=== PATIENT | female | born 1935 | race African-American/Black ===

== ENCOUNTER → 2016-04-08 | Outpatient (CLI) | payer MEDICARE, OTHER ==
[2016-04-08 12:24] LABS: ABSOLUTE EOSINOPHILS # (AUTO) 0.1 10^3/uL (0.0-0.6); ABSOLUTE LYMPHOCYTES (AUTO) 2.1 10^3/uL (0.5-4.7); ABSOLUTE MONOCYTES (AUTO) 0.5 10^3/uL (0.1-1.4); ABSOLUTE NEUT (AUTO) 2.7 10^3/uL (1.7-8.2); BASOPHILS % (AUTO) 0.8 % (0-2); EOSINOPHILS % (AUTO) 1.5 % (0-6); HEMATOCRIT 37.7 % (36.0-47.0); HEMOGLOBIN 11.7 g/dL (12.0-15.5); HGB HCT DIFFERENCE -2.6; LYMPHOCYTES % (AUTO) 38.9 % (13-45); MEAN CORPUSCULAR HEMOGLOBIN 27.4 pg (27.0-33.4); MEAN CORPUSCULAR VOLUME 88 fl (80-97); MONOCYTES % (AUTO) 8.6 % (3-13); RED BLOOD COUNT 4.26 10^6/uL (3.72-5.28); RED CELL DISTRIBUTION WIDTH 17.3 % (11.5-14.0); SEGMENTED NEUTROPHILS % (AUTO) 50.2 % (42-78); WHITE BLOOD COUNT 5.4 10^3/uL (4.0-10.5)
[2016-04-08 12:47] LABS: ALANINE AMINOTRANSFERASE 29 U/L (9-52); ALBUMIN 4.3 g/dL (3.5-5.0); ALKALINE PHOSPHATASE 79 U/L (38-126); ANION GAP 8 (5-19); ASPARTATE AMINO TRANSFERASE 21 U/L (14-36); BILIRUBIN,TOTAL 0.8 mg/dL (0.2-1.3); BLOOD UREA NITROGEN 24 mg/dL (7-20); CALCIUM 9.6 mg/dL (8.4-10.2); CARBON DIOXIDE 29 mmol/L (22-30); CHLORIDE 105 mmol/L (98-107); CREATINE KINASE 72 U/L (30-135); CREATININE RESULT 0.68 mg/dL (0.52-1.25); GLUCOSE 95 mg/dL (75-110); POTASSIUM 4.7 mmol/L (3.6-5.0); SODIUM 142.1 mmol/L (137-145); TOTAL PROTEIN 7.2 g/dL (6.3-8.2); URIC ACID 5.9 mg/dL (2.5-7.5)
[2016-04-08 12:51] LABS: C-REACTIVE PROTEIN < 5.0 mg/L (<10.0)
[2016-04-08 13:03] LABS: ERYTHROCYTE SEDIMENTATION RATE 14 mm/hr (0-30)
== END ==
LOC: OD 11:01
PROVIDERS: ATTEND Internal Medicine Rheumatology
DX: M79.1 Myalgia (principal); Z79.899 Other long term (current) drug therapy; M25.50 Pain in unspecified joint; M79.609 Pain in unspecified limb; M15.0 Primary generalized (osteo)arthritis; M54.5 Low back pain; M05.79 Rheumatoid arthritis with rheumatoid factor of multiple sites without organ or systems involvement; G89.4 Chronic pain syndrome; M10.9 Gout, unspecified
CPT/HCPCS: 36415; 80053; 82550; 84550; 85025; 85652; 86140

== ENCOUNTER → 2016-05-22 | Outpatient (CLI) | payer MEDICARE, OTHER ==
[2016-05-22 15:13] LABS: ALANINE AMINOTRANSFERASE 30 U/L (9-52); ALBUMIN 3.6 g/dL (3.5-5.0); ALKALINE PHOSPHATASE 70 U/L (38-126); ANION GAP 8 (5-19); ASPARTATE AMINO TRANSFERASE 23 U/L (14-36); BILIRUBIN,TOTAL 0.8 mg/dL (0.2-1.3); BLOOD UREA NITROGEN 15 mg/dL (7-20); CALCIUM 9.4 mg/dL (8.4-10.2); CARBON DIOXIDE 30 mmol/L (22-30); CHLORIDE 103 mmol/L (98-107); CHOLESTEROL 134.05 mg/dL (0-200); CREATININE RESULT 0.72 mg/dL (0.52-1.25); Direct HDL 59 mg/dL (>40); GLUCOSE 91 mg/dL (75-110); SODIUM 140.9 mmol/L (137-145); TOTAL PROTEIN 6.4 g/dL (6.3-8.2); TRIGLYCERIDES 48 mg/dL (<150)
[2016-05-22 15:14] LABS: POTASSIUM 4.7 mmol/L (3.6-5.0)
[2016-05-22 15:29] LABS: DIRECT LDL 58 mg/dL (<100)
== END ==
LOC: OD 13:30
PROVIDERS: ATTEND Internal Medicine
DX: Z79.899 Other long term (current) drug therapy (principal)
CPT/HCPCS: 36415; 80053; 80061

== ENCOUNTER 2016-06-06 16:46 | Emergency (ER) | payer MEDICARE, OTHER ==
--- NOTE | 2016-06-06 19:24 | ER Document Report ---
ED General - General Chief Complaint: Near Syncope Stated Complaint: WEAKNESS Notes: Patient is a 80-year-old woman with a history of recurrent syncope who presents after an episode of near-syncope today. States that she was at home with her at home physical therapy assist when she had one of these episodes. That healthcare worker wanted her to be evaluated. At time of my assessment patient denies any complaints. She is immediate asking when she can go home. Denies any chest pain, shortness of breath, headache, neck pain nausea or vomiting. She has not seen her primary care doctor regarding today's episode. Nothing has been noticed to trigger these episodes and they do resolve spontaneously. States this is identical to her prior episodes. TRAVEL OUTSIDE OF THE [place] IN LAST 30 DAYS: No - Related Data Allergies/Adverse Reactions: Penicillins Allergy (Verified 04/17/15 21:11) Past Medical History - General Information source: Patient - Social History Smoking Status: Never Smoker Frequency of alcohol use: None Drug Abuse: None Lives with: Alone Family History: Reviewed & Not Pertinent - Past Medical History Cardiac Medical History: Reports: Hx Atrial Fibrillation - intermittent, Hx Congestive Heart Failure, Hx Hypercholesterolemia, Hx Hypertension Pulmonary Medical History: Reports: Hx Asthma, Hx COPD Denies: Hx Tuberculosis Endocrine Medical History: Reports: Hx Diabetes Mellitus Type 2 GI Medical History: Reports: Hx Gastroesophageal Reflux Disease Musculoskeltal Medical History: Reports Hx Arthritis Past Surgical History: Reports: Hx Cardiac Surgery - implanted recorder, Hx Cholecystectomy, Hx Hysterectomy - Immunizations Hx Diphtheria, Pertussis, Tetanus Vaccination: Yes Hx Pneumococcal Vaccination: 03/17/12 Review of Systems - Review of Systems Notes: Constitutional: Negative for fever. HENT: Negative for sore throat. Eyes: Negative for visual changes. Cardiovascular: Negative for chest pain. Respiratory: Negative for shortness of breath. Gastrointestinal: Negative for abdominal pain, vomiting or diarrhea. Genitourinary: Negative for dysuria. Musculoskeletal: Negative for back pain. Skin: Negative for rash. Neurological: Negative for headaches, weakness or numbness. 10 point ROS negative except as marked above and in HPI. Physical Exam - Vital signs Vitals: Temp Pulse Resp BP Pulse Ox 98.1 F 72 16 125/66 95 06/06/16 17:00 06/06/16 17:00 06/06/16 17:00 06/06/16 17:00 06/06/16 17:00 Interpretation: Normal Notes: PHYSICAL EXAMINATION: GENERAL: Well-appearing, well-nourished and in no acute distress. HEAD: Atraumatic, normocephalic. EYES: Pupils equal round and reactive to light, extraocular movements intact, sclera anicteric, conjunctiva are normal. ENT: nares patent, oropharynx clear without exudates. Moist mucous membranes. NECK: Normal range of motion, supple without lymphadenopathy LUNGS: Breath sounds clear to auscultation bilaterally and equal. No wheezes rales or rhonchi. HEART: Regular rate and rhythm without murmurs ABDOMEN: Soft, nontender, normoactive bowel sounds. No guarding, no rebound. No masses appreciated. EXTREMITIES: Normal range of motion, no pitting or edema. No cyanosis. NEUROLOGICAL: No focal neurological deficits. Moves all extremities spontaneously and on command. PSYCH: Normal mood, normal affect. SKIN: Warm, Dry, normal turgor, no rashes or lesions noted. Course - Re-evaluation Re-evalutation: 06/06/16 19:23 Presentation of near syncope of unclear etiology although patient regularly has these events. Patient states that her home his therapist was concerned about how she appeared during this episode and wanted her evaluated. Patient normotensive, alert, without focal neurologic deficits at time of arrival. Denies syncope was during exertion. No preceding symptoms of palpitations, chest pain, or shortness of breath. Patient asymptomatic at time of arrival. EKG is without evidence of HCOM, right heart strain, ST changes to suggest ischemia, prolong QTc, delta wave, epsilon wave, or Brugada syndrome. Patient denies any family history of sudden cardiac , personal history of of structural heart disease. Patient denies any symptoms to suggest an acute PE, PR , TAD, SAH, seizure, or acute GI bleed as the etiology of their syncope today. On exam, no murmurs to suggest critical aortic stenosis as possible etiology. Based on overall clinical history, exam findings, vitals, and patients appearance, I feel it is safe for patient to be discharged home at this time with close outpatient follow-up and strict return precautions. Patient is in agreement with this plan, has verbalized indications for return to ED, and questions have been answered. - Vital Signs Vital signs: Temp Pulse Resp BP Pulse Ox 98.2 F 79 16 148/56 H 94 06/06/16 21:43 06/06/16 21:43 06/06/16 21:43 06/06/16 21:43 06/06/16 21:43 - Laboratory Result Diagrams: 06/06/16 17:50 06/06/16 17:50 Laboratory results interpreted by me: 06/06/16 06/06/16 17:50 17:50 Hgb 11.5 L MCHC 31.5 L RDW 15.8 H Carbon Dioxide 31 H BUN 21 H - EKG Interpretation by Me Additional EKG results interpreted by me: 06/06/16 20:51 Normal sinus rhythm. Rate 79. No ST elevations or depressions. QTC is 459. Discharge - Discharge Clinical Impression: Near syncope Condition: Good Disposition: HOME, SELF-CARE Additional Instructions: You were seen today after an episode of passing out. Your EKG here is normal. At this time, we do not feel that your episode of passing out was from any life- threatening cause. Please drink plenty of fluids over the next several days. Return to emergency department if you have any further episodes of syncope, headache, weakness, numbness, chest pain, or shortness of breath. Please follow up closely with your primary care physician. Referrals: ONUR CAMPO MD [Primary Care Provider] - Follow up as needed
[2016-06-06 20:09] LABS: HEMATOCRIT 36.6 % (36.0-47.0); HEMOGLOBIN 11.5 g/dL (12.0-15.5); HGB HCT DIFFERENCE -2.1; MEAN CORPUSCULAR HEMOGLOBIN 27.6 pg (27.0-33.4); MEAN CORPUSCULAR HGB CONC 31.5 g/dL (32.0-36.0); MEAN CORPUSCULAR VOLUME 88 fl (80-97); RED BLOOD COUNT 4.17 10^6/uL (3.72-5.28); RED CELL DISTRIBUTION WIDTH 15.8 % (11.5-14.0); WHITE BLOOD COUNT 7.2 10^3/uL (4.0-10.5)
[2016-06-06 20:26] LABS: ANION GAP 9 (5-19); BLOOD UREA NITROGEN 21 mg/dL (7-20); CARBON DIOXIDE 31 mmol/L (22-30); CHLORIDE 101 mmol/L (98-107); CREATININE RESULT 0.88 mg/dL (0.52-1.25); GLUCOSE 104 mg/dL (75-110); POTASSIUM 4.2 mmol/L (3.6-5.0); SODIUM 140.9 mmol/L (137-145)
--- NOTE | 2016-06-06 20:52 | EKG REPORT ---
SEVERITY:- NORMAL ECG - SINUS RHYTHM : Confirmed by: Chin Rivers 06-Jun-2016 20:51:49
[2016-06-06 22:00] VITALS: BP 148/56
== END 2016-06-06 21:58 | disposition home or self-care (01) ==
LOC: ER 16:46
DX: R55 Syncope and collapse (principal); R53.1 Weakness
CPT/HCPCS: 36415; 80048; 85027; 93005; 93010; 99284

== ENCOUNTER 2016-06-10 15:20 | Emergency (ER) | payer MEDICARE, OTHER ==
[2016-06-10 17:21] LABS: ABSOLUTE EOSINOPHILS # (AUTO) 0.1 10^3/uL (0.0-0.6); ABSOLUTE LYMPHOCYTES (AUTO) 1.8 10^3/uL (0.5-4.7); ABSOLUTE MONOCYTES (AUTO) 0.5 10^3/uL (0.1-1.4); ABSOLUTE NEUT (AUTO) 2.9 10^3/uL (1.7-8.2); BASOPHILS % (AUTO) 0.5 % (0-2); HEMATOCRIT 38.2 % (36.0-47.0); HEMOGLOBIN 12.3 g/dL (12.0-15.5); HGB HCT DIFFERENCE -1.3; LYMPHOCYTES % (AUTO) 33.2 % (13-45); MEAN CORPUSCULAR HEMOGLOBIN 27.8 pg (27.0-33.4); MEAN CORPUSCULAR HGB CONC 32.1 g/dL (32.0-36.0); MEAN CORPUSCULAR VOLUME 87 fl (80-97); MONOCYTES % (AUTO) 10.2 % (3-13); RED BLOOD COUNT 4.41 10^6/uL (3.72-5.28); RED CELL DISTRIBUTION WIDTH 15.8 % (11.5-14.0); SEGMENTED NEUTROPHILS % (AUTO) 55.1 % (42-78); WHITE BLOOD COUNT 5.3 10^3/uL (4.0-10.5)
[2016-06-10 17:35] LABS: ALANINE AMINOTRANSFERASE 31 U/L (9-52); ALBUMIN 3.9 g/dL (3.5-5.0); ALKALINE PHOSPHATASE 86 U/L (38-126); ANION GAP 9 (5-19); ASPARTATE AMINO TRANSFERASE 27 U/L (14-36); BILIRUBIN,DIRECT 0.1 mg/dL (0.0-0.4); BILIRUBIN,TOTAL 0.9 mg/dL (0.2-1.3); BLOOD UREA NITROGEN 11 mg/dL (7-20); CALCIUM 9.9 mg/dL (8.4-10.2); CARBON DIOXIDE 33 mmol/L (22-30); CHLORIDE 100 mmol/L (98-107); CREATININE RESULT 0.66 mg/dL (0.52-1.25); GLUCOSE 88 mg/dL (75-110); POTASSIUM 4.3 mmol/L (3.6-5.0); SODIUM 141.6 mmol/L (137-145); TOTAL PROTEIN 6.7 g/dL (6.3-8.2)
--- NOTE | 2016-06-10 19:11 | EKG REPORT ---
SEVERITY:- NORMAL ECG - SINUS RHYTHM : Confirmed by: Louisa Alexis MD 10-Jun-2016 19:10:32
[2016-06-10 21:46] LABS: APPEARANCE,URINE CLEAR; BILIRUBIN,URINE NEGATIVE (NEGATIVE); GLUCOSE, URINE NEGATIVE (NEGATIVE); KETONES,URINE TRACE mg/dL (NEGATIVE); LEUKOCYTE ESTERASE,URINE NEGATIVE (NEGATIVE); NITRITE,URINE NEGATIVE (NEGATIVE); PROTEIN,URINE NEGATIVE (NEGATIVE); URINE SPECIFIC GRAVITY 1.015
--- NOTE | 2016-06-10 22:50 | ER Document Report ---
ED General - General Chief Complaint: Urinary Problem Stated Complaint: WEAKNESS Mode of Arrival: Medic Information source: Patient, Emergency Med Personnel, [facility] Records Notes: This is a 80-year-old female with multiple medical problems who presents via EMS for generalized weakness and failure to thrive. Of note this patient lives alone and has had to call 911 multiple times more than 15 times this past week for persistence getting out of her chair. She states that she is too weak to get up and move around her house. Apparently Adult Protective Services was involved in the worker came out to the house today but the patient was not able to get up to unlock the door for her. Secondary to generalized weakness and inability to get up out of the chair, the patient has not been taking her home medications consistently. Otherwise she has no complaints. She denies fevers or chills. She has been tolerating food without problem. No abdominal pain nausea or vomiting. She denies any dysuria. TRAVEL OUTSIDE OF THE [place] IN LAST 30 DAYS: No - Related Data Allergies/Adverse Reactions: Penicillins Allergy (Verified 04/17/15 21:11) Home Medications: Current Home Medications Warfarin Sodium [Coumadin 5 mg Tablet] 7.5 mg PO Q7D 06/11/16 [History] Past Medical History - General Information source: Patient, [facility] Records - Social History Smoking Status: Never Smoker Chew tobacco use (# tins/day): No Frequency of alcohol use: None Drug Abuse: None Family History: Reviewed & Not Pertinent - Past Medical History Cardiac Medical History: Reports: Hx Atrial Fibrillation - intermittent, Hx Congestive Heart Failure, Hx Hypercholesterolemia, Hx Hypertension Pulmonary Medical History: Reports: Hx Asthma, Hx COPD Denies: Hx Tuberculosis Endocrine Medical History: Reports: Hx Diabetes Mellitus Type 2 GI Medical History: Reports: Hx Gastroesophageal Reflux Disease Musculoskeltal Medical History: Reports Hx Arthritis Past Surgical History: Reports: Hx Cardiac Surgery - implanted recorder, Hx Cholecystectomy, Hx Hysterectomy - Immunizations Hx Diphtheria, Pertussis, Tetanus Vaccination: Yes Hx Pneumococcal Vaccination: 03/17/12 Review of Systems - Review of Systems Notes: REVIEW OF SYSTEMS: CONSTITUTIONAL : Denies fever, chills, or sweats. Denies recent illness. EENT: Denies eye, ear, throat, or mouth pain or symptoms. Denies nasal or sinus congestion. CARDIOVASCULAR: Denies chest pain. RESPIRATORY: Denies cough, cold, or chest congestion. Denies shortness of breath, difficulty breathing, or wheezing. GASTROINTESTINAL: Denies abdominal pain. Denies nausea, vomiting, or diarrhea. GENITOURINARY: Denies difficulty urinating, painful urination, burning, frequency, or blood in urine. MUSCULOSKELETAL: Denies neck or back pain or joint pain or swelling. SKIN: Denies rash or skin lesions. HEMATOLOGIC : Denies easy bruising or bleeding. LYMPHATIC: Denies swollen, enlarged glands. NEUROLOGICAL: Denies altered mental status or loss of consciousness. Denies headache. Generalized weakness as per history of present illness PSYCHIATRIC: Denies anxiety or stress or depression. ALL OTHER SYSTEMS REVIEWED AND NEGATIVE. Physical Exam - Vital signs Vitals: Temp Pulse Resp BP Pulse Ox 99.6 F 80 16 159/54 H 94 06/11/16 04:53 06/11/16 04:53 06/11/16 04:53 06/11/16 04:53 06/11/16 04:53 - Notes Notes: PHYSICAL EXAMINATION: GENERAL: Somewhat disheveled but otherwise Well-appearing, well-nourished and in no acute distress. Pleasant and conversant HEAD: Atraumatic, normocephalic. EYES: Pupils equal round and reactive to light, extraocular movements intact, sclera anicteric, conjunctiva are normal. ENT: nares patent, oropharynx clear without exudates. Moist mucous membranes. NECK: Normal range of motion, supple without lymphadenopathy LUNGS: Breath sounds clear to auscultation bilaterally and equal. No wheezes rales or rhonchi. HEART: Regular rate and rhythm without murmurs ABDOMEN: Soft, nontender, normoactive bowel sounds. No guarding, no rebound. No masses appreciated. EXTREMITIES: Normal range of motion, no pitting or edema. No cyanosis. NEUROLOGICAL: Cranial nerves grossly intact. Alert and oriented 4. No gross focal motor or sensory deficits appreciated. PSYCH: Normal mood, normal affect. SKIN: Warm, Dry, normal turgor, no rashes or lesions noted. Course - Re-evaluation Re-evalutation: 06/10/16 22:58 Discussed with pt's PCP Dr. Campo... who states that there is no medical need for admission at this time. However, I do not feel that patient is appropriate for discharge home at this time, as she lives alone and she cannot care for herself as she is too weak to get up out of her chair and she has not been taking her medications. As noted, she has called EMS over 15 times this week for assistance with getting up. respiratory services manager has been consulted in the ER and will resume their evaluation and recommendations in the morning. [facility] is involved with the case as well. 06/11/16 17:50 Pt with no new complaints today. She has remained hemodynamically stable and comfortable in the ER. I have reviewed the notes from social work. Social work plan and disposition as noted below: AT THIS TIME, PATIENT DOES NOT MEET INPATIENT CRITERIA, THEREFORE, IS NOT ELIGIBLE FOR REHABILITATION PLACEMENT. PER ROOPA, PATIENT'S DAUGHTER, ABIOLA ), HAS BEEN ASKING PATIENT TO COME LIVE WITH HER FOR QUITE SOME TIME. THIS RN AND ROOPA, BOTH, EDUCATED PATIENT ON RISKS OF GOING HOME ALONE. PATIENT , WHO IS ALERT AND ORIENTED X4, STATED THAT SHE WOULD RATHER RETURN HOME TO BEGIN WITH SO SHE CAN GET HER BILLS ORGANIZED AND THEN SHE MAY BE WILLING TO MOVE WITH HER DAUGHTER. THIS RN SPOKE WITH [place], [employer]RE DRAWER FOR DR CAMPO, WHO ALSO REPORTS THAT PATIENT DOES NOT MEET INPATIENT CRITERIA. AT THIS TIME, AT PATIENT'S REQUEST, PATIENT WILL BE DISCHARGED HOME. PATIENT VERBALIZED UNDERSTANDING. Patient understands the risks of going home alone and she is alert and oriented to make this decision for herself. - Vital Signs Vital signs: Temp Pulse Resp BP Pulse Ox 98.4 F 78 16 154/90 H 98 06/11/16 18:00 06/11/16 18:00 06/11/16 18:00 06/11/16 18:00 06/11/16 18:00 - Laboratory Result Diagrams: 06/10/16 17:05 06/10/16 17:05 Laboratory results interpreted by me: 06/10/16 06/10/16 06/10/16 17:05 17:05 21:30 RDW 15.8 H Carbon Dioxide 33 H Urine Ketones TRACE H Urine Blood SMALL H Urine Urobilinogen 2.0 H - Diagnostic Test Radiology reviewed: Reports reviewed - CXR neg Discharge - Discharge Clinical Impression: Generalized weakness, Failure to thrive in adult Condition: Stable Disposition: HOME, SELF-CARE Additional Instructions: As discussed with psychiatric social worker and with your baker test at [facility], it is advised that you proceed with arrangements to live with family such as your daughter. Please return to the emergency department for any worsening symptoms or concerns especially for any chest pain, fever, breathing trouble or other concerns. Follow up with Dr. Campo this week as instructed.
[2016-06-11] MEDS ORDERED: ALBUTEROL SULFATE HFA (90 MCG/PUFF) 200 PUFF/8.5 GM MDI IH PRN (02:20)
[2016-06-11] MEDS ORDERED: (PENDING PHARMACY ID) (Warfarin Sodium 5 MG) PO PRN (02:27)
[2016-06-11] MEDS ORDERED: TRAMADOL HCL 50 MG TABLET PO PRN (02:27)
[2016-06-11] MEDS ORDERED: (PENDING PHARMACY ID) (Warfarin Sodium 7.5 MG) PO SCH (02:30)
[2016-06-11] MEDS ORDERED: ERGOCALCIFEROL (VITAMIN D2) 50000 UNIT (1.25 MG) CAPSULE PO SCH ×2 (03:00→07:30)
[2016-06-11] MEDS ORDERED: LANSOPRAZOLE 30 MG TAB.RAP.DR PO SCH (06:00)
[2016-06-11] MEDS: CLINDAMYCIN HCL 150 MG CAPSULE PO SCH ×2 (06:36→20:02)
[2016-06-11] MEDS: PROCHLORPERAZINE MALEATE 10 MG TABLET PO SCH ×2 (06:39→12:00)
[2016-06-11] MEDS ORDERED: LORATADINE 10 MG TABLET PO SCH (10:00)
[2016-06-11] MEDS ORDERED: BUDESONIDE/FORMOTEROL 160-4.5 MCG 60 PUFF/6 GM MDI IH SCH (10:00)
[2016-06-11] MEDS ORDERED: TIOTROPIUM BROMIDE DPI 5 CAP/KIT (18 MCG/CAP) IH SCH (10:00)
[2016-06-11] MEDS ORDERED: CALCIUM CARBONATE 250 MG/VITAMIN D3 125 UNIT TABLET PO SCH (10:00)
[2016-06-11] MEDS ORDERED: CIPROFLOXACIN HCL 500 MG TABLET PO SCH (10:00)
[2016-06-11] MEDS ORDERED: FOLIC ACID 1 MG TABLET PO SCH (10:00)
[2016-06-11] MEDS ORDERED: ALLOPURINOL 100 MG TABLET PO SCH (10:00)
[2016-06-11] MEDS ORDERED: LOSARTAN POTASSIUM 50 MG TABLET PO SCH (10:00)
[2016-06-11] MEDS ORDERED: CYANOCOBALAMIN (VITAMIN B-12) 1,000 MCG TABLET PO SCH (10:00)
[2016-06-11] MEDS ORDERED: (PENDING PHARMACY ID) (Warfarin Sodium 5 MG) PO SCH (22:00)
[2016-06-11] MEDS ORDERED: WARFARIN SODIUM 5 MG TABLET PO SCH (22:00)
[2016-06-12 01:58] VITALS: BP 101/72
[2016-06-14] MEDS ORDERED: METHOTREXATE SODIUM 2.5 MG TABLET PO SCH ×2 (10:00)
[2016-06-15] MEDS ORDERED: WARFARIN SODIUM 7.5 MG TABLET PO SCH (22:00)
[2016-06-15] MEDS ORDERED: (PENDING PHARMACY ID) (Warfarin Sodium 7.5 MG) PO SCH (22:00)
== END 2016-06-11 21:10 | disposition home or self-care (01) ==
LOC: ER 15:20
DX: R53.1 Weakness (principal); R62.7 Adult failure to thrive; R39.198 Other difficulties with micturition; Z79.01 Long term (current) use of anticoagulants
CPT/HCPCS: 93005; 99285; 36415; 85025; 80053; 81001; 71010; 93010; A9270 ×9; J3490 ×2; S0183

== ENCOUNTER → 2016-09-03 | Outpatient (CLI) | payer MEDICARE, OTHER ==
[2016-09-03 14:38] LABS: ABSOLUTE EOSINOPHILS # (AUTO) 0.1 10^3/uL (0.0-0.6); ABSOLUTE LYMPHOCYTES (AUTO) 2.1 10^3/uL (0.5-4.7); ABSOLUTE MONOCYTES (AUTO) 0.3 10^3/uL (0.1-1.4); ABSOLUTE NEUT (AUTO) 1.7 10^3/uL (1.7-8.2); EOSINOPHILS % (AUTO) 2.4 % (0-6); HEMATOCRIT 38.9 % (36.0-47.0); HEMOGLOBIN 12.3 g/dL (12.0-15.5); LYMPHOCYTES % (AUTO) 48.5 % (13-45); MEAN CORPUSCULAR HEMOGLOBIN 27.4 pg (27.0-33.4); MEAN CORPUSCULAR HGB CONC 31.7 g/dL (32.0-36.0); MEAN CORPUSCULAR VOLUME 86 fl (80-97); RED CELL DISTRIBUTION WIDTH 16.1 % (11.5-14.0); SEGMENTED NEUTROPHILS % (AUTO) 40.1 % (42-78); WHITE BLOOD COUNT 4.3 10^3/uL (4.0-10.5)
[2016-09-03 15:04] LABS: ALANINE AMINOTRANSFERASE 21 U/L (9-52); ALBUMIN 4.1 g/dL (3.5-5.0); ALKALINE PHOSPHATASE 80 U/L (38-126); ANION GAP 11 (5-19); ASPARTATE AMINO TRANSFERASE 24 U/L (14-36); BILIRUBIN,DIRECT 0.3 mg/dL (0.0-0.4); BILIRUBIN,TOTAL 0.8 mg/dL (0.2-1.3); BLOOD UREA NITROGEN 18 mg/dL (7-20); CALCIUM 9.4 mg/dL (8.4-10.2); CARBON DIOXIDE 27 mmol/L (22-30); CHLORIDE 103 mmol/L (98-107); CHOLESTEROL 174.88 mg/dL (0-200); CREATININE RESULT 0.77 mg/dL (0.52-1.25); Direct HDL 73 mg/dL (>40); GLUCOSE 83 mg/dL (75-110); POTASSIUM 4.4 mmol/L (3.6-5.0); SODIUM 141.2 mmol/L (137-145); TOTAL PROTEIN 7.3 g/dL (6.3-8.2); TRIGLYCERIDES 60 mg/dL (<150)
[2016-09-03 15:14] LABS: DIRECT LDL 80 mg/dL (<100)
== END ==
LOC: OD 13:29
PROVIDERS: ATTEND Internal Medicine
DX: E78.2 Mixed hyperlipidemia (principal); R79.89 Other specified abnormal findings of blood chemistry; Z13.29 Encounter for screening for other suspected endocrine disorder; Z79.899 Other long term (current) drug therapy; E55.9 Vitamin D deficiency, unspecified
CPT/HCPCS: 36415; 80053; 80061; 82306; 84443; 85025

== ENCOUNTER → 2017-01-07 | Outpatient (CLI) | payer MEDICARE, OTHER ==
--- NOTE | 2017-01-07 16:14 | WOMENS IMAGING REPORT ---
EXAM DESCRIPTION: BILAT SCREENING MAMMO W/CAD COMPLETED DATE/TIME: 01/07/2017 2:18 pm REASON FOR STUDY: ROUTINE SCREENING; Z12.31 Z12.31 ENCNTR SCREEN MAMMOGRAM FOR MALIGNANT NEOPLASM O F LINDSEY COMPARISON: 12/28/2015 and 10/18/2014. TECHNIQUE: Standard craniocaudal and mediolateral oblique views of each breast recorded using digita l acquisition. LIMITATIONS: None. FINDINGS: No masses, calcifications or architectural distortion. No areas of suspicion. Read with the assistance of CAD. .[facility] - R2 Cenova Version 1.3 .[facility] - R2 Cenova Version 1.3 .[facility] - R2 Cenova Version 2.4 .[facility] [place] [place] - R2 Cenova Version 2.4 .[facility] - R2 Stripe Matcher Version 9.2 IMPRESSION: NORMAL MAMMOGRAM. BIRADS 1. BREAST DENSITY: b. There are scattered areas of fibroglandular density. BIRAD: 1 NEGATIVE RECOMMENDATION: ROUTINE SCREENING COMMENT: The patient has been notified of the results by letter per MQSA requirements. Additional no tification policies are in place for contacting patient with suspicious or incomplete findings. Quality ID #[id number]: [employer] recommends an annual screening mammogram for women aged 40 years or over. This facility utilizes a reminder system to ensure that all patients receive reminder letters, and/or direct phone calls for appointments. This includes reminders for routine scr eening mammograms, diagnostic mammograms, or other Breast Imaging Interventions when appropriate. Th is patient will be placed in the appropriate reminder system. [employer] [place] [employer] (ACR) has developed recommendations for screening MRI of the breast s in certain patient populations, to be used in conjunction with mammography. Breast MRI surveillanc e may be appropriate for women with more than 20% lifetime risk of developing breast cancer as deter mined by genetic testing, significant family history of the disease, or history of mantle radiation f or Hodgkins Disease. ACR Practice Guidelines 2008. TECHNICAL DOCUMENTATION: FINDING NUMBER: (1) ASSESSMENT: (1) JOB ID: [id number] [email or web address]- All Rights Reserved
== END ==
LOC: WI 10:46
PROVIDERS: ATTEND Internal Medicine
DX: Z12.31 Encounter for screening mammogram for malignant neoplasm of breast (principal)
CPT/HCPCS: 77067; G0202

== ENCOUNTER 2017-03-20 09:48 | Emergency (ER) | payer MEDICARE, OTHER ==
--- NOTE | 2017-03-20 10:11 | ER Document Report ---
ED GI/ - General Chief Complaint: Pain With Urination Stated Complaint: POSSIBLE UTI Time Seen by Provider: 03/20/17 09:54 Mode of Arrival: Ambulatory - Uses a walker Information source: [facility], [facility] Records Notes: This 81-year-old female patient who lives alone at home but gets [facility] to come in by and help with activities and wound dressings. She reports she thinks she has been developing urinary tract infection for several days. She has not had much energy and spent more time sitting in her wheelchair in her diaper. She does have a very slightly elevated temperature today that is less than 100. There are no other systemic symptoms reported. TRAVEL OUTSIDE OF THE [place] IN LAST 30 DAYS: No - Related Data Allergies/Adverse Reactions: Penicillins Allergy (Verified 03/20/17 09:49) Past Medical History - General Information source: Patient, [facility] Records - Social History Smoking Status: Never Smoker Cigarette use (# per day): No Chew tobacco use (# tins/day): No Smoking Education Provided: No Frequency of alcohol use: None Drug Abuse: None Occupation: Retired Lives with: Alone Family History: Reviewed & Not Pertinent Patient has suicidal ideation: No Patient has homicidal ideation: No - Past Medical History Cardiac Medical History: Reports: Hx Atrial Fibrillation - intermittent, Hx Congestive Heart Failure, Hx Hypercholesterolemia, Hx Hypertension Pulmonary Medical History: Reports: Hx Asthma, Hx COPD EENT Medical History: Reports: None Neurological Medical History: Reports: None Endocrine Medical History: Reports: Hx Diabetes Mellitus Type 2 Renal/ Medical History: Reports: None GI Medical History: Reports: Hx Gastroesophageal Reflux Disease Musculoskeltal Medical History: Reports Hx Arthritis - 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 Psychiatric Medical History: Reports: None Past Surgical History: Reports: Hx Cardiac Surgery - implanted recorder, Hx Cholecystectomy, Hx Hysterectomy - Immunizations Hx Diphtheria, Pertussis, Tetanus Vaccination: Yes Hx Pneumococcal Vaccination: 03/17/12 Review of Systems - Review of Systems Constitutional: No symptoms reported EENT: No symptoms reported Cardiovascular: No symptoms reported Respiratory: No symptoms reported Gastrointestinal: No symptoms reported Genitourinary: See HPI Female Genitourinary: Post menopausal Musculoskeletal: Joint pain, Leg swelling - Chronic left leg swelling with chronic wound dressings Skin: Other - See above Hematologic/Lymphatic: No symptoms reported Neurological/Psychological: No symptoms reported Physical Exam - Vital signs Vitals: Temp Pulse Resp BP Pulse Ox 99.2 F 99 18 182/84 H 97 03/20/17 09:52 03/20/17 09:52 03/20/17 09:52 03/20/17 09:52 03/20/17 09:52 Interpretation: Hypertensive - General General appearance: Appears well, Alert In distress: None - HEENT Head: Normocephalic, Atraumatic Eyes: Normal Pupils: PERRL Neck: Normal - Respiratory Respiratory status: No respiratory distress Breath sounds: Normal - Cardiovascular Rhythm: Regular Heart sounds: Normal auscultation Murmur: No - Abdominal Inspection: Normal Distension: No distension Bowel sounds: Normal Tenderness: Nontender - Genitourinary External exam: Other - The nurses took the patient to another room to get a catheterized urine. They said that the area was somewhat dirty excoriated looking. They did clean her up and put her in a fresh diaper. She did report that she has ointment at home to use on that area, but the home health person told her not to use it that she had a urine infection and to come to the emergency room. - Back Back: Nontender - There is some kyphosis thoracic spine - Extremities General upper extremity: Normal inspection General lower extremity: Other - The left leg has chronic wound dressings applied and is swollen relative to the right leg. Patient reports that the wounds are almost healed and she will not need dressings much longer. Knee: Other - Both knees are quite enlarged from osteoarthritis with the left little larger than the right. - Neurological Neuro grossly intact: Yes - Psychological Associated symptoms: Normal affect, Normal mood - Skin Skin Temperature: Warm Skin Moisture: Dry Skin Color: Normal Course - Re-evaluation Re-evalutation: 03/20/17 12:24 Lab work is unremarkable. The urine does not look like an infection with negative leukocyte esterase, negative nitrites, and 2 WBCs. - Vital Signs Vital signs: Temp Pulse Resp BP Pulse Ox 99.2 F 98 18 146/69 H 87 L 03/20/17 13:07 03/20/17 13:07 03/20/17 13:07 03/20/17 13:07 03/20/17 13:07 - Laboratory Result Diagrams: 03/20/17 10:15 03/20/17 10:15 Laboratory results interpreted by me: 01/01/2503/20/17 03/20/17 10:15 10:15 10:15 Hgb 11.9 L RDW 16.0 H Lymphocytes % 12.5 L PT Glucose 113 H AST 68 H Creatine Kinase Total Protein 6.2 L Urine Protein 30 H Urine Ketones 20 H Urine Blood MODERATE H Urine Urobilinogen 2.0 H 03/20/17 03/20/17 10:15 13:52 Hgb RDW Lymphocytes % PT 17.6 H Glucose AST Creatine Kinase 2189 H Total Protein Urine Protein Urine Ketones Urine Blood Urine Urobilinogen - EKG Interpretation by Ri EKG shows normal: Sinus rhythm, [place], Intervals, ST-T Waves. abnormal: QRS Complexes - Borderline R-wave progression in the anterior leads Rate: Normal - 98 Rhythm: NSR When compared to previous EKG there are: No significant change - Consults Dr. Campo Time consulted: 14:50 Consulted provider: follow-up in office - Discussed case with Dr. Campo, his office records indicate the patient takes simvastatin which would explain her rhabdomyolysis. Discharge - Discharge Clinical Impression: Perineal irritation in female, Rhabdomyolysis due to statin therapy Condition: Stable Disposition: HOME, SELF-CARE Additional Instructions: You have breakdown of skeletal muscle causing high levels of the muscle enzymes in your bloodstream. This is most likely caused by the simvastatin you take for cholesterol. You will need to stop taking your simvastatin. Drink plenty of fluids over the next few days. The urine did not look like an infection. You do have some irritation and excoriation in the perineal region due to sitting in a wet diaper. When you get home, you should put some of your ointment on the irritated area and be sure to change the diaper every time it gets wet. Follow-up with Dr. Campo on Friday to recheck your symptoms and your blood work. RETURN TO THE EMERGENCY ROOM IF ANY NEW OR WORSENING SYMPTOMS. Referrals: ONUR CAMPO MD [ACTIVE STAFF] - 03/24/17
[2017-03-20 11:00] LABS: ALANINE AMINOTRANSFERASE 35 U/L (9-52); ALBUMIN 3.5 g/dL (3.5-5.0); ALKALINE PHOSPHATASE 62 U/L (38-126); ANION GAP 10 (5-19); ASPARTATE AMINO TRANSFERASE 68 U/L (14-36); BILIRUBIN,DIRECT 0.2 mg/dL (0.0-0.4); BILIRUBIN,TOTAL 0.8 mg/dL (0.2-1.3); BLOOD UREA NITROGEN 15 mg/dL (7-20); CALCIUM 9.3 mg/dL (8.4-10.2); CARBON DIOXIDE 29 mmol/L (22-30); CHLORIDE 104 mmol/L (98-107); GLUCOSE 113 mg/dL (75-110); POTASSIUM 3.6 mmol/L (3.6-5.0); TOTAL PROTEIN 6.2 g/dL (6.3-8.2)
[2017-03-20 11:03] LABS: ABSOLUTE BASOPHILS # (AUTO) 0.1 10^3/uL (0.0-0.2); ABSOLUTE LYMPHOCYTES (AUTO) 1.1 10^3/uL (0.5-4.7); ABSOLUTE MONOCYTES (AUTO) 0.7 10^3/uL (0.1-1.4); ABSOLUTE NEUT (AUTO) 6.5 10^3/uL (1.7-8.2); BASOPHILS % (AUTO) 0.7 % (0-2); EOSINOPHILS % (AUTO) 0.3 % (0-6); HEMOGLOBIN 11.9 g/dL (12.0-15.5); LYMPHOCYTES % (AUTO) 12.5 % (13-45); MEAN CORPUSCULAR HEMOGLOBIN 28.8 pg (27.0-33.4); MEAN CORPUSCULAR HGB CONC 32.2 g/dL (32.0-36.0); MEAN CORPUSCULAR VOLUME 89 fl (80-97); MONOCYTES % (AUTO) 8.8 % (3-13); PLATELET COUNT 229 10^3/uL (150-450); RED BLOOD COUNT 4.14 10^6/uL (3.72-5.28); SEGMENTED NEUTROPHILS % (AUTO) 77.7 % (42-78); TOTAL CELLS COUNTED % (AUTO) 100 %; WHITE BLOOD COUNT 8.4 10^3/uL (4.0-10.5)
[2017-03-20 11:30] LABS: APPEARANCE,URINE SLIGHTLY-CLOUDY; BILIRUBIN,URINE NEGATIVE (NEGATIVE); COLOR,URINE YELLOW; GLUCOSE, URINE NEGATIVE (NEGATIVE); KETONES,URINE 20 mg/dL (NEGATIVE); LEUKOCYTE ESTERASE,URINE NEGATIVE (NEGATIVE); NITRITE,URINE NEGATIVE (NEGATIVE); PROTEIN,URINE 30 mg/dL (NEGATIVE); URINE SPECIFIC GRAVITY 1.018
[2017-03-20 12:53] LABS: CREATINE KINASE 2189 U/L (30-135)
[2017-03-20 13:23] VITALS: BP 146/69
[2017-03-20 14:05] LABS: INTERNATIONAL RATION (INR) 1.35; PROTHROMBIN TIME 17.6 SEC (11.4-15.4)
[2017-03-20] MEDS ORDERED: NORMAL SALINE 1000 ML 1,000 ML IV ONE (14:56)
--- NOTE | 2017-03-20 19:05 | EKG REPORT ---
SEVERITY:- BORDERLINE ECG - SINUS RHYTHM BORDERLINE R WAVE PROGRESSION, ANTERIOR LEADS : Confirmed by: Tony Mahoney MD 20-Mar-2017 19:05:01
== END 2017-03-20 19:55 | disposition home or self-care (01) ==
LOC: ER 09:48
DX: L29.3 Anogenital pruritus, unspecified (principal); M62.82 Rhabdomyolysis; R30.0 Dysuria; I48.91 Unspecified atrial fibrillation; I50.9 Heart failure, unspecified; E78.00 Pure hypercholesterolemia, unspecified; I11.0 Hypertensive heart disease with heart failure; J44.9 Chronic obstructive pulmonary disease, unspecified; E11.9 Type 2 diabetes mellitus without complications; Z79.899 Other long term (current) drug therapy; Z88.0 Allergy status to penicillin; Z90.49 Acquired absence of other specified parts of digestive tract; Z90.710 Acquired absence of both cervix and uterus
CPT/HCPCS: 93005; 99284; 36415; 87086; 82550; 85025; 85610; 87088; 80053; 81001; 84484; 87186; 93010; J7030

== ENCOUNTER 2017-03-25 14:25 | Inpatient (IN) | payer MEDICARE ==
--- NOTE | 2017-03-25 15:59 | ER Document Report ---
ED Medical Screen (RME) - General Chief Complaint: Medical Complaint Stated Complaint: IMMOBILITY Time Seen by Provider: 03/25/17 15:53 Mode of Arrival: Medic Information source: Patient Notes: 81 yo female that lives alone until recently, daughter moved in 03-19. Dr Guillory wanted her to come to hospital to be admitted for 3 days for rehab placement. Came by EMS. Problem is that she can't get out of bed since last due to pain down both legs and weakness. Aide could not get her out of bed to stand today. (aid comes twice a week.) Got UTI last week. Fever the other day- was here at [facility] last Friday- sent home. Hx venous insufficiency, A fib, DVT COPD , RA, OA, GOUT. No chest or abd pain. No headache. TRAVEL OUTSIDE OF THE [place] 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
[2017-03-25 18:16] LABS: ABSOLUTE BASOPHILS # (AUTO) 0.1 10^3/uL (0.0-0.2); ABSOLUTE EOSINOPHILS # (AUTO) 0.1 10^3/uL (0.0-0.6); ABSOLUTE LYMPHOCYTES (AUTO) 1.4 10^3/uL (0.5-4.7); ABSOLUTE MONOCYTES (AUTO) 0.7 10^3/uL (0.1-1.4); ABSOLUTE NEUT (AUTO) 5.8 10^3/uL (1.7-8.2); BASOPHILS % (AUTO) 0.6 % (0-2); EOSINOPHILS % (AUTO) 1.7 % (0-6); HEMATOCRIT 39.3 % (36.0-47.0); HEMOGLOBIN 12.5 g/dL (12.0-15.5); LYMPHOCYTES % (AUTO) 17.1 % (13-45); MEAN CORPUSCULAR HEMOGLOBIN 28.7 pg (27.0-33.4); MEAN CORPUSCULAR HGB CONC 31.9 g/dL (32.0-36.0); MEAN CORPUSCULAR VOLUME 90 fl (80-97); MONOCYTES % (AUTO) 8.9 % (3-13); PLATELET COUNT 210 10^3/uL (150-450); RED BLOOD COUNT 4.37 10^6/uL (3.72-5.28); RED CELL DISTRIBUTION WIDTH 15.6 % (11.5-14.0); SEGMENTED NEUTROPHILS % (AUTO) 71.7 % (42-78); TOTAL CELLS COUNTED % (AUTO) 100 %; WHITE BLOOD COUNT 8.1 10^3/uL (4.0-10.5)
--- NOTE | 2017-03-25 18:30 | RADIOLOGY REPORT (SQ) ---
EXAM DESCRIPTION: CHEST SINGLE VIEW COMPLETED DATE/TIME: 03/25/2017 6:17 pm REASON FOR STUDY: weakness COMPARISON: June 2016 EXAM PARAMETERS: NUMBER OF VIEWS: One view. TECHNIQUE: Single frontal radiographic view of the chest acquired. RADIATION DOSE: NA LIMITATIONS: None. FINDINGS: LUNGS AND PLEURA: No opacities, masses or pneumothorax. No pleural effusion. Linear densi ty is identified in the left lower lung field which could represent subsegmental atelectasis or scarr ing. MEDIASTINUM AND HILAR STRUCTURES: No masses. Contour normal. HEART AND VASCULAR STRUCTURES: The configuration of the heart mediastinal structures is unchanged. BONES: No acute findings. HARDWARE: Cardiac monitoring device is again identified overlying the left lower hemithorax OTHER: No other significant finding. IMPRESSION: NO ACUTE RADIOGRAPHIC FINDING IN THE CHEST. TECHNICAL DOCUMENTATION: JOB ID: [id number] [employer]- All Rights Reserved
[2017-03-25 18:34] LABS: ALANINE AMINOTRANSFERASE 38 U/L (9-52); ALBUMIN 3.4 g/dL (3.5-5.0); ALKALINE PHOSPHATASE 53 U/L (38-126); ANION GAP 12 (5-19); ASPARTATE AMINO TRANSFERASE 53 U/L (14-36); BILIRUBIN,DIRECT 0.5 mg/dL (0.0-0.4); BLOOD UREA NITROGEN 25 mg/dL (7-20); CALCIUM 9.3 mg/dL (8.4-10.2); CARBON DIOXIDE 32 mmol/L (22-30); CHLORIDE 94 mmol/L (98-107); CREATINE KINASE 1025 U/L (30-135); GLUCOSE 96 mg/dL (75-110); MAGNESIUM 1.7 mg/dL (1.6-2.3); POTASSIUM 3.6 mmol/L (3.6-5.0); SODIUM 137.8 mmol/L (137-145)
[2017-03-25 18:45] LABS: CREATINE KINASE MB 4.08 ng/mL (<4.55)
[2017-03-25] MEDS ORDERED: NORMAL SALINE 1000 ML 1,000 ML IV ONE (18:49)
[2017-03-25 18:51] LABS: TROPONIN I 0.061 ng/mL
--- NOTE | 2017-03-25 19:00 | ER Document Report ---
ED General - General Chief Complaint: Medical Complaint Stated Complaint: IMMOBILITY Time Seen by Provider: 03/25/17 15:53 Mode of Arrival: Wheelchair Information source: Patient, Relative TRAVEL OUTSIDE OF THE [place] IN LAST 30 DAYS: No - HPI Notes: 81-year-old lady with multiple medical problems including recurrent acute cystitis, gout, arthritis, heart failure, peripheral vascular disease who was brought in by family for evaluation of failure to thrive at home. According to family patient is unable to get out of the bed anymore, she constantly is lying in her feces as well as urine. Patient has a coding specialist home health that comes 2 times a week on Friday and to help her with her daily activities. Family reported that they are unable to take care of her as well anymore, unable to lift her out of the bed as well as provide general care for her. They spoke with her primary care doctor, Dr. Guillory and they recommended to come to the hospital for further evaluation. No recent trauma or fall. - Related Data Allergies/Adverse Reactions: Penicillins Allergy (Verified 03/25/17 14:29) Past Medical History - General Information source: Patient - Social History Smoking Status: Never Smoker Chew tobacco use (# tins/day): No Frequency of alcohol use: None Drug Abuse: None Family History: Reviewed & Not Pertinent Patient has suicidal ideation: No Patient has homicidal ideation: No - Past Medical History Cardiac Medical History: Reports: Hx Atrial Fibrillation - intermittent, Hx Congestive Heart Failure, Hx Hypercholesterolemia, Hx Hypertension Pulmonary Medical History: Reports: Hx Asthma, Hx COPD Endocrine Medical History: Reports: Hx Diabetes Mellitus Type 2 Renal/ Medical History: Denies: Hx Peritoneal Dialysis GI Medical History: Reports: Hx Gastroesophageal Reflux Disease Musculoskeltal Medical History: Reports Hx Arthritis - 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 Past Surgical History: Reports: Hx Cardiac Surgery - implanted recorder, Hx Cholecystectomy, Hx Hysterectomy - Immunizations Hx Diphtheria, Pertussis, Tetanus Vaccination: Yes Hx Pneumococcal Vaccination: 03/17/12 Review of Systems - Review of Systems Notes: REVIEW OF SYSTEMS: CONSTITUTIONAL: -fevers, -chills, + generalized fatigue, + difficulty walking EENT: -eye pain, -difficulty swallowing, -nasal congestion CARDIOVASCULAR: -chest pain, -syncope. RESPIRATORY: -cough, -SOB GASTROINTESTINAL: -abdominal pain, -nausea, -vomiting, -diarrhea, + fecal incontinence GENITOURINARY: -dysuria, -hematuria, + incontinence MUSCULOSKELETAL: -back pain, -neck pain SKIN: -rash or skin lesions. HEMATOLOGIC: -easy bruising or bleeding. LYMPHATIC: -swollen, enlarged glands. NEUROLOGICAL: -altered mental status or loss of consciousness, -headache, - neurologic symptoms, + forgetfulness PSYCHIATRIC: -anxiety, -depression. ALL OTHER SYSTEMS REVIEWED AND NEGATIVE. Physical Exam - Vital signs Vitals: Temp Pulse Resp BP Pulse Ox 98.3 F 103 H 20 124/62 98 03/25/17 14:37 03/25/17 14:37 03/25/17 14:37 03/25/17 14:37 03/25/17 14:37 - Notes Notes: Reviewed vital signs and nursing note as charted by RN. CONSTITUTIONAL: Alert, responds to questions, mild dementia HEAD: Normocephalic; atraumatic EYES: PERRL; Conjunctivae clear, sclerae non-icteric ENT: normal nose; no rhinorrhea; serene dry st mucous membranes; pharynx without lesions noted NECK: Supple without meningismus; non-tender; no cervical lymphadenopathy, no masses CARD: Tachycardia, irregular; no murmurs, no clicks, no rubs, no gallops; symmetric distal pulses RESP: Normal chest excursion without splinting or tachypnea; breath sounds clear and equal bilaterally ABD/GI: Normal bowel sounds; non-distended; soft, nontender BACK: The back appears normal and is non-tender to palpation EXT: Normal ROM in all joints; patient has bilateral chronic venous stasis with hyperkeratosis of skin SKIN: Normal color for age and race; warm; dry; good turgor; capillary refill < 2 seconds; no acute lesions noted NEURO: .Cranial nerves 3-12 intact. Motor strength 5/5 bilaterally. Sensation intact to touch bilaterally. No pronator drift PSYCH: Appropriate Course - Re-evaluation Re-evalutation: 03/25/17 18:58 81-year-old lady with failure to thrive at home It appears to be that family unable to provide care for her Differential diagnoses includes subdural hematoma, dehydration, electrolyte abnormalities, rhabdomyolysis, ACS, pneumonia We will obtain basic lab work including CBC, CMP, urinalysis, coags, EKG, chest x-ray CT head without contrast We will consult her primary care physician, Dr. Johnson for further recommendations given the patient has failure to thrive at home Reassessment 7 PM Patient has rhabdomyolysis today, will start her on IV fluids EKG with no ischemic changes, borderline troponin likely secondary to rhabdo 03/25/17 19:20 Reassessment 7:20 PM Discussed the case with Dr. Guillory, agree with admission for further management of acute rhabdomyolysis, dehydration as well as failure to thrive 03/25/17 20:39 Patient has acute cystitis, will treat with levofloxacin given the patient is allergic to penicillins - Vital Signs Vital signs: Temp Pulse Resp BP Pulse Ox 98.3 F 103 H 20 124/62 98 03/25/17 14:37 03/25/17 14:37 03/25/17 14:37 03/25/17 14:37 03/25/17 14:37 - Laboratory Result Diagrams: 03/25/17 17:56 03/25/17 17:56 Laboratory results interpreted by me: 03/25/17 03/25/17 03/25/17 17:56 17:56 19:16 MCHC 31.9 L RDW 15.6 H Chloride 94 L Carbon Dioxide 32 H BUN 25 H Direct Bilirubin 0.5 H AST 53 H Creatine Kinase 1025 H Total Protein 6.0 L Albumin 3.4 L Urine Protein 30 H Urine Blood MODERATE H Urine Urobilinogen 4.0 H Ur Leukocyte Esterase MODERATE H - Diagnostic Test Radiology reviewed: Image reviewed Radiology results interpreted by me: 03/25/17 20:42 Chest x-ray with no acute pneumonia or acute cardiovascular process CT scan with no acute intracranial injuries or subdural hematoma, no evidence of stroke - EKG Interpretation by De EKG shows normal: Sinus rhythm Rate: Tachycardia Rhythm: NSR - Irregular rate, left axis deviation Norman/QRS: Left axis deviation Voltage: Increased voltage - Patient has now irregular rhythm compared to her prior electrode cardiogram Discharge - Discharge Clinical Impression: Rhabdomyolysis, Failure to thrive in adult, Dehydration, Impaired ambulation, Acute cystitis with hematuria Condition: Stable Disposition: ADMITTED INPATIENT Admitting Provider: Kahlil Unit Admitted: Medical Floor
[2017-03-25 19:38] LABS: APPEARANCE,URINE CLOUDY; BILIRUBIN,URINE NEGATIVE (NEGATIVE); COLOR,URINE AMBER; GLUCOSE, URINE NEGATIVE (NEGATIVE); KETONES,URINE NEGATIVE (NEGATIVE); LEUKOCYTE ESTERASE,URINE MODERATE (NEGATIVE); NITRITE,URINE NEGATIVE (NEGATIVE); PROTEIN,URINE 30 mg/dL (NEGATIVE); URINE SPECIFIC GRAVITY 1.017
--- NOTE | 2017-03-25 20:15 | RADIOLOGY REPORT (SQ) ---
EXAM DESCRIPTION: CT HEAD WITHOUT COMPLETED DATE/TIME: 03/25/2017 8:01 pm REASON FOR STUDY: subdural, ams COMPARISON: 03/01/2015 TECHNIQUE: Axial images acquired through the brain without intravenous contrast. Images reviewed wi th bone, brain and subdural windows. Images stored on PACS. All CT scanners at this facility use dose modulation, iterative reconstruction, and/or weight based d osing when appropriate to reduce radiation dose to as low as reasonably achievable (ALARA). [facility]: Dose Right [facility]: CareDose [facility]: Dose Right [facility]: Teradose 4D [facility]: Smart Airtime RADIATION DOSE: CT Rad equipment meets quality standard of care and radiation dose reduction techniq ues were employed. CTDIvol: 29.1 mGy. DLP: 513 mGy-cm. mGy. LIMITATIONS: None. FINDINGS: VENTRICLES: Prominent. CEREBRUM: No masses. No hemorrhage. No midline shift. Areas of low density in the white matter mos t likely due to chronic micro-vascular ischemic change. No evidence for acute infarction. CEREBELLUM: No masses. No hemorrhage. No alteration of density. No evidence for acute infarction. EXTRAAXIAL SPACES: Mild age-related involutional change. No fluid collections. No masses. ORBITS AND GLOBE: No intra- or extraconal masses. Normal contour of globe without masses. CALVARIUM: No fracture. SOFT TISSUES: No mass or hematoma. OTHER: No other significant finding. IMPRESSION: MILD CHRONIC CHANGES OF ATROPHY AND MICROVASCULAR ISCHEMIA. NO ACUTE PROCESS. EVIDENCE OF ACUTE STROKE: NO. TECHNICAL DOCUMENTATION: JOB ID: [id number] Quality ID # [id number]: Final reports with documentation of one or more dose reduction techniques (e.g., Au tomated exposure control, adjustment of the mA and/or kV according to patient size, use of iterative reconstruction technique) 2010 [employer]- All Rights Reserved
--- NOTE | 2017-03-25 20:34 | EKG REPORT ---
SEVERITY:- ABNORMAL ECG - SINUS TACHYCARDIA WITH APCs LEFT AXIS DEVIATION LVH WITH SECONDARY REPOLARIZATION ABNORMALITY BORDERLINE PROLONGED QT INTERVAL : Confirmed by: Chin Rivers 25-Mar-2017 20:33:43
[2017-03-25] MEDS ORDERED: LEVOFLOXACIN 750 MG/D5W RTU 750 MG/150 ML RTUPB IV ONE (20:39)
[2017-03-25] MEDS ORDERED: MONTELUKAST SODIUM 10 MG TABLET PO ONE (23:00)
[2017-03-25] MEDS ORDERED: TRAMADOL HCL 50 MG TABLET PO PRN ×2 (23:00→23:45)
[2017-03-25] MEDS ORDERED: SOTALOL HCL 80 MG TABLET PO ONE (23:30)
[2017-03-25] MEDS ORDERED: ACETAMINOPHEN 325 MG TABLET PO PRN (23:34)
[2017-03-25] MEDS ORDERED: WARFARIN SODIUM 5 MG TABLET PO ONE (23:45)
[2017-03-26 00:08] LABS: INTERNATIONAL RATION (INR) 1.16; PROTHROMBIN TIME 15.6 SEC (11.4-15.4)
[2017-03-26] MEDS ORDERED: ZOLPIDEM TARTRATE 5 MG TABLET PO PRN (00:57)
[2017-03-26] MEDS: WARFARIN SODIUM 5 MG TABLET PO SCH (02:40)
[2017-03-26] MEDS: POTASSI CL 20 MEQ/NS 1L 1000 ML IV PRN ×2 (02:44→11:31)
[2017-03-26 05:13] LABS: ABSOLUTE BASOPHILS # (AUTO) 0.1 10^3/uL (0.0-0.2); ABSOLUTE EOSINOPHILS # (AUTO) 0.1 10^3/uL (0.0-0.6); ABSOLUTE LYMPHOCYTES (AUTO) 1.4 10^3/uL (0.5-4.7); ABSOLUTE MONOCYTES (AUTO) 0.9 10^3/uL (0.1-1.4); ABSOLUTE NEUT (AUTO) 4.9 10^3/uL (1.7-8.2); BASOPHILS % (AUTO) 0.9 % (0-2); EOSINOPHILS % (AUTO) 1.6 % (0-6); HEMATOCRIT 33.4 % (36.0-47.0); HEMOGLOBIN 10.8 g/dL (12.0-15.5); LYMPHOCYTES % (AUTO) 18.7 % (13-45); MEAN CORPUSCULAR HEMOGLOBIN 28.5 pg (27.0-33.4); MEAN CORPUSCULAR HGB CONC 32.2 g/dL (32.0-36.0); MEAN CORPUSCULAR VOLUME 89 fl (80-97); MONOCYTES % (AUTO) 11.9 % (3-13); PLATELET COUNT 224 10^3/uL (150-450); RED BLOOD COUNT 3.77 10^6/uL (3.72-5.28); RED CELL DISTRIBUTION WIDTH 15.3 % (11.5-14.0); SEGMENTED NEUTROPHILS % (AUTO) 66.9 % (42-78); TOTAL CELLS COUNTED % (AUTO) 100 %; WHITE BLOOD COUNT 7.3 10^3/uL (4.0-10.5)
[2017-03-26 05:36] LABS: ALANINE AMINOTRANSFERASE 34 U/L (9-52); ALBUMIN 2.7 g/dL (3.5-5.0); ALKALINE PHOSPHATASE 40 U/L (38-126); ANION GAP 6 (5-19); ASPARTATE AMINO TRANSFERASE 42 U/L (14-36); BILIRUBIN,DIRECT 0.4 mg/dL (0.0-0.4); BLOOD UREA NITROGEN 22 mg/dL (7-20); CALCIUM 8.8 mg/dL (8.4-10.2); CARBON DIOXIDE 31 mmol/L (22-30); CHLORIDE 99 mmol/L (98-107); CHOLESTEROL 128.05 mg/dL (0-200); GLUCOSE 91 mg/dL (75-110); POTASSIUM 3.7 mmol/L (3.6-5.0); SODIUM 136.2 mmol/L (137-145); TOTAL PROTEIN 5.2 g/dL (6.3-8.2); TRIGLYCERIDES 79 mg/dL (<150)
[2017-03-26 05:47] LABS: DIRECT LDL 82 mg/dL (<100)
[2017-03-26] MEDS: LANSOPRAZOLE 30 MG TAB.RAP.DR PO SCH (08:09)
[2017-03-26] MEDS: PREDNISONE 5 MG TABLET PO SCH (10:43)
[2017-03-26] MEDS: LOSARTAN POTASSIUM 50 MG TABLET PO SCH (10:43)
[2017-03-26] MEDS: FUROSEMIDE 20 MG TABLET PO SCH (10:44)
[2017-03-26] MEDS: CHOLECALCIFEROL (D3) 1,000 UNIT TABLET PO SCH (10:44)
[2017-03-26] MEDS: SOTALOL HCL 80 MG TABLET PO SCH ×2 (10:44→22:56)
[2017-03-26] MEDS: FOLIC ACID 1 MG TABLET PO SCH (10:45)
[2017-03-26] MEDS: AMLODIPINE BESYLATE 5 MG TABLET PO SCH (10:45)
[2017-03-26] MEDS: TIOTROPIUM BROMIDE DPI 5 CAP/KIT (18 MCG/CAP) IH SCH (10:46)
--- NOTE | 2017-03-26 14:40 | PDOC H&P ---
History of Present Illness Admission Date/PCP: 03/25/17 19:47 Patient complains of: Inabililty to take care of self and get out of bed due to pain and weakness of both legs and failure to thrive. History of Present Illness: MAEGAN NARAYAN is a 81 year old female with hx of HTN/Hyperlipidemia/COPD/ Asthma/A-fib/Rheumatoid arthritis/GERD/SOBEIDA on CPAP/Gout/Rhinitis/Vitamin D def/ Chronic venous insufficiency of legs/Recurrent syncope s.p implantable recorder , who has been having worsening mobility issues in the past couple of weeks due to juan pablo. weakness and painful legs to the extent that she could no longer get out bed and take care of herself and subsequent failure to thrive. She was seen at ER on 03/21/2016 and her CK was high- due to Simvastatin, which was promptly discontinued. She was sent home after getting IV fluids at ER. However , pt continued to have mobility issues and her family could no longer take care of her and she was brought to ER for evaluation and possible SNF placement. Past Medical History Cardiac Medical History: Reports: Atrial Fibrillation - intermittent, Congestive Heart Failure, Hyperlipidema, Hypertension Pulmonary Medical History: Reports: Asthma, Chronic Obstructive Pulmonary Disease (COPD) Endocrine Medical History: Reports: Diabetes Mellitus Type 2 GI Medical History: Reports: Gastroesophageal Reflux Disease Musculoskeltal Medical History: Reports: Arthritis - 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 Psychiatric Medical History: Denies: Depression Past Surgical History Past Surgical History: Reports: Cholecystectomy, Hysterectomy Social History Smoking Status: Never Smoker Frequency of Alcohol Use: None Hx Recreational Drug Use: No Drugs: None Hx Prescription Drug Abuse: No Family History Family History: Reviewed & Not Pertinent Parental Family History Reviewed: Yes Children Family History Reviewed: Yes Sibling(s) Family History Reviewed.: Yes Medication/Allergy Home Medications: Allopurinol [Zyloprim 100 mg Tablet] 100 mg PO DAILY 03/25/17 Amlodipine Besylate [Norvasc 5 mg Tablet] 5 mg PO DAILY 03/25/17 Cholecalciferol (Vitamin D3) [Vitamin D3 2000 unit Tablet] 2,000 units PO DAILY 03/25/17 Folic Acid [Folvite 1 mg Tablet] 1 mg PO DAILY 03/25/17 Furosemide [Lasix 20 mg Tablet] 20 mg PO DAILY 03/25/17 Lansoprazole [Prevacid] 30 mg PO DAILY 03/25/17 Losartan Potassium [Cozaar 100 mg Tablet] 100 mg PO DAILY 03/25/17 Methotrexate Sodium [Methotrexate] 2.5 mg PO FR@1000 03/25/17 Montelukast Sodium [Singulair 10 mg Tablet] 10 mg PO QPM 03/25/17 Prednisone 2.5 mg PO DAILY 03/25/17 Sotalol HCl [Sotalol] 40 mg PO BID 03/25/17 Tramadol HCl/Acetaminophen [Ultracet 37.5 mg/325 mg Tablet] 1 tab PO Q8HP PRN Warfarin Sodium [Coumadin 5 mg Tablet] 5 mg PO DAILY 03/25/17 Allergies/Adverse Reactions: Penicillins Allergy (Verified 03/25/17 14:29) Review of Systems All systems: as per PMH Constitutional: PRESENT: as per HPI, weakness Eyes: PRESENT: as per HPI Ears: PRESENT: as per HPI Nose, Mouth, and Throat: PRESENT: as per HPI Breasts: PRESENT: as per HPI Cardiovascular: PRESENT: as per HPI Respiratory: PRESENT: as per HPI Gastrointestinal: PRESENT: as per HPI Genitourinary: PRESENT: dysuria Musculoskeletal: PRESENT: muscle weakness Integumentary: PRESENT: as per HPI Neurological: PRESENT: as per HPI, weakness Psychiatric: PRESENT: as per HPI Endocrine: PRESENT: as per HPI Hematologic/Lymphatic: PRESENT: as per HPI Physical Exam Vital Signs: Temp Pulse Resp BP Pulse Ox 99.5 F 103 H 27 H 131/72 H 100 03/26/17 01:00 03/25/17 14:37 03/26/17 12:00 03/26/17 11:00 03/26/17 11:01 Intake & Output 03/25/17 03/26/17 03/27/17 06:59 06:59 06:59 Weight 95.4 kg General appearance: PRESENT: no acute distress, cooperative, well-developed, well-nourished Head exam: PRESENT: atraumatic, normocephalic Eye exam: PRESENT: EOMI, PERRLA Ear exam: PRESENT: normal external ear exam, TM's normal bilaterally Mouth exam: PRESENT: moist, neck supple, tongue midline Neck exam: PRESENT: full ROM Respiratory exam: PRESENT: clear to auscultation juan pablo, symmetrical Cardiovascular exam: PRESENT: +S1, +S2 Pulses: PRESENT: +1 pedal pulses bilateral GI/Abdominal exam: PRESENT: normal bowel sounds, soft Rectal exam: PRESENT: deferred Additional comments: Bed bound due to mobility difficulties. Neurological exam: PRESENT: alert, awake, oriented to person, oriented to place , oriented to time Psychiatric exam: PRESENT: normal mood Results Laboratory Results: 03/26/17 04:45 03/26/17 04:45 03/26/17 03/26/17 03/26/17 04:45 04:45 04:45 WBC 7.3 RBC 3.77 Hgb 10.8 L Hct 33.4 L MCV 89 MCH 28.5 MCHC 32.2 RDW 15.3 H Plt Count 224 Seg Neutrophils % 66.9 Lymphocytes % 18.7 Monocytes % 11.9 Eosinophils % 1.6 Basophils % 0.9 Absolute Neutrophils 4.9 Absolute Lymphocytes 1.4 Absolute Monocytes 0.9 Absolute Eosinophils 0.1 Absolute Basophils 0.1 Sodium 136.2 L Potassium 3.7 Chloride 99 Carbon Dioxide 31 H Anion Gap 6 BUN 22 H Creatinine 0.76 Est GFR ( Amer) > 60 Est GFR (Non-Af Amer) > 60 Glucose 91 Calcium 8.8 Total Bilirubin 1.0 AST 42 H ALT 34 Alkaline Phosphatase 40 Total Protein 5.2 L Albumin 2.7 L Triglycerides 79 Cholesterol 128.05 LDL Cholesterol Direct 82 VLDL Cholesterol 16.0 HDL Cholesterol 31 L TSH 1.35 03/26/17 04:45 Creatine Kinase 731 H Impressions: Chest X-Ray 03/25/17 16:02 IMPRESSION: NO ACUTE RADIOGRAPHIC FINDING IN THE CHEST. Head CT 03/25/17 18:49 IMPRESSION: MILD CHRONIC CHANGES OF ATROPHY AND MICROVASCULAR ISCHEMIA. NO ACUTE PROCESS. EVIDENCE OF ACUTE STROKE: NO. Assessment & Plan - Diagnosis (1) Rhabdomyolysis Qualifiers: Rhabdomyolysis type: non-traumatic Qualified Code(s): M62.82 - Rhabdomyolysis Is this a current diagnosis for this admission?: Yes Plan: Ct with IV fluids normal saline with 20 MEQ KCL at 125 cc/hr; Monitor CK, chemistries daily. (2) Urinary tract infection Qualifiers: Urinary tract infection type: site unspecified Is this a current diagnosis for this admission?: Yes Plan: Ct with Levaquin 500 mg daily IV; Tylenol 650 mg q6h prn po; F/u Urine and blood cultures. (3) Hypertension Qualifiers: Hypertension type: essential hypertension Qualified Code(s): I10 - Essential (primary) hypertension Is this a current diagnosis for this admission?: Yes Plan: Ct with Amlodipine 5 mg qd po; 2 g sodium diet. (4) Hyperlipidemia Qualifiers: Hyperlipidemia type: mixed hyperlipidemia Qualified Code(s): E78.2 - Mixed hyperlipidemia Is this a current diagnosis for this admission?: Yes Plan: CT with 200 mg cholesterol diet; hold Simvastatin due to elevated CK. (5) COPD (chronic obstructive pulmonary disease) Qualifiers: COPD type: unspecified COPD Qualified Code(s): J44.9 - Chronic obstructive pulmonary disease, unspecified Is this a current diagnosis for this admission?: Yes Plan: CT with Spiriva 18 g daily; ProAir HFA- 2 puffs q6h prn. (6) Atrial fibrillation Qualifiers: Atrial fibrillation type: paroxysmal Qualified Code(s): I48.0 - Paroxysmal atrial fibrillation Is this a current diagnosis for this admission?: Yes Plan: Ct with Warfarin 5 mg qd po; Sotatol 40 mg BID PO; F/u PT/INR daily. (7) Reflux esophagitis Is this a current diagnosis for this admission?: Yes Plan: Ct with Prevacid 30 mg qd pO. (8) Rheumatoid arthritis Qualifiers: Rheumatoid arthritis location: multiple sites Is this a current diagnosis for this admission?: Yes Plan: Ct with Methotrexate 7.5 mg qweekly po; Folic acid 1 mg qd po. (9) Gout Is this a current diagnosis for this admission?: Yes Plan: Ct with Allopurinol 100 mg qd po. (10) Obstructive sleep apnea Is this a current diagnosis for this admission?: Yes Plan: Ct with CPAP at night. (11) Osteoarthritis Is this a current diagnosis for this admission?: Yes Plan: Ct with Tylenol 650 mg q6h prn po. (12) Rhinitis, allergic Qualifiers: Allergic rhinitis seasonality: unspecified seasonality Is this a current diagnosis for this admission?: Yes Plan: Ct with Claritin 10 mg qd po; Singulair 10 mg qd po. (13) Failure to thrive in adult Is this a current diagnosis for this admission?: Yes Plan: F/u PT/OT consult and materials planner for SNF placement. (14) DVT prophylaxis Is this a current diagnosis for this admission?: Yes Plan: Ct with warfarin and SCD. - Time Critical Time spent with patient: 35 or more minutes Medications reviewed and adjusted accordingly: Yes Anticipated discharge: SNF Within: within 72 hours - Inpatient Certification Medical Necessity: Failure to Improve With Outpatient Therapy, Significant Comorbidiites Make Outpatient Treatment Too Risky, Need Close Monitoring Due to Risk of Patient Decompensation, Need For IV Fluids, Need For Continuous Telemetry Monitoring, Need for IV Antibiotics, Risk of Complication if Not Cared For in Hospital
[2017-03-26] MEDS ORDERED: LEVOFLOXACIN 500 MG/D5W RTU 500 MG/100 ML RTUPB IV SCH (15:00)
[2017-03-26 15:03] LABS: INTERNATIONAL RATION (INR) 1.17; PROTHROMBIN TIME 15.7 SEC (11.4-15.4)
[2017-03-26] MEDS: ALLOPURINOL 100 MG TABLET PO SCH (15:52)
[2017-03-26] MEDS: MONTELUKAST SODIUM 10 MG TABLET PO SCH (22:08)
[2017-03-26] MEDS ORDERED: SOTALOL HCL 80 MG TABLET ONE (22:34)
[2017-03-27 05:06] LABS: ALANINE AMINOTRANSFERASE 31 U/L (9-52); ALBUMIN 2.7 g/dL (3.5-5.0); ALKALINE PHOSPHATASE 38 U/L (38-126); ANION GAP 5 (5-19); ASPARTATE AMINO TRANSFERASE 34 U/L (14-36); BILIRUBIN,DIRECT 0.3 mg/dL (0.0-0.4); BILIRUBIN,TOTAL 0.6 mg/dL (0.2-1.3); BLOOD UREA NITROGEN 22 mg/dL (7-20); CALCIUM 8.5 mg/dL (8.4-10.2); CARBON DIOXIDE 33 mmol/L (22-30); CHLORIDE 101 mmol/L (98-107); CHOLESTEROL 116.04 mg/dL (0-200); CREATINE KINASE 398 U/L (30-135); GLUCOSE 105 mg/dL (75-110); POTASSIUM 4.2 mmol/L (3.6-5.0); TOTAL PROTEIN 5.1 g/dL (6.3-8.2); TRIGLYCERIDES 57 mg/dL (<150)
[2017-03-27 05:17] LABS: DIRECT LDL 78 mg/dL (<100)
[2017-03-27 05:21] LABS: HEMATOCRIT 30.3 % (36.0-47.0); HEMOGLOBIN 9.8 g/dL (12.0-15.5); MEAN CORPUSCULAR HEMOGLOBIN 28.8 pg (27.0-33.4); MEAN CORPUSCULAR HGB CONC 32.3 g/dL (32.0-36.0); MEAN CORPUSCULAR VOLUME 89 fl (80-97); PLATELET COUNT 179 10^3/uL (150-450); RED CELL DISTRIBUTION WIDTH 15.6 % (11.5-14.0); WHITE BLOOD COUNT 6.2 10^3/uL (4.0-10.5)
[2017-03-27] MEDS: LANSOPRAZOLE 30 MG TAB.RAP.DR PO SCH (05:52)
[2017-03-27 06:19] LABS: ABSOLUTE LYMPHOCYTES# (MANUAL) 1.5 10^3/uL (0.5-4.7); ABSOLUTE MONOCYTES # (MANUAL) 0.7 10^3/uL (0.1-1.4); ABSOLUTE NEUTROPHILS# (MANUAL) 3.9 10^3/uL (1.7-8.2); BASOPHILS % (MANUAL) 0 % (0-2); EOSINOPHILS % (MANUAL) 1 % (0-6); LYMPHOCYTES % (MANUAL) 24 % (13-45); MONOCYTES % (MANUAL) 12 % (3-13); SEGMENTED NEUTROPHILS % (MAN) 63 % (42-78); TOTAL CELLS COUNTED 100
[2017-03-27 06:21] LABS: ANISOCYTOSIS SLIGHT; OVALOCYTES SLIGHT; PLATELET COMMENT ADEQUATE; POIKILOCYTOSIS SLIGHT; SCHISTOCYTES SLIGHT; TEAR DROP CELLS SLIGHT; TOXIC GRANULATION SLIGHT; TOXIC VACUOLATION PRESENT
[2017-03-27] MEDS: CHOLECALCIFEROL (D3) 1,000 UNIT TABLET PO SCH (09:22)
[2017-03-27] MEDS: AMLODIPINE BESYLATE 5 MG TABLET PO SCH (09:23)
[2017-03-27] MEDS: FOLIC ACID 1 MG TABLET PO SCH (09:23)
[2017-03-27] MEDS: FUROSEMIDE 20 MG TABLET PO SCH (09:23)
[2017-03-27] MEDS: LOSARTAN POTASSIUM 50 MG TABLET PO SCH (09:24)
[2017-03-27] MEDS: TIOTROPIUM BROMIDE DPI 5 CAP/KIT (18 MCG/CAP) IH SCH (09:24)
[2017-03-27] MEDS: ALLOPURINOL 100 MG TABLET PO SCH (09:24)
[2017-03-27] MEDS: POTASSI CL 20 MEQ/NS 1L 1000 ML IV PRN ×2 (11:02→20:47)
[2017-03-27] MEDS: PREDNISONE 5 MG TABLET PO SCH (11:36)
[2017-03-27] MEDS: SOTALOL HCL 80 MG TABLET PO SCH ×2 (11:37→21:59)
--- NOTE | 2017-03-27 12:33 | PDOC PROGRESS REPORT ---
Subjective Progress Note for:: 04/03/17 Subjective:: She is feeling better. Both patient and her daughter denied ever asking for SNF placement. She insisted she wants to go home and that she has appointment with her poultry pinner,Dr Jagdish Mohamud in [place] on 04/03/2017 to change her implantable recorder. PT and OT reports reviewed. Labs. reviewed and antibiotics changed based on urine culture report. F/u farm planner. Reason For Visit: RHABDOMYOLYSIS WITH DEHYDRATION,FAILURE TO THRIVE Physical Exam Vital Signs: Temp Pulse Resp BP Pulse Ox 98.3 F 70 19 112/59 L 98 03/27/17 11:16 03/27/17 11:16 03/27/17 11:16 03/27/17 11:16 03/27/17 11:16 Intake & Output 03/26/17 03/27/17 03/28/17 06:59 06:59 06:59 Intake Total 766 Balance 766 Weight 95.4 kg 88.2 kg General appearance: PRESENT: no acute distress, cooperative, well-developed, well-nourished Head exam: PRESENT: atraumatic, normocephalic Eye exam: PRESENT: EOMI, PERRLA Ear exam: PRESENT: normal external ear exam Mouth exam: PRESENT: moist, neck supple Neck exam: PRESENT: full ROM Respiratory exam: PRESENT: clear to auscultation javi, symmetrical Cardiovascular exam: PRESENT: +S1, +S2 Pulses: PRESENT: +1 pedal pulses bilateral GI/Abdominal exam: PRESENT: normal bowel sounds, soft Rectal exam: PRESENT: deferred Additional comments: Javi. dark, hyperpigmented legs due to chronic venous insufficiency; not able to ambulate due to mobility difficulty. Neurological exam: PRESENT: alert, awake, oriented to person, oriented to place , oriented to time Psychiatric exam: PRESENT: normal mood Results Laboratory Results: 03/27/17 04:35 03/27/17 04:35 03/27/17 03/27/17 03/27/17 04:35 04:35 04:35 WBC 6.2 RBC 3.40 L Hgb 9.8 L Hct 30.3 L MCV 89 MCH 28.8 MCHC 32.3 RDW 15.6 H Plt Count 179 Seg Neutrophils % Not Reportable Lymphocytes % Not Reportable Monocytes % Not Reportable Eosinophils % Not Reportable Basophils % Not Reportable Absolute Neutrophils Not Reportable Absolute Lymphocytes Not Reportable Absolute Monocytes Not Reportable Absolute Eosinophils Not Reportable Absolute Basophils Not Reportable Sodium 139.0 Potassium 4.2 Chloride 101 Carbon Dioxide 33 H Anion Gap 5 BUN 22 H Creatinine 0.82 Est GFR ( Amer) > 60 Est GFR (Non-Af Amer) > 60 Glucose 105 Calcium 8.5 Total Bilirubin 0.6 AST 34 ALT 31 Alkaline Phosphatase 38 Total Protein 5.1 L Albumin 2.7 L Triglycerides 57 Cholesterol 116.04 LDL Cholesterol Direct 78 VLDL Cholesterol 11.0 HDL Cholesterol 28 L TSH 1.38 03/26/17 03/27/17 04:45 04:35 Creatine Kinase 731 H 398 H Impressions: Chest X-Ray 03/25/17 16:02 IMPRESSION: NO ACUTE RADIOGRAPHIC FINDING IN THE CHEST. Head CT 03/25/17 18:49 IMPRESSION: MILD CHRONIC CHANGES OF ATROPHY AND MICROVASCULAR ISCHEMIA. NO ACUTE PROCESS. EVIDENCE OF ACUTE STROKE: NO. Assessment & Plan - Diagnosis (1) Rhabdomyolysis Qualifiers: Rhabdomyolysis type: non-traumatic Qualified Code(s): M62.82 - Rhabdomyolysis Is this a current diagnosis for this admission?: Yes Plan: Ct with IV fluids normal saline with 20 MEQ KCL at 125 cc/hr; Monitor CK, chemistries daily. (2) Urinary tract infection Qualifiers: Urinary tract infection type: site unspecified Is this a current diagnosis for this admission?: Yes Plan: Change to Rocephin 1 G daily IV; Tylenol 650 mg q6h prn po. (3) Hypertension Qualifiers: Hypertension type: essential hypertension Qualified Code(s): I10 - Essential (primary) hypertension Is this a current diagnosis for this admission?: Yes Plan: Ct with Amlodipine 5 mg qd po; Losartan 100 mg qd po; 2 g sodium diet. (4) Hyperlipidemia Qualifiers: Hyperlipidemia type: mixed hyperlipidemia Qualified Code(s): E78.2 - Mixed hyperlipidemia Is this a current diagnosis for this admission?: Yes Plan: CT with 200 mg cholesterol diet; hold Simvastatin due to elevated CK. (5) COPD (chronic obstructive pulmonary disease) Qualifiers: COPD type: unspecified COPD Qualified Code(s): J44.9 - Chronic obstructive pulmonary disease, unspecified Is this a current diagnosis for this admission?: Yes Plan: CT with Spiriva 18 g daily; ProAir HFA- 2 puffs q6h prn. (6) Atrial fibrillation Qualifiers: Atrial fibrillation type: paroxysmal Qualified Code(s): I48.0 - Paroxysmal atrial fibrillation Is this a current diagnosis for this admission?: Yes Plan: Ct with Warfarin 5 mg qd po; Sotatol 40 mg BID PO; F/u PT/INR daily. (7) Reflux esophagitis Is this a current diagnosis for this admission?: Yes Plan: Ct with Prevacid 30 mg qd pO. (8) Rheumatoid arthritis Qualifiers: Rheumatoid arthritis location: multiple sites Is this a current diagnosis for this admission?: Yes Plan: Ct with Methotrexate 7.5 mg qweekly po; Prednisone 2.5 mg qd po; Folic acid 1 mg qd po. (9) Chronic venous stasis dermatitis of both lower extremities Is this a current diagnosis for this admission?: Yes Plan: Ct with Lasix 20 mg qd po. (10) Gout Is this a current diagnosis for this admission?: Yes Plan: Ct with Allopurinol 100 mg qd po. (11) Obstructive sleep apnea Is this a current diagnosis for this admission?: Yes Plan: Ct with CPAP at night. (12) Osteoarthritis Is this a current diagnosis for this admission?: Yes Plan: Ct with Tylenol 650 mg q6h prn po.; Tramadol 50 mg TID po prn. (13) Rhinitis, allergic Qualifiers: Allergic rhinitis seasonality: unspecified seasonality Is this a current diagnosis for this admission?: Yes Plan: Ct with Claritin 10 mg qd po; Singulair 10 mg qd po. (14) Failure to thrive in adult Is this a current diagnosis for this admission?: Yes Plan: F/u PT/OT consult and farm planner for SNF placement. (15) Vitamin D deficiency Is this a current diagnosis for this admission?: Yes Plan: Ct with Vitamin D 2000iu qd po (16) DVT prophylaxis Is this a current diagnosis for this admission?: Yes Plan: Ct with warfarin and SCD.
[2017-03-27] MEDS ORDERED: CEFTRIAXONE 1 GM/D5W RTU 1 GM/50 ML RTUPB IV SCH (13:00)
[2017-03-27] MEDS: CEFTRIAXONE SODIUM 1,000 MG in DEXTROSE 5%-WATER 50 ML IV SCH (14:05)
[2017-03-27 14:36] LABS: INTERNATIONAL RATION (INR) 1.12; PROTHROMBIN TIME 15.2 SEC (11.4-15.4)
[2017-03-27] MEDS: WARFARIN SODIUM 5 MG TABLET PO SCH (22:00)
[2017-03-27] MEDS: MONTELUKAST SODIUM 10 MG TABLET PO SCH (22:00)
--- NOTE | 2017-03-27 23:58 | Physician Advisory Note ---
Physician Advisor ProgressNote .: Pursuant to the plan for [facility], I have reviewed the medical record for this patient. Physician Advisor Statement: Please clarify what appears to be a discrepancy in progress note documentation: pt/family don't want SNF; plan includes "f/u ... for SNF placement". Thanks for your help with improving documentation accuracy! CK
[2017-03-28] MEDS: POTASSI CL 20 MEQ/NS 1L 1000 ML IV PRN (04:36)
[2017-03-28] MEDS: LANSOPRAZOLE 30 MG TAB.RAP.DR PO SCH (05:36)
[2017-03-28 06:45] LABS: ALANINE AMINOTRANSFERASE 28 U/L (9-52); ALBUMIN 2.5 g/dL (3.5-5.0); ALKALINE PHOSPHATASE 37 U/L (38-126); ASPARTATE AMINO TRANSFERASE 26 U/L (14-36); BILIRUBIN,DIRECT 0.2 mg/dL (0.0-0.4); BILIRUBIN,TOTAL 0.4 mg/dL (0.2-1.3); BLOOD UREA NITROGEN 20 mg/dL (7-20); CALCIUM 8.5 mg/dL (8.4-10.2); CARBON DIOXIDE 29 mmol/L (22-30); CHLORIDE 106 mmol/L (98-107); CREATINE KINASE 196 U/L (30-135); GLUCOSE 85 mg/dL (75-110); POTASSIUM 4.8 mmol/L (3.6-5.0); SODIUM 138.9 mmol/L (137-145)
[2017-03-28 06:47] LABS: ABSOLUTE BASOPHILS # (AUTO) 0.1 10^3/uL (0.0-0.2); ABSOLUTE EOSINOPHILS # (AUTO) 0.1 10^3/uL (0.0-0.6); ABSOLUTE LYMPHOCYTES (AUTO) 2.1 10^3/uL (0.5-4.7); ABSOLUTE MONOCYTES (AUTO) 0.8 10^3/uL (0.1-1.4); ABSOLUTE NEUT (AUTO) 3.3 10^3/uL (1.7-8.2); BASOPHILS % (AUTO) 1.2 % (0-2); EOSINOPHILS % (AUTO) 1.6 % (0-6); HEMATOCRIT 29.9 % (36.0-47.0); HEMOGLOBIN 9.7 g/dL (12.0-15.5); LYMPHOCYTES % (AUTO) 33.1 % (13-45); MEAN CORPUSCULAR HEMOGLOBIN 29.1 pg (27.0-33.4); MEAN CORPUSCULAR HGB CONC 32.4 g/dL (32.0-36.0); MEAN CORPUSCULAR VOLUME 90 fl (80-97); MONOCYTES % (AUTO) 12.1 % (3-13); PLATELET COUNT 146 10^3/uL (150-450); RED BLOOD COUNT 3.33 10^6/uL (3.72-5.28); RED CELL DISTRIBUTION WIDTH 15.7 % (11.5-14.0); TOTAL CELLS COUNTED % (AUTO) 100 %; WHITE BLOOD COUNT 6.3 10^3/uL (4.0-10.5)
[2017-03-28 06:49] LABS: ANION GAP 4 (5-19)
[2017-03-28] MEDS ORDERED: METHOTREXATE SODIUM 2.5 MG TABLET PO SCH ×2 (10:00)
[2017-03-28] MEDS: LOSARTAN POTASSIUM 50 MG TABLET PO SCH (10:37)
[2017-03-28] MEDS: ALLOPURINOL 100 MG TABLET PO SCH (10:37)
[2017-03-28] MEDS: TIOTROPIUM BROMIDE DPI 5 CAP/KIT (18 MCG/CAP) IH SCH (10:39)
[2017-03-28] MEDS: AMLODIPINE BESYLATE 5 MG TABLET PO SCH (10:39)
[2017-03-28] MEDS: FUROSEMIDE 20 MG TABLET PO SCH (10:39)
[2017-03-28] MEDS: FOLIC ACID 1 MG TABLET PO SCH (10:39)
[2017-03-28] MEDS: CHOLECALCIFEROL (D3) 1,000 UNIT TABLET PO SCH (10:39)
[2017-03-28] MEDS: PREDNISONE 5 MG TABLET PO SCH (10:40)
[2017-03-28] MEDS: SOTALOL HCL 80 MG TABLET PO SCH ×2 (10:40→21:26)
[2017-03-28] MEDS: CEFTRIAXONE SODIUM 1,000 MG in DEXTROSE 5%-WATER 50 ML IV SCH (14:16)
[2017-03-28 15:26] LABS: INTERNATIONAL RATION (INR) 1.07; PROTHROMBIN TIME 14.7 SEC (11.4-15.4)
--- NOTE | 2017-03-28 15:27 | PDOC PROGRESS REPORT ---
Subjective Progress Note for:: 03/28/17 Subjective:: Pt is feeling much better today and is working with PT/OT. Both pt and daughter now agrees for SNF placement if she is not strong enough to go home. We will change her IV fluids to plan normal saline since her potassium is 4.8 today. Awaiting SNF placement to [facility] or [facility]. Reason For Visit: RHABDOMYOLYSIS WITH DEHYDRATION,FAILURE TO THRIVE Physical Exam Vital Signs: Temp Pulse Resp BP Pulse Ox 98.8 F 65 19 125/50 L 95 03/28/17 11:23 03/28/17 11:23 03/28/17 11:23 03/28/17 11:23 03/28/17 11:23 Intake & Output 03/27/17 03/28/17 03/29/17 06:59 06:59 06:59 Intake Total 766 2091 Balance 766 2091 Weight 88.2 kg General appearance: PRESENT: no acute distress, cooperative, well-developed, well-nourished Head exam: PRESENT: atraumatic, normocephalic Eye exam: PRESENT: EOMI, PERRLA Ear exam: PRESENT: TM's normal bilaterally Mouth exam: PRESENT: moist, neck supple, tongue midline Neck exam: PRESENT: full ROM Respiratory exam: PRESENT: clear to auscultation juan pablo, symmetrical Cardiovascular exam: PRESENT: +S1, +S2 Pulses: PRESENT: +1 pedal pulses bilateral, +2 pedal pulses bilateral Vascular exam: PRESENT: normal capillary refill GI/Abdominal exam: PRESENT: normal bowel sounds, soft Rectal exam: PRESENT: deferred Neurological exam: PRESENT: alert, awake, oriented to person, oriented to place , oriented to time Psychiatric exam: PRESENT: normal mood Results Laboratory Results: 03/28/17 05:08 03/28/17 05:08 03/28/17 03/28/17 05:08 05:08 WBC 6.3 RBC 3.33 L Hgb 9.7 L Hct 29.9 L MCV 90 MCH 29.1 MCHC 32.4 RDW 15.7 H Plt Count 146 L Seg Neutrophils % 52.0 Lymphocytes % 33.1 Monocytes % 12.1 Eosinophils % 1.6 Basophils % 1.2 Absolute Neutrophils 3.3 Absolute Lymphocytes 2.1 Absolute Monocytes 0.8 Absolute Eosinophils 0.1 Absolute Basophils 0.1 Sodium 138.9 Potassium 4.8 Chloride 106 Carbon Dioxide 29 Anion Gap 4 L BUN 20 Creatinine 0.68 Est GFR ( Amer) > 60 Est GFR (Non-Af Amer) > 60 Glucose 85 Calcium 8.5 Total Bilirubin 0.4 AST 26 ALT 28 Alkaline Phosphatase 37 L Total Protein 5.0 L Albumin 2.5 L 03/26/17 03/27/17 03/28/17 04:45 04:35 05:08 Creatine Kinase 731 H 398 H 196 H Impressions: Chest X-Ray 03/25/17 16:02 IMPRESSION: NO ACUTE RADIOGRAPHIC FINDING IN THE CHEST. Head CT 03/25/17 18:49 IMPRESSION: MILD CHRONIC CHANGES OF ATROPHY AND MICROVASCULAR ISCHEMIA. NO ACUTE PROCESS. EVIDENCE OF ACUTE STROKE: NO. Assessment & Plan - Diagnosis (1) Rhabdomyolysis Qualifiers: Rhabdomyolysis type: non-traumatic Qualified Code(s): M62.82 - Rhabdomyolysis Is this a current diagnosis for this admission?: Yes Plan: Ct with IV fluids normal saline at 75 cc/hr; Monitor CK, chemistries daily. (2) Urinary tract infection Qualifiers: Urinary tract infection type: site unspecified Is this a current diagnosis for this admission?: Yes Plan: Change to Rocephin 1 G daily IV; Tylenol 650 mg q6h prn po. (3) Hypertension Qualifiers: Hypertension type: essential hypertension Qualified Code(s): I10 - Essential (primary) hypertension Is this a current diagnosis for this admission?: Yes Plan: Ct with Amlodipine 5 mg qd po; Losartan 100 mg qd po; 2 g sodium diet. (4) Hyperlipidemia Qualifiers: Hyperlipidemia type: mixed hyperlipidemia Qualified Code(s): E78.2 - Mixed hyperlipidemia Is this a current diagnosis for this admission?: Yes Plan: CT with 200 mg cholesterol diet; hold Simvastatin due to elevated CK. (5) COPD (chronic obstructive pulmonary disease) Qualifiers: COPD type: unspecified COPD Qualified Code(s): J44.9 - Chronic obstructive pulmonary disease, unspecified Is this a current diagnosis for this admission?: Yes Plan: CT with Spiriva 18 g daily; ProAir HFA- 2 puffs q6h prn. (6) Atrial fibrillation Qualifiers: Atrial fibrillation type: paroxysmal Qualified Code(s): I48.0 - Paroxysmal atrial fibrillation Is this a current diagnosis for this admission?: Yes Plan: Ct with Warfarin 5 mg qd po; Sotatol 40 mg BID PO; F/u PT/INR daily. (7) Reflux esophagitis Is this a current diagnosis for this admission?: Yes Plan: Ct with Prevacid 30 mg qd pO. (8) Rheumatoid arthritis Qualifiers: Rheumatoid arthritis location: multiple sites Is this a current diagnosis for this admission?: Yes Plan: Ct with Methotrexate 7.5 mg qweekly po; Prednisone 2.5 mg qd po; Folic acid 1 mg qd po. (9) Chronic venous stasis dermatitis of both lower extremities Is this a current diagnosis for this admission?: Yes Plan: Ct with Lasix 20 mg qd po. (10) Gout Is this a current diagnosis for this admission?: Yes Plan: Ct with Allopurinol 100 mg qd po. (11) Obstructive sleep apnea Is this a current diagnosis for this admission?: Yes Plan: Ct with CPAP at night. (12) Osteoarthritis Is this a current diagnosis for this admission?: Yes Plan: Ct with Tylenol 650 mg q6h prn po.; Tramadol 50 mg TID po prn. (13) Rhinitis, allergic Qualifiers: Allergic rhinitis seasonality: unspecified seasonality Is this a current diagnosis for this admission?: Yes Plan: Ct with Claritin 10 mg qd po; Singulair 10 mg qd po. (14) Failure to thrive in adult Is this a current diagnosis for this admission?: Yes Plan: F/u PT/OT consult and case planner for SNF placement. (15) Vitamin D deficiency Is this a current diagnosis for this admission?: Yes Plan: Ct with Vitamin D 2000iu qd po (16) DVT prophylaxis Is this a current diagnosis for this admission?: Yes Plan: Ct with warfarin and SCD.
[2017-03-28] MEDS: MONTELUKAST SODIUM 10 MG TABLET PO SCH (21:26)
[2017-03-28] MEDS: WARFARIN SODIUM 5 MG TABLET PO SCH (21:28)
[2017-03-29] MEDS: NORMAL SALINE 1000 ML 1,000 ML IV PRN (04:45)
[2017-03-29] MEDS: LANSOPRAZOLE 30 MG TAB.RAP.DR PO SCH (05:49)
[2017-03-29 07:12] LABS: ABSOLUTE BASOPHILS # (AUTO) 0.1 10^3/uL (0.0-0.2); ABSOLUTE EOSINOPHILS # (AUTO) 0.1 10^3/uL (0.0-0.6); ABSOLUTE LYMPHOCYTES (AUTO) 1.6 10^3/uL (0.5-4.7); ABSOLUTE MONOCYTES (AUTO) 0.7 10^3/uL (0.1-1.4); ABSOLUTE NEUT (AUTO) 3.1 10^3/uL (1.7-8.2); BASOPHILS % (AUTO) 1.4 % (0-2); EOSINOPHILS % (AUTO) 2.2 % (0-6); HEMATOCRIT 30.8 % (36.0-47.0); HEMOGLOBIN 10.1 g/dL (12.0-15.5); LYMPHOCYTES % (AUTO) 28.9 % (13-45); MEAN CORPUSCULAR HEMOGLOBIN 29.3 pg (27.0-33.4); MEAN CORPUSCULAR HGB CONC 32.8 g/dL (32.0-36.0); MEAN CORPUSCULAR VOLUME 89 fl (80-97); MONOCYTES % (AUTO) 12.3 % (3-13); PLATELET COUNT 200 10^3/uL (150-450); RED BLOOD COUNT 3.45 10^6/uL (3.72-5.28); RED CELL DISTRIBUTION WIDTH 15.7 % (11.5-14.0); SEGMENTED NEUTROPHILS % (AUTO) 55.2 % (42-78); TOTAL CELLS COUNTED % (AUTO) 100 %; WHITE BLOOD COUNT 5.6 10^3/uL (4.0-10.5)
[2017-03-29 07:38] LABS: ALANINE AMINOTRANSFERASE 32 U/L (9-52); ALBUMIN 2.8 g/dL (3.5-5.0); ALKALINE PHOSPHATASE 45 U/L (38-126); ANION GAP 6 (5-19); ASPARTATE AMINO TRANSFERASE 22 U/L (14-36); BILIRUBIN,DIRECT 0.1 mg/dL (0.0-0.4); BILIRUBIN,TOTAL 0.2 mg/dL (0.2-1.3); BLOOD UREA NITROGEN 15 mg/dL (7-20); CALCIUM 8.7 mg/dL (8.4-10.2); CARBON DIOXIDE 29 mmol/L (22-30); CHLORIDE 103 mmol/L (98-107); CREATINE KINASE 98 U/L (30-135); GLUCOSE 90 mg/dL (75-110); POTASSIUM 4.5 mmol/L (3.6-5.0); SODIUM 138.2 mmol/L (137-145); TOTAL PROTEIN 5.3 g/dL (6.3-8.2)
--- NOTE | 2017-03-29 11:03 | PDOC PROGRESS REPORT ---
Subjective Progress Note for:: 03/29/17 Subjective:: Denies any complaints Reason For Visit: RHABDOMYOLYSIS WITH DEHYDRATION,FAILURE TO THRIVE Physical Exam Vital Signs: Temp Pulse Resp BP Pulse Ox 98.1 F 64 16 151/58 H 96 03/29/17 08:10 03/29/17 08:10 03/29/17 08:10 03/29/17 08:10 03/29/17 08:10 Intake & Output 03/28/17 03/29/17 03/30/17 06:59 06:59 06:59 Intake Total 2090 2149 Balance 2090 2149 Weight 98.3 kg General appearance: PRESENT: no acute distress Eye exam: PRESENT: conjunctiva pink. ABSENT: scleral icterus Mouth exam: PRESENT: moist, tongue midline Neck exam: ABSENT: JVD Respiratory exam: PRESENT: clear to auscultation juan pablo. ABSENT: rales, rhonchi, wheezes GI/Abdominal exam: PRESENT: normal bowel sounds, soft. ABSENT: distended, guarding, mass, organolmegaly, rebound, tenderness Extremities exam: ABSENT: calf tenderness, clubbing, pedal edema Neurological exam: PRESENT: alert, awake, oriented to person, oriented to place , oriented to time, oriented to situation, CN II-XII grossly intact. ABSENT: motor sensory deficit Psychiatric exam: PRESENT: appropriate affect Skin exam: PRESENT: dry, intact, warm. ABSENT: cyanosis, rash Results Laboratory Results: 03/29/17 06:31 03/29/17 06:31 03/29/17 03/29/17 06:31 06:31 WBC 5.6 RBC 3.45 L Hgb 10.1 L Hct 30.8 L MCV 89 MCH 29.3 MCHC 32.8 RDW 15.7 H Plt Count 200 Seg Neutrophils % 55.2 Lymphocytes % 28.9 Monocytes % 12.3 Eosinophils % 2.2 Basophils % 1.4 Absolute Neutrophils 3.1 Absolute Lymphocytes 1.6 Absolute Monocytes 0.7 Absolute Eosinophils 0.1 Absolute Basophils 0.1 Sodium 138.2 Potassium 4.5 Chloride 103 Carbon Dioxide 29 Anion Gap 6 BUN 15 Creatinine 0.64 Est GFR ( Amer) > 60 Est GFR (Non-Af Amer) > 60 Glucose 90 Calcium 8.7 Total Bilirubin 0.2 AST 22 ALT 32 Alkaline Phosphatase 45 Total Protein 5.3 L Albumin 2.8 L 03/26/17 03/27/17 03/28/17 04:45 04:35 05:08 Creatine Kinase 731 H 398 H 196 H 03/29/17 06:31 Creatine Kinase 98 Impressions: Chest X-Ray 03/25/17 16:02 IMPRESSION: NO ACUTE RADIOGRAPHIC FINDING IN THE CHEST. Head CT 03/25/17 18:49 IMPRESSION: MILD CHRONIC CHANGES OF ATROPHY AND MICROVASCULAR ISCHEMIA. NO ACUTE PROCESS. EVIDENCE OF ACUTE STROKE: NO. Assessment & Plan - Diagnosis (1) Rhabdomyolysis Qualifiers: Rhabdomyolysis type: non-traumatic Qualified Code(s): M62.82 - Rhabdomyolysis Is this a current diagnosis for this admission?: Yes Plan: Patient has responded to IV fluids. (2) Urinary tract infection Qualifiers: Urinary tract infection type: site unspecified Is this a current diagnosis for this admission?: Yes Plan: Growing E. coli. It is sensitive to the Rocephin she is on. (3) Hypertension Qualifiers: Hypertension type: essential hypertension Qualified Code(s): I10 - Essential (primary) hypertension Is this a current diagnosis for this admission?: Yes Plan: Continue with Lasix, Norvasc and Cozaar. (4) Atrial fibrillation Qualifiers: Atrial fibrillation type: paroxysmal Qualified Code(s): I48.0 - Paroxysmal atrial fibrillation Is this a current diagnosis for this admission?: Yes Plan: Continue with sotalol and Coumadin. She is still subtherapeutic on her Coumadin. (5) Chronic venous stasis dermatitis of both lower extremities Is this a current diagnosis for this admission?: Yes (6) Hyperlipidemia Qualifiers: Hyperlipidemia type: mixed hyperlipidemia Qualified Code(s): E78.2 - Mixed hyperlipidemia Is this a current diagnosis for this admission?: Yes (7) Obstructive sleep apnea Is this a current diagnosis for this admission?: Yes (8) Osteoarthritis Is this a current diagnosis for this admission?: Yes (9) Rheumatoid arthritis Qualifiers: Rheumatoid arthritis location: multiple sites Is this a current diagnosis for this admission?: Yes Plan: Continue with methotrexate and prednisone. - Time Time Spent with patient: 25-34 minutes - Inpatient Certification Medical Necessity: Need for IV Antibiotics
[2017-03-29] MEDS: LOSARTAN POTASSIUM 50 MG TABLET PO SCH (11:57)
[2017-03-29] MEDS: CHOLECALCIFEROL (D3) 1,000 UNIT TABLET PO SCH (11:58)
[2017-03-29] MEDS: AMLODIPINE BESYLATE 5 MG TABLET PO SCH (11:58)
[2017-03-29] MEDS: TIOTROPIUM BROMIDE DPI 5 CAP/KIT (18 MCG/CAP) IH SCH (11:59)
[2017-03-29] MEDS: ALLOPURINOL 100 MG TABLET PO SCH (11:59)
[2017-03-29] MEDS: FOLIC ACID 1 MG TABLET PO SCH (11:59)
[2017-03-29] MEDS: PREDNISONE 5 MG TABLET PO SCH (12:00)
[2017-03-29] MEDS: SOTALOL HCL 80 MG TABLET PO SCH ×2 (12:00→22:54)
[2017-03-29] MEDS: FUROSEMIDE 20 MG TABLET PO SCH (12:01)
[2017-03-29 15:42] LABS: PROTHROMBIN TIME 13.9 SEC (11.4-15.4)
[2017-03-29] MEDS: CEFTRIAXONE SODIUM 1,000 MG in DEXTROSE 5%-WATER 50 ML IV SCH (15:57)
[2017-03-29] MEDS: MONTELUKAST SODIUM 10 MG TABLET PO SCH (22:54)
[2017-03-29] MEDS: WARFARIN SODIUM 5 MG TABLET PO SCH (22:54)
[2017-03-29] MEDS ORDERED: ALBUTEROL SULFATE HFA (90 MCG/PUFF) 200 PUFF/8.5 GM MDI IH ONE (23:07)
[2017-03-29] MEDS: ALBUTEROL SULFATE HFA (90 MCG/PUFF) 200 PUFF/8.5 GM MDI IH PRN (23:10)
[2017-03-30] MEDS: LANSOPRAZOLE 30 MG TAB.RAP.DR PO SCH (05:10)
[2017-03-30] MEDS: NORMAL SALINE 1000 ML 1,000 ML IV PRN (12:07)
[2017-03-30] MEDS: AMLODIPINE BESYLATE 5 MG TABLET PO SCH (12:08)
[2017-03-30] MEDS: FOLIC ACID 1 MG TABLET PO SCH (12:08)
[2017-03-30] MEDS: CHOLECALCIFEROL (D3) 1,000 UNIT TABLET PO SCH (12:10)
[2017-03-30] MEDS: ALLOPURINOL 100 MG TABLET PO SCH (12:10)
[2017-03-30] MEDS: FUROSEMIDE 20 MG TABLET PO SCH (12:10)
[2017-03-30] MEDS: TIOTROPIUM BROMIDE DPI 5 CAP/KIT (18 MCG/CAP) IH SCH (12:11)
[2017-03-30] MEDS: SOTALOL HCL 80 MG TABLET PO SCH ×2 (12:11→22:22)
[2017-03-30] MEDS: PREDNISONE 5 MG TABLET PO SCH (12:11)
--- NOTE | 2017-03-30 12:46 | PDOC PROGRESS REPORT ---
Subjective Progress Note for:: 03/30/17 Subjective:: Denies any complaints Reason For Visit: RHABDOMYOLYSIS WITH DEHYDRATION,FAILURE TO THRIVE Physical Exam Vital Signs: Temp Pulse Resp BP Pulse Ox 98.8 F 62 16 152/63 H 97 03/30/17 12:00 03/30/17 12:00 03/30/17 12:00 03/30/17 12:00 03/30/17 12:00 Intake & Output 03/29/17 03/30/17 03/31/17 06:59 06:59 06:59 Intake Total 2150 1805 Balance 2150 1805 Weight 98.3 kg 94.6 kg General appearance: PRESENT: no acute distress Eye exam: PRESENT: conjunctiva pink. ABSENT: scleral icterus Neck exam: ABSENT: JVD Respiratory exam: PRESENT: clear to auscultation juan pablo. ABSENT: rales, rhonchi, wheezes Cardiovascular exam: PRESENT: RRR. ABSENT: diastolic murmur, rubs, systolic murmur GI/Abdominal exam: PRESENT: normal bowel sounds, soft. ABSENT: distended, guarding, mass, organolmegaly, rebound, tenderness Extremities exam: ABSENT: calf tenderness, clubbing, pedal edema Psychiatric exam: PRESENT: appropriate affect Results Laboratory Results: 03/29/17 06:31 03/29/17 06:31 03/26/17 03/27/17 03/28/17 04:45 04:35 05:08 Creatine Kinase 731 H 398 H 196 H 03/29/17 06:31 Creatine Kinase 98 Impressions: Chest X-Ray 03/25/17 16:02 IMPRESSION: NO ACUTE RADIOGRAPHIC FINDING IN THE CHEST. Head CT 03/25/17 18:49 IMPRESSION: MILD CHRONIC CHANGES OF ATROPHY AND MICROVASCULAR ISCHEMIA. NO ACUTE PROCESS. EVIDENCE OF ACUTE STROKE: NO. Assessment & Plan - Diagnosis (1) Rhabdomyolysis Qualifiers: Rhabdomyolysis type: non-traumatic Qualified Code(s): M62.82 - Rhabdomyolysis Is this a current diagnosis for this admission?: Yes Plan: Patient has responded to IV fluids. (2) Urinary tract infection Qualifiers: Urinary tract infection type: site unspecified Is this a current diagnosis for this admission?: Yes Plan: Growing E. coli. It is sensitive to the Rocephin she is on. (3) Hypertension Qualifiers: Hypertension type: essential hypertension Qualified Code(s): I10 - Essential (primary) hypertension Is this a current diagnosis for this admission?: Yes Plan: Continue with Lasix, Norvasc and Cozaar. (4) Atrial fibrillation Qualifiers: Atrial fibrillation type: paroxysmal Qualified Code(s): I48.0 - Paroxysmal atrial fibrillation Is this a current diagnosis for this admission?: Yes Plan: Continue with sotalol and Coumadin. She is still subtherapeutic on her Coumadin. (5) Chronic venous stasis dermatitis of both lower extremities Is this a current diagnosis for this admission?: Yes (6) Hyperlipidemia Qualifiers: Hyperlipidemia type: mixed hyperlipidemia Qualified Code(s): E78.2 - Mixed hyperlipidemia Is this a current diagnosis for this admission?: Yes (7) Obstructive sleep apnea Is this a current diagnosis for this admission?: Yes (8) Osteoarthritis Is this a current diagnosis for this admission?: Yes (9) Rheumatoid arthritis Qualifiers: Rheumatoid arthritis location: multiple sites Is this a current diagnosis for this admission?: Yes Plan: Continue with methotrexate and prednisone. - Time Time Spent with patient: 15-24 minutes
[2017-03-30 15:43] LABS: INTERNATIONAL RATION (INR) 1.04; PROTHROMBIN TIME 14.3 SEC (11.4-15.4)
[2017-03-30] MEDS: CEFTRIAXONE SODIUM 1,000 MG in DEXTROSE 5%-WATER 50 ML IV SCH (16:23)
[2017-03-30] MEDS: WARFARIN SODIUM 5 MG TABLET PO SCH (22:22)
[2017-03-30] MEDS: MONTELUKAST SODIUM 10 MG TABLET PO SCH (22:22)
[2017-03-30] MEDS: ALBUTEROL SULFATE HFA (90 MCG/PUFF) 200 PUFF/8.5 GM MDI IH PRN (22:25)
[2017-03-31] MEDS: LANSOPRAZOLE 30 MG TAB.RAP.DR PO SCH (05:20)
[2017-03-31 06:20] LABS: ABSOLUTE BASOPHILS # (AUTO) 0.1 10^3/uL (0.0-0.2); ABSOLUTE EOSINOPHILS # (AUTO) 0.1 10^3/uL (0.0-0.6); ABSOLUTE LYMPHOCYTES (AUTO) 1.9 10^3/uL (0.5-4.7); ABSOLUTE MONOCYTES (AUTO) 0.6 10^3/uL (0.1-1.4); ABSOLUTE NEUT (AUTO) 3.7 10^3/uL (1.7-8.2); BASOPHILS % (AUTO) 0.9 % (0-2); EOSINOPHILS % (AUTO) 1.5 % (0-6); HEMATOCRIT 32.9 % (36.0-47.0); HEMOGLOBIN 10.5 g/dL (12.0-15.5); LYMPHOCYTES % (AUTO) 29.6 % (13-45); MEAN CORPUSCULAR HGB CONC 31.9 g/dL (32.0-36.0); MEAN CORPUSCULAR VOLUME 91 fl (80-97); MONOCYTES % (AUTO) 9.8 % (3-13); PLATELET COUNT 214 10^3/uL (150-450); RED BLOOD COUNT 3.63 10^6/uL (3.72-5.28); RED CELL DISTRIBUTION WIDTH 15.6 % (11.5-14.0); SEGMENTED NEUTROPHILS % (AUTO) 58.2 % (42-78); TOTAL CELLS COUNTED % (AUTO) 100 %; WHITE BLOOD COUNT 6.4 10^3/uL (4.0-10.5)
[2017-03-31 06:45] LABS: ANION GAP 7 (5-19); BLOOD UREA NITROGEN 15 mg/dL (7-20); CALCIUM 8.5 mg/dL (8.4-10.2); CARBON DIOXIDE 32 mmol/L (22-30); CHLORIDE 101 mmol/L (98-107); GLUCOSE 114 mg/dL (75-110); POTASSIUM 4.3 mmol/L (3.6-5.0); SODIUM 140.3 mmol/L (137-145)
--- NOTE | 2017-03-31 09:11 | PDOC DISCHARGE SUMMARY ---
General - Admit/Disc Date/PCP Admission Date/Primary Care Provider: 03/25/17 19:47 Discharge Date: 03/31/17 - Discharge Diagnosis (1) Rhabdomyolysis Is this a current diagnosis for this admission?: Yes (2) Urinary tract infection Is this a current diagnosis for this admission?: Yes (3) Hypertension Is this a current diagnosis for this admission?: Yes (4) Hyperlipidemia Is this a current diagnosis for this admission?: Yes (5) COPD (chronic obstructive pulmonary disease) Is this a current diagnosis for this admission?: Yes (6) Atrial fibrillation Is this a current diagnosis for this admission?: Yes (7) Reflux esophagitis Is this a current diagnosis for this admission?: Yes (8) Rheumatoid arthritis Is this a current diagnosis for this admission?: Yes (9) Chronic venous stasis dermatitis of both lower extremities Is this a current diagnosis for this admission?: Yes (10) Gout Is this a current diagnosis for this admission?: Yes (11) Obstructive sleep apnea Is this a current diagnosis for this admission?: Yes (12) Osteoarthritis Is this a current diagnosis for this admission?: Yes (13) Rhinitis, allergic Is this a current diagnosis for this admission?: Yes (14) Failure to thrive in adult Is this a current diagnosis for this admission?: Yes (15) Vitamin D deficiency Is this a current diagnosis for this admission?: Yes (16) DVT prophylaxis Is this a current diagnosis for this admission?: Yes - Additional Information Home Medications: Allopurinol [Zyloprim 100 mg Tablet] 100 mg PO DAILY 03/25/17 Amlodipine Besylate [Norvasc 5 mg Tablet] 5 mg PO DAILY 03/25/17 Cholecalciferol (Vitamin D3) [Vitamin D3 2000 unit Tablet] 2,000 units PO DAILY 03/25/17 Folic Acid [Folvite 1 mg Tablet] 1 mg PO DAILY 03/25/17 Furosemide [Lasix 20 mg Tablet] 20 mg PO DAILY 03/25/17 Lansoprazole [Prevacid] 30 mg PO DAILY 03/25/17 Losartan Potassium [Cozaar 100 mg Tablet] 100 mg PO DAILY 03/25/17 Methotrexate Sodium [Methotrexate] 2.5 mg PO FR@1000 03/25/17 Montelukast Sodium [Singulair 10 mg Tablet] 10 mg PO QPM 03/25/17 Prednisone 2.5 mg PO DAILY 03/25/17 Sotalol HCl [Sotalol] 40 mg PO BID 03/25/17 Tramadol HCl/Acetaminophen [Ultracet 37.5 mg/325 mg Tablet] 1 tab PO Q8HP PRN Warfarin Sodium [Coumadin 5 mg Tablet] 5 mg PO DAILY 03/25/17 History of Present Illness History of Present Illness: MAEGAN NARAYAN is a 81 year old female with hx of HTN/Hyperlipidemia/COPD/ Asthma/A-fib/Rheumatoid arthritis/GERD/SOBEIDA on CPAP/Gout/Rhinitis/Vitamin D def/ Chronic venous insufficiency of legs/Recurrent syncope s.p implantable recorder , who has been having worsening mobility issues in the past couple of weeks due to juan pablo. weakness and painful legs to the extent that she could no longer get out bed and take care of herself and subsequent failure to thrive. She was seen at ER on 03/21/2016 and her CK was high- due to Simvastatin, which was promptly discontinued. She was sent home after getting IV fluids at ER. However , pt continued to have mobility issues and her family could no longer take care of her and she was brought to ER for evaluation and possible SNF placement. Hospital Course Hospital Course: 81 year old woman who was admitted to telemetry floor on 03/25/2017 for rhabdomyolysis and UTI secondary to E.coli. She also has mobility issues and has not been to get up from bed and move around. She was put on IV fluids and initially on Levaquin and was later switched to Rocephin based on urine culture sensitivity result. She was also seen by PT/OT and they recommended short term REHAB at SNF. Patient has been accepted at [facility] and will be transferred there for short term REHAB. Both patient and her daughter are in agreement with this plan of care. Physical Exam Vital Signs: Temp Pulse Resp BP Pulse Ox 98.7 F 63 19 162/58 H 97 03/31/17 07:24 03/31/17 07:24 03/31/17 07:24 03/31/17 07:24 03/31/17 07:24 Intake & Output 03/30/17 03/31/17 04/01/17 06:59 06:59 06:59 Intake Total 1805 3110 Balance 1805 3110 Weight 94.6 kg General appearance: PRESENT: no acute distress, cooperative, well-developed, well-nourished Head exam: PRESENT: atraumatic, normocephalic Eye exam: PRESENT: EOMI, PERRLA Ear exam: PRESENT: TM's normal bilaterally Mouth exam: PRESENT: moist, neck supple, tongue midline Respiratory exam: PRESENT: clear to auscultation juan pablo, symmetrical Cardiovascular exam: PRESENT: +S1, +S2 Pulses: PRESENT: +1 pedal pulses bilateral GI/Abdominal exam: PRESENT: normal bowel sounds, soft Rectal exam: PRESENT: deferred Neurological exam: PRESENT: alert, awake, oriented to person, oriented to place , oriented to time Psychiatric exam: PRESENT: normal mood Results Laboratory Results: 03/31/17 05:35 03/31/17 05:35 03/31/17 03/31/17 05:35 05:35 WBC 6.4 RBC 3.63 L Hgb 10.5 L Hct 32.9 L MCV 91 MCH 29.0 MCHC 31.9 L RDW 15.6 H Plt Count 214 Seg Neutrophils % 58.2 Lymphocytes % 29.6 Monocytes % 9.8 Eosinophils % 1.5 Basophils % 0.9 Absolute Neutrophils 3.7 Absolute Lymphocytes 1.9 Absolute Monocytes 0.6 Absolute Eosinophils 0.1 Absolute Basophils 0.1 Sodium 140.3 Potassium 4.3 Chloride 101 Carbon Dioxide 32 H Anion Gap 7 BUN 15 Creatinine 0.77 Est GFR ( Amer) > 60 Est GFR (Non-Af Amer) > 60 Glucose 114 H Calcium 8.5 03/26/17 03/27/17 03/28/17 04:45 04:35 05:08 Creatine Kinase 731 H 398 H 196 H 03/29/17 06:31 Creatine Kinase 98 Impressions: Chest X-Ray 03/25/17 16:02 IMPRESSION: NO ACUTE RADIOGRAPHIC FINDING IN THE CHEST. Head CT 03/25/17 18:49 IMPRESSION: MILD CHRONIC CHANGES OF ATROPHY AND MICROVASCULAR ISCHEMIA. NO ACUTE PROCESS. EVIDENCE OF ACUTE STROKE: NO.
[2017-03-31] MEDS: ALLOPURINOL 100 MG TABLET PO SCH (10:49)
[2017-03-31] MEDS: CHOLECALCIFEROL (D3) 1,000 UNIT TABLET PO SCH (10:49)
[2017-03-31] MEDS: LOSARTAN POTASSIUM 50 MG TABLET PO SCH (10:49)
[2017-03-31] MEDS: AMLODIPINE BESYLATE 5 MG TABLET PO SCH (10:50)
[2017-03-31] MEDS: SOTALOL HCL 80 MG TABLET PO SCH ×2 (10:50→21:23)
[2017-03-31] MEDS: FUROSEMIDE 20 MG TABLET PO SCH (10:50)
[2017-03-31] MEDS: FOLIC ACID 1 MG TABLET PO SCH (10:50)
[2017-03-31] MEDS: PREDNISONE 5 MG TABLET PO SCH (10:51)
[2017-03-31] MEDS: TIOTROPIUM BROMIDE DPI 5 CAP/KIT (18 MCG/CAP) IH SCH (14:04)
[2017-03-31] MEDS: CEFTRIAXONE SODIUM 1,000 MG in DEXTROSE 5%-WATER 50 ML IV SCH (14:05)
[2017-03-31 15:36] LABS: INTERNATIONAL RATION (INR) 1.02; PROTHROMBIN TIME 14.1 SEC (11.4-15.4)
[2017-03-31] MEDS: WARFARIN SODIUM 5 MG TABLET PO SCH (21:23)
[2017-03-31] MEDS: MONTELUKAST SODIUM 10 MG TABLET PO SCH (21:23)
[2017-03-31 22:22] VITALS: BP 148/57
== END 2017-03-31 22:30 | DRG 558 ==
LOC: ER 14:25 → UNDOADMIN 19:47 → EH 19:47 → 4N 03-26 13:26
PROVIDERS: ADMIT Internal Medicine; ATTEND Internal Medicine
DX: M62.82 Rhabdomyolysis (principal); N39.0 Urinary tract infection, site not specified; E78.5 Hyperlipidemia, unspecified; J44.9 Chronic obstructive pulmonary disease, unspecified; I48.0 Paroxysmal atrial fibrillation; M06.9 Rheumatoid arthritis, unspecified; B96.20 Unspecified Escherichia coli [E. coli] as the cause of diseases classified elsewhere; K21.9 Gastro-esophageal reflux disease without esophagitis; I11.0 Hypertensive heart disease with heart failure; I50.9 Heart failure, unspecified; R62.7 Adult failure to thrive; E11.51 Type 2 diabetes mellitus with diabetic peripheral angiopathy without gangrene; I87.8 Other specified disorders of veins; M10.9 Gout, unspecified; G47.33 Obstructive sleep apnea (adult) (pediatric); J30.9 Allergic rhinitis, unspecified; E55.9 Vitamin D deficiency, unspecified; Z79.02 Long term (current) use of antithrombotics/antiplatelets; Z90.49 Acquired absence of other specified parts of digestive tract; Z90.710 Acquired absence of both cervix and uterus; Z88.0 Allergy status to penicillin
CPT/HCPCS: 36415; 70450; 71045; 80048; 80053; 80061; 81001; 82550; 82553; 83605; 83735; 84443; 84484; 85025; 85610; 87040; 87086; 87088; 87186; 93005; 93010; 99285; G8978-GP; G8979-GP; G8987-GO; G8988-GO; J0696; J1956; J3480; J3490; J7030; J7512; J8610

== ENCOUNTER 2017-05-28 14:44 | Emergency (ER) | payer MEDICARE, OTHER ==
[2017-05-28 15:04] VITALS: BP 154/82
--- NOTE | 2017-05-28 16:28 | RADIOLOGY REPORT (SQ) ---
EXAM DESCRIPTION: KNEE RIGHT 4 VIEWS COMPLETED DATE/TIME: 05/28/2017 4:18 pm REASON FOR STUDY: fall pain COMPARISON: None. NUMBER OF VIEWS: Four views. TECHNIQUE: AP, lateral, and both oblique radiographic images acquired of the right knee. LIMITATIONS: None. FINDINGS: MINERALIZATION: Osteopenia. BONES: No acute fracture or dislocation. No worrisome bone lesions. JOINT: No joint effusion. There is marked narrowing of the lateral joint compartment with subchondra l sclerosis. There are prominent posterior patellar spurs. SOFT TISSUES: No soft tissue swelling. No radio-opaque foreign body. OTHER: No other significant finding. IMPRESSION: Degenerative joint disease involving the lateral compartment in the patellofemoral rima rtment. No acute abnormality is seen. TECHNICAL DOCUMENTATION: JOB ID: [id number] [employer]- All Rights Reserved Reading location - IP/workstation name: [email or web address]
[2017-05-28] MEDS ORDERED: TRAMADOL HCL 50 MG TABLET PO ONE (17:08)
--- NOTE | 2017-05-28 17:13 | ER Document Report ---
ED Extremity Problem, Lower - General Chief Complaint: Knee Pain Stated Complaint: RIGHT KNEE PAIN Time Seen by Provider: 05/28/17 15:48 Mode of Arrival: Wheelchair Information source: Patient Notes: 81-year-old female presents to ED for complaint of pain in her right knee. She states she was coming out of the house and intermenstrual go back in the house fell landing on her right knee. Patient has pain in his right knee. She does have osteoarthritis. She also has gout peripheral vascular disease. Patient is seen in the emergency room frequently. TRAVEL OUTSIDE OF THE [place] IN LAST 30 DAYS: No - HPI Patient complains to provider of: Injury, Pain Location: Knee - Right Occurred: This afternoon Where: Home, Outdoors Onset/Duration: Gradual Quality of pain: Achy, Pressure Severity: Moderate Pain Level: 3 Context: Fell Recent injury: Yes Associated symptoms: Painful ambulation Exacerbated by: Movement, Walking Relieved by: Elevation, Ice, Rest - Related Data Allergies/Adverse Reactions: Penicillins Allergy (Verified 03/25/17 14:29) Past Medical History - General Information source: Patient - Social History Smoking Status: Never Smoker Cigarette use (# per day): No Chew tobacco use (# tins/day): No Smoking Education Provided: No Frequency of alcohol use: None Drug Abuse: None Lives with: Family Family History: Reviewed & Not Pertinent Patient has suicidal ideation: No Patient has homicidal ideation: No - Past Medical History Cardiac Medical History: Reports: Hx Atrial Fibrillation - intermittent, Hx Congestive Heart Failure, Hx DVT, Hx Hypercholesterolemia, Hx Hypertension, Hx Peripheral Vascular Disease Pulmonary Medical History: Reports: Hx Asthma, Hx COPD EENT Medical History: Reports: None Neurological Medical History: Reports: None Endocrine Medical History: Reports: Hx Diabetes Mellitus Type 2 Renal/ Medical History: Reports: None Malignancy Medical History: Reports: None GI Medical History: Reports: Hx Gastroesophageal Reflux Disease Musculoskeltal Medical History: Reports Hx Arthritis - RA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, Reports Hx Musculoskeletal Deformity, Reports Hx Musculoskeletal Trauma Skin Medical History: Reports None Psychiatric Medical History: Reports: None Traumatic Medical History: Reports: None Infectious Medical History: Reports: None Past Surgical History: Reports: Hx Cardiac Surgery - cardiac catheterization technologist, Hx Cholecystectomy, Hx Hysterectomy, Hx Tonsillectomy - Immunizations Hx Diphtheria, Pertussis, Tetanus Vaccination: Yes Hx Pneumococcal Vaccination: 03/17/12 Review of Systems - Review of Systems Constitutional: No symptoms reported EENT: No symptoms reported Cardiovascular: No symptoms reported Respiratory: No symptoms reported Gastrointestinal: No symptoms reported Genitourinary: No symptoms reported Female Genitourinary: No symptoms reported Musculoskeletal: Other - Fall landing on her right knee causing pain to the right knee. She has chronic pain in this knee Skin: No symptoms reported Hematologic/Lymphatic: No symptoms reported Neurological/Psychological: No symptoms reported -: Yes All other systems reviewed and negative Physical Exam - Vital signs Vitals: Temp Pulse Resp BP Pulse Ox 97.9 F 75 20 154/82 H 100 05/28/17 15:00 05/28/17 15:00 05/28/17 15:00 05/28/17 15:00 05/28/17 15:00 Interpretation: Normal - General General appearance: Appears well, Alert - HEENT Head: Normocephalic, Atraumatic Eyes: Normal Pupils: PERRL - Respiratory Respiratory status: No respiratory distress Chest status: Nontender Breath sounds: Normal Chest palpation: Normal - Cardiovascular Rhythm: Regular Heart sounds: Normal auscultation Murmur: No - Abdominal Inspection: Normal Distension: No distension Bowel sounds: Normal Tenderness: Nontender Organomegaly: No organomegaly - Back Back: Normal, Nontender - Extremities General upper extremity: Normal inspection, Nontender, Normal color, Normal ROM , Normal temperature General lower extremity: Nontender, Normal color, Normal temperature. No: Lidia 's sign Knee: Tender, Pain with ROM, Patellar tendon intact, Tender joint line, Other - Painful ambulation. No: Abrasion, Deformity, Dislocation, Drawer's test instability, Ecchymosis, Instability, Joint effusion, Laceration, Laxity with valgus stress, Laxity with varus stress, Unable to bear weight - Neurological Neuro grossly intact: Yes Cognition: Normal Orientation: AAOx4 [place] Coma Scale Eye Opening: Spontaneous [place] Coma Scale Verbal: Oriented Edie Coma Scale Motor: Obeys Commands [place] Coma Scale Total: 15 Speech: Normal Motor strength normal: LUE, RUE, LLE, RLE Sensory: Normal - Psychological Associated symptoms: Normal affect, Normal mood - Skin Skin Temperature: Warm Skin Moisture: Dry Skin Color: Normal Course - Re-evaluation Re-evalutation: 05/28/17 17:13 X-ray discussed with patient and family. Patient was treated with 1 tramadol in the emergency room this is what she takes for her chronic pain in the knee and she did fall and had a contusion to this knee. Patient was also instructed to follow-up with orthopedics. She does have arthritis to this knee. She was instructed to continue taking her normal medications for her gout peripheral vascular disease and heart problems. - Vital Signs Vital signs: Temp Pulse Resp BP Pulse Ox 97.9 F 75 20 154/82 H 100 05/28/17 15:00 05/28/17 15:00 05/28/17 15:00 05/28/17 15:00 05/28/17 15:00 - Diagnostic Test Radiology reviewed: Image reviewed, Reports reviewed Discharge - Discharge Clinical Impression: Fall Qualifiers: Encounter type: initial encounter Qualified Code(s): W19.XXXA - Unspecified fall, initial encounter Contusion of right knee Qualifiers: Encounter type: initial encounter Qualified Code(s): S80.01XA - Contusion of right knee, initial encounter Condition: Stable Disposition: HOME, SELF-CARE Additional Instructions: CONTUSION: Your injury has resulted in a contusion -- a crushing of the deep tissues. No injury to important structures was detected during the physician's exam. Contusions vary in the amount of pain they cause, and in the length of time required for healing. Typically, the area will become bruised, and will remain painful to touch for two or three weeks. However, most patients are back to working and playing within a few days. After the initial period of rest and cold-packs, your symptoms (together with the doctor's recommendations) will determine how rapidly you can get back to full activity. Usually this means "do what feels okay, but don't do things that hurt." If re-examination was recommended, it's important to follow up as instructed. Call the doctor or return any time if pain increases, if swelling becomes severe, if you develop numbness or weakness in an injured extremity, or if any other alarming symptoms occur. USE OF TYLENOL (ACETAMINOPHEN): Acetaminophen may be taken for pain relief or fever control. It's much safer than aspirin, offering a wider range of "safe" dosages. It is safe during . Some brand names are Tylenol, Panadol, Datril, Anacin 3, Tempra, and Liquiprin. Acetaminophen can be repeated every four hours. The following are maximum recommended dosages: WEIGHT Dose Drops Elixir Chewable( 80mg) (LBS.) drprs=droppers tsp=teaspoon 6 40 mg 0.4 ml (1/2) 6-11 80 mg 0.8 ml (full) tsp 1 tab 12-16 120 mg 1 1/2 drprs 3/4 tsp 1 1/2 tabs 17-23 160 mg 2 drprs 1 tsp 2 tabs 24-30 240 mg 3 drprs 1 1/2 tsp 3 tabs 30-35 320 mg 2 tsp 4 tabs 36-41 360 mg 2 1/4 tsp 4 1/2 tabs 42-47 400 mg 2 1/2 tsp 5 tabs 48-53 480 mg 3 tsp 6 tabs 54-59 520 mg 3 1/4 tsp 6 1/2 tabs 60-64 560 mg 3 1/2 tsp 7 tabs 65-70 600 mg 3 3/4 tsp 7 1/2 tabs 71-76 640 mg 4 tsp 8 tabs 77-82 720 mg 4 1/2 tsp 9 tabs 83-88 800 mg 5 tsp 10 tabs >89 pounds or adults 650 mg to 900 mg Acetaminophen can be repeated every four hours. Maximum dose not to exceed 4000 mg a day. These maximum recommended dosages are slightly higher than the dosages written on the product container, but these dosages are very safe and below the toxic dosage for acetaminophen. ICE PACKS: Apply ice packs frequently against the painful area. Many different schedules are recommended, such as "20 minutes on, 20 minutes off" or "one hour ice, two hours rest." If you need to work, you may need to go longer between ice treatments. You should plan to have the area ice packed AT LEAST one fourth of the time. The ice should be applied over the wrap, tape, or splint, or over a layer of cloth -- not directly against the skin. Some ice bags have a built-in cloth and can be put directly on the skin. WARM PACKS: After approximately two days, apply gentle heat (such as a heating pad or hot water bottle) for about 20 to 30 minutes about every two hours -- at least four times daily. Warmth and elevation will help you make a more rapid recovery , and will ease the pain considerably. Do not use HOT heat, and never apply heat for longer than 30 minutes. The continuous heat can invisibly damage skin and muscles -- even when no burn is seen on the surface. Damaged muscles can make you MORE sore. FOLLOW-UP CARE: If you have been referred to a physician for follow-up care, call the physician s office for an appointment as you were instructed or within the next two days. If you experience worsening or a significant change in your symptoms, notify the physician immediately or return to the Emergency Department at any time for re-evaluation. Forms: Elevated Blood Pressure Referrals: ONUR CAMPO MD [Primary Care Provider] - Follow up as needed GIO TSAI MD [ACTIVE STAFF] - Follow up as needed
== END 2017-05-28 18:48 | disposition home or self-care (01) ==
LOC: ER 14:44
DX: S80.01XA Contusion of right knee, initial encounter (principal); W19.XXXA Unspecified fall, initial encounter; Y92.009 Unspecified place in unspecified non-institutional (private) residence as the place of occurrence of the external cause; M17.0 Bilateral primary osteoarthritis of knee; M25.561 Pain in right knee; G89.29 Other chronic pain; Z79.891 Long term (current) use of opiate analgesic; E11.51 Type 2 diabetes mellitus with diabetic peripheral angiopathy without gangrene; M10.9 Gout, unspecified; I10 Essential (primary) hypertension; J44.9 Chronic obstructive pulmonary disease, unspecified
CPT/HCPCS: 99283; 73564; A9270

== ENCOUNTER 2017-08-11 21:35 | Inpatient (IN) | payer MEDICARE, OTHER ==
[2017-08-11] MEDS ORDERED: IPRATROPIUM/ALBUTEROL 0.5-2.5 MG/3 ML AMPUL NEB ONE (21:45)
--- NOTE | 2017-08-11 21:51 | ER Document Report ---
ED General - General Stated Complaint: DIFFICULTY BREATHING Time Seen by Provider: 08/11/17 21:43 Notes: The patient is an 82-year-old female with past medical history atrial fibrillation anticoagulant on warfarin, hypertension, hyperlipidemia, morbid obesity, immobility who presents by EMS for globalized generalized weakness, deconditioning, and 4 days of productive cough and fever. The patient apparently lives by herself and has a nurse aide that comes in daily. She has apparently not gotten out of her recliner in several days. Her niece contacted 911 when the patient was unable to get out of her chair and was noted to be covered in urine and feces. The patient herself seems somewhat reluctant to be here in the emergency department. She declines answer many of my questions regarding her living situation or her baseline mobility status. Her niece at the bedside reports that she does not think that is the patient has been taking her medications and the patient's pillbox is essentially full. Patient denies any chest pain, headache, neck pain, abdominal pain, nausea or vomiting. She does state that she feels more short of breath than normal. EMS reports that she was saturating 86% on room air at time of their arrival and noted to have diffuse wheezing. She did receive multiple nebulizers prior to arrival with some improvement of her symptoms. Nothing is been noted to worsen her symptoms. She has no history of similar events in the past per family at the bedside. TRAVEL OUTSIDE OF THE [place] IN LAST 30 DAYS: No - Related Data Allergies/Adverse Reactions: Penicillins Allergy (Verified 08/12/17 01:06) Past Medical History - General Information source: Patient - Social History Smoking Status: Former Smoker Frequency of alcohol use: None Drug Abuse: None Lives with: Alone Family History: Reviewed & Not Pertinent - Past Medical History Cardiac Medical History: Reports: Hx Atrial Fibrillation - intermittent, Hx Congestive Heart Failure, Hx DVT, Hx Hypercholesterolemia, Hx Hypertension, Hx Peripheral Vascular Disease Pulmonary Medical History: Reports: Hx Asthma, Hx COPD Endocrine Medical History: Reports: Hx Diabetes Mellitus Type 2 Renal/ Medical History: Denies: Hx Peritoneal Dialysis GI Medical History: Reports: Hx Gastroesophageal Reflux Disease Musculoskeltal Medical History: Reports Hx Arthritis - RA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, Reports Hx Musculoskeletal Deformity, Reports Hx Musculoskeletal Trauma Psychiatric Medical History: Denies: Hx Depression Past Surgical History: Reports: Hx Cardiac Surgery - shelter monitor, Hx Cholecystectomy, Hx Hysterectomy, Hx Tonsillectomy - Immunizations Hx Diphtheria, Pertussis, Tetanus Vaccination: Yes Hx Pneumococcal Vaccination: 03/17/12 Review of Systems - Review of Systems Notes: Constitutional: Positive for fever. HENT: Negative for sore throat. Eyes: Negative for visual changes. Cardiovascular: Negative for chest pain. Respiratory: Positive for shortness of breath. Gastrointestinal: Negative for abdominal pain, vomiting or diarrhea. Genitourinary: Positive for dysuria. Musculoskeletal: Negative for back pain. Skin: Negative for rash. Neurological: Negative for headaches, weakness or numbness. 10 point ROS negative except as marked above and in HPI. Physical Exam - Vital signs Vitals: Temp 100.1 F 08/11/17 21:45 Interpretation: Tachycardic, Tachypneic, Febrile Notes: PHYSICAL EXAMINATION: GENERAL: Appears extremely deconditioned and globally weak. In no acute distress however HEAD: Atraumatic, normocephalic. EYES: Pupils equal round and reactive to light, extraocular movements intact, sclera anicteric, conjunctiva are normal. ENT: nares patent, oropharynx clear without exudates. Dry mucous membranes. NECK: Normal range of motion, supple without lymphadenopathy LUNGS: Diffuse expiratory wheezing in all lung gomez with moderate tachypnea but no overt distress HEART: Irregularly irregular tachycardia without murmurs ABDOMEN: Soft, nontender, normoactive bowel sounds. No guarding, no rebound. No masses appreciated. EXTREMITIES: 2+ pitting edema to the bilateral lower extremities with very limited range of motion below the knees bilaterally. NEUROLOGICAL: No focal neurological deficits. Moves all extremities spontaneously and on command. PSYCH: Alert, oriented 3 although guarded on history taking. SKIN: Warm, Dry, normal turgor, dark, almost necrotic appearing skin to the bilateral distal lower extremities. Course - Re-evaluation Re-evalutation: 08/11/17 21:45 Presentation of an ill-appearing 82-year-old female with complaints of general weakness and deconditioning, almost no movement out of her recliner in over 4 days who presents smelling strongly of urine. EMS was apparently contacted by her niece due to concerns of gradual deterioration and patient being noncompliant with medications. On examination the patient moves all extremities spontaneously but is globally weak without any focality to the weakness. She has diffuse expiratory wheezing in all lung gomez but has received a nebulizer prior to arrival. She was initially had a the 85% on room air, no baseline oxygen requirement. Concern for possible acute pneumonia given clinical history versus urinary tract infection. The UTI would not however account for her hypoxia but given the smell of the patient this likewise seems to be at least secondary diagnosis. Will proceed with labs, chest x-ray, cultures, and reassess the patient. 08/12/17 00:11 Patient labs overall unremarkable. Chest x-ray is read as clear. Patient currently saturating 95% on room air. She continues to be very globally weak. Given patient's global weakness, initial hypoxia, progressive deconditioning, and leukocytosis with associated fever she does meet SIRS criteria and I clinically suspect that she has a pneumonia. The patient has been empirically started on levofloxacin. Will discuss with the hospitalist for admission for COPD exacerbation with an associated pneumonia. 08/12/17 01:11 Dr. Schroeder has accepted the patient for admission. The patient has spiked a temperature to 101.9F. Tylenol will be administered and will give an additional 500 cc of IV fluid. Overall her picture is now consistent with sepsis with likely underlying pneumonia and associated COPD exacerbation - Vital Signs Vital signs: Temp Pulse Resp BP Pulse Ox 100.1 F 19 127/61 H 98 08/11/17 21:45 08/12/17 02:04 08/12/17 02:04 08/12/17 02:04 - Laboratory Result Diagrams: 08/11/17 22:44 08/11/17 22:44 Laboratory results interpreted by me: 08/11/17 08/11/17 08/11/17 22:44 22:44 22:44 WBC 15.7 H MCHC 31.8 L RDW 15.9 H Seg Neutrophils % 80.1 H Lymphocytes % 12.1 L Absolute Neutrophils 12.6 H BUN 22 H Glucose 121 H Total Bilirubin 1.5 H NT-Pro-B Natriuret Pep 689 H Urine Protein Urine Blood Urine Urobilinogen 08/11/17 23:20 WBC MCHC RDW Seg Neutrophils % Lymphocytes % Absolute Neutrophils BUN Glucose Total Bilirubin NT-Pro-B Natriuret Pep Urine Protein 30 H Urine Blood MODERATE H Urine Urobilinogen 4.0 H - Diagnostic Test Radiology reviewed: Image reviewed, Reports reviewed Radiology results interpreted by me: 08/12/17 01:11 Chest x-ray: No acute infiltrate or pneumothorax - EKG Interpretation by Me Additional EKG results interpreted by me: 08/12/17 03:18 Atrial fibrillation. Rate 84. No ST elevations or depressions. QTC is 445. Discharge - Discharge Clinical Impression: COPD (chronic obstructive pulmonary disease) Qualifiers: COPD type: unspecified COPD Qualified Code(s): J44.9 - Chronic obstructive pulmonary disease, unspecified Pneumonia Qualifiers: Pneumonia type: due to unspecified organism Laterality: unspecified laterality Lung location: unspecified part of lung Qualified Code(s): J18.9 - Pneumonia, unspecified organism Sepsis Qualifiers: Sepsis type: sepsis due to unspecified organism Qualified Code(s): A41.9 - Sepsis, unspecified organism Condition: Fair Disposition: ADMITTED INPATIENT Admitting Provider: Kahlil Unit Admitted: [facility]
[2017-08-11] MEDS ORDERED: RINGERS SOLUTION,LACTATED 500 ML IV ONE (21:56)
[2017-08-11 23:02] LABS: VENOUS BLOOD BASE EXCESS 5.2 mmol/L; VENOUS BLOOD PCO2 56.2 mmHg (35-63); VENOUS BLOOD PH 7.37 (7.30-7.42)
[2017-08-11 23:03] LABS: ABSOLUTE BASOPHILS # (AUTO) 0.1 10^3/uL (0.0-0.2); ABSOLUTE EOSINOPHILS # (AUTO) 0.1 10^3/uL (0.0-0.6); ABSOLUTE LYMPHOCYTES (AUTO) 1.9 10^3/uL (0.5-4.7); ABSOLUTE MONOCYTES (AUTO) 1.1 10^3/uL (0.1-1.4); ABSOLUTE NEUT (AUTO) 12.6 10^3/uL (1.7-8.2); BASOPHILS % (AUTO) 0.7 % (0-2); EOSINOPHILS % (AUTO) 0.3 % (0-6); HEMATOCRIT 40.7 % (36.0-47.0); HEMOGLOBIN 12.9 g/dL (12.0-15.5); LYMPHOCYTES % (AUTO) 12.1 % (13-45); MEAN CORPUSCULAR HEMOGLOBIN 27.3 pg (27.0-33.4); MEAN CORPUSCULAR HGB CONC 31.8 g/dL (32.0-36.0); MEAN CORPUSCULAR VOLUME 86 fl (80-97); MONOCYTES % (AUTO) 6.8 % (3-13); PLATELET COUNT 265 10^3/uL (150-450); RED BLOOD COUNT 4.74 10^6/uL (3.72-5.28); RED CELL DISTRIBUTION WIDTH 15.9 % (11.5-14.0); SEGMENTED NEUTROPHILS % (AUTO) 80.1 % (42-78); TOTAL CELLS COUNTED % (AUTO) 100 %; WHITE BLOOD COUNT 15.7 10^3/uL (4.0-10.5)
[2017-08-11 23:16] LABS: ALANINE AMINOTRANSFERASE 21 U/L (9-52); ALBUMIN 3.8 g/dL (3.5-5.0); ALKALINE PHOSPHATASE 79 U/L (38-126); ANION GAP 13 (5-19); ASPARTATE AMINO TRANSFERASE 23 U/L (14-36); BILIRUBIN,DIRECT 0.3 mg/dL (0.0-0.4); BILIRUBIN,TOTAL 1.5 mg/dL (0.2-1.3); BLOOD UREA NITROGEN 22 mg/dL (7-20); CALCIUM 9.8 mg/dL (8.4-10.2); CARBON DIOXIDE 28 mmol/L (22-30); CHLORIDE 101 mmol/L (98-107); CREATINE KINASE 54 U/L (30-135); GLUCOSE 121 mg/dL (75-110); SODIUM 142.2 mmol/L (137-145); TOTAL PROTEIN 6.9 g/dL (6.3-8.2)
[2017-08-11 23:27] LABS: NT PRO BNP 689 pg/mL (<450)
[2017-08-11 23:29] LABS: TROPONIN I < 0.012 ng/mL
[2017-08-11 23:39] LABS: APPEARANCE,URINE CLEAR; BILIRUBIN,URINE NEGATIVE (NEGATIVE); COLOR,URINE YELLOW; GLUCOSE, URINE NEGATIVE (NEGATIVE); KETONES,URINE NEGATIVE (NEGATIVE); LEUKOCYTE ESTERASE,URINE NEGATIVE (NEGATIVE); NITRITE,URINE NEGATIVE (NEGATIVE); PROTEIN,URINE 30 mg/dL (NEGATIVE); URINE SPECIFIC GRAVITY 1.019
--- NOTE | 2017-08-12 | RADIOLOGY REPORT (SQ) ---
EXAM DESCRIPTION: XR CHEST 1 VIEW CLINICAL HISTORY: 82 years Female, sob, hypoxia COMPARISON: ..18. NUMBER OF VIEWS/TECHNIQUE: 1/AP FINDINGS: Increased lung volume, small atelectasis or scar in the left lower chest, atherosclerosis, normal cardiac silhouette, and scoliotic curvature. Stable. IMPRESSION: No acute cardiopulmonary findings.
[2017-08-12] MEDS ORDERED: METHYLPREDNISOLONE INJ 125 MG/2 ML SDV IV ONE (00:10)
[2017-08-12] MEDS ORDERED: LEVOFLOXACIN 750 MG/D5W RTU 750 MG/150 ML RTUPB IV ONE (00:10)
[2017-08-12] MEDS ORDERED: RINGERS SOLUTION,LACTATED 500 ML IV ONE (01:10)
[2017-08-12] MEDS ORDERED: ACETAMINOPHEN 325 MG TABLET PO ONE (01:11)
[2017-08-12] MEDS ORDERED: AZITHROMYCIN INJ 500 MG VIAL IV PRN (02:18)
[2017-08-12] MEDS ORDERED: ACETAMINOPHEN 325 MG TABLET PO PRN (02:21)
[2017-08-12] MEDS ORDERED: ZOLPIDEM TARTRATE 5 MG TABLET PO PRN (02:23)
[2017-08-12] MEDS ORDERED: CEFTRIAXONE 1 GM/D5W RTU 1 GM/50 ML RTUPB IV ONE (02:30)
[2017-08-12] MEDS ORDERED: AZITHROMYCIN 500 MG in DEXTROSE 5%-WATER 250 ML IV ONE (03:15)
[2017-08-12] MEDS: LANSOPRAZOLE 30 MG TAB.RAP.DR PO SCH (05:57)
[2017-08-12] MEDS: METHYLPREDNISOLONE INJ 125 MG/2 ML SDV IV SCH ×3 (05:57→18:50)
[2017-08-12 07:28] LABS: HEMATOCRIT 36.8 % (36.0-47.0); HEMOGLOBIN 11.7 g/dL (12.0-15.5); MEAN CORPUSCULAR HEMOGLOBIN 27.2 pg (27.0-33.4); MEAN CORPUSCULAR HGB CONC 31.8 g/dL (32.0-36.0); MEAN CORPUSCULAR VOLUME 86 fl (80-97); PLATELET COUNT 214 10^3/uL (150-450); RED CELL DISTRIBUTION WIDTH 16.4 % (11.5-14.0); WHITE BLOOD COUNT 13.7 10^3/uL (4.0-10.5)
[2017-08-12 07:46] LABS: ALANINE AMINOTRANSFERASE 21 U/L (9-52); ALBUMIN 3.2 g/dL (3.5-5.0); ALKALINE PHOSPHATASE 66 U/L (38-126); ANION GAP 9 (5-19); ASPARTATE AMINO TRANSFERASE 18 U/L (14-36); BILIRUBIN,DIRECT 0.5 mg/dL (0.0-0.4); BILIRUBIN,TOTAL 1.4 mg/dL (0.2-1.3); BLOOD UREA NITROGEN 20 mg/dL (7-20); CALCIUM 9.4 mg/dL (8.4-10.2); CARBON DIOXIDE 28 mmol/L (22-30); CHLORIDE 104 mmol/L (98-107); CHOLESTEROL 132.07 mg/dL (0-200); GLUCOSE 153 mg/dL (75-110); POTASSIUM 4.6 mmol/L (3.6-5.0); SODIUM 141.2 mmol/L (137-145); TRIGLYCERIDES 42 mg/dL (<150)
[2017-08-12 07:57] LABS: DIRECT LDL 76 mg/dL (<100)
[2017-08-12] MEDS: IPRATROPIUM/ALBUTEROL 0.5-2.5 MG/3 ML AMPUL NEB PRN ×2 (08:01→20:55)
[2017-08-12] MEDS ORDERED: LEVALBUTEROL HCL NEB 1.25 MG/3 ML AMPUL NEB ONE (09:00)
--- NOTE | 2017-08-12 09:56 | EKG REPORT ---
SEVERITY:- ABNORMAL ECG - SINUS RHYTHM MULTIPLE ATRIAL PREMATURE COMPLEXES : Confirmed by: Louisa Alexis MD 12-Aug-2017 09:56:05
[2017-08-12] MEDS ORDERED: LEVALBUTEROL HCL NEB 1.25 MG/3 ML AMPUL NEB SCH (10:00)
[2017-08-12] MEDS ORDERED: CEFTRIAXONE 1 GM/D5W RTU 1 GM/50 ML RTUPB IV SCH (10:00)
--- NOTE | 2017-08-12 10:01 | PDOC H&P ---
History of Present Illness Admission Date/PCP: 08/12/17 01:34 ONUR JAHAIRA Patient complains of: Cough, fever, dyspnea, wheezes, weakness and inability to gte up from seat for 4 days. History of Present Illness: MAEGAN NARAYAN is a 82 year old female with hx of HTN/Hyperlipidemia/COPD/ Asthma/GERD/A-fib/Rheumatoid arthritis/Gout/SOBEIDA on CPAP/Recurrent syncope on implantable monitor/Osteoarthritis/Obesity, who has been having cough, fever, dyspnea, wheezes,weakness for about 1 week. She was given Keflex and later Azithromycin. She has not been able to get up from her seat for 4 days due to deconditioning. Her niece called EMS and she was brought to ER. Her temperature at ER was 101.9; her oxygen saturation was 85% on room air. 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 Psychiatric Medical History: Denies: Depression Past Surgical History Past Surgical History: Reports: Cholecystectomy, Hysterectomy, Tonsillectomy Social History Lives with: Alone Smoking Status: Former Smoker Frequency of Alcohol Use: None Hx Recreational Drug Use: No Drugs: None Hx Prescription Drug Abuse: No Family History Family History: Reviewed & Not Pertinent Parental Family History Reviewed: Yes Children Family History Reviewed: Yes Sibling(s) Family History Reviewed.: Yes Medication/Allergy Allergies/Adverse Reactions: Penicillins Allergy (Verified 08/12/17 01:06) Physical Exam Vital Signs: Temp Pulse Resp BP Pulse Ox 100.1 F 79 18 137/81 H 99 08/11/17 21:45 08/12/17 08:07 08/12/17 08:07 08/12/17 08:07 08/12/17 08:07 Intake & Output 08/11/17 08/12/17 08/13/17 06:59 06:59 06:59 Output Total 75 Balance -75 General appearance: PRESENT: cooperative, mild distress, well-developed, well- nourished Head exam: PRESENT: atraumatic, normocephalic Eye exam: PRESENT: EOMI, PERRLA Ear exam: PRESENT: normal external ear exam, TM's normal bilaterally Mouth exam: PRESENT: moist, neck supple, tongue midline Neck exam: PRESENT: full ROM Respiratory exam: PRESENT: decreased breath sounds, symmetrical, wheezes Cardiovascular exam: PRESENT: irregular rhythm, +S1, +S2 Pulses: PRESENT: +1 pedal pulses bilateral GI/Abdominal exam: PRESENT: normal bowel sounds, soft Rectal exam: PRESENT: deferred Neurological exam: PRESENT: alert, awake, oriented to person, oriented to place , oriented to time Psychiatric exam: PRESENT: normal mood Results Laboratory Results: 08/12/17 07:14 08/12/17 07:14 08/12/17 08/12/17 08/12/17 07:14 07:14 07:14 WBC 13.7 H RBC 4.30 Hgb 11.7 L Hct 36.8 MCV 86 MCH 27.2 MCHC 31.8 L RDW 16.4 H Plt Count 214 Sodium 141.2 Potassium 4.6 Chloride 104 Carbon Dioxide 28 Anion Gap 9 BUN 20 Creatinine 0.63 Est GFR ( Amer) > 60 Est GFR (Non-Af Amer) > 60 Glucose 153 H Calcium 9.4 Total Bilirubin 1.4 H AST 18 ALT 21 Alkaline Phosphatase 66 Total Protein 6.0 L Albumin 3.2 L Triglycerides 42 Cholesterol 132.07 LDL Cholesterol Direct 76 VLDL Cholesterol 8.0 L HDL Cholesterol 51 TSH 0.81 Impressions: Chest X-Ray 08/11/17 21:44 IMPRESSION: No acute cardiopulmonary findings. Assessment & Plan - Diagnosis (1) Sepsis Qualifiers: Sepsis type: sepsis due to unspecified organism Qualified Code(s): A41.9 - Sepsis, unspecified organism Is this a current diagnosis for this admission?: Yes Plan: Ct with oxygen by N/C 2 L/min, Rocephin 1 g daily IV; Azithromycin 500 mg qd IV ; Tylenol 650 mg q4h po prn; F/u blood culture and urine culture. (2) COPD (chronic obstructive pulmonary disease) Qualifiers: COPD type: unspecified COPD Qualified Code(s): J44.9 - Chronic obstructive pulmonary disease, unspecified Is this a current diagnosis for this admission?: Yes Plan: Ct with oxygen by N/C 2 L/min, Solumedrol 80 mg q6h IV, Duonebs q4h prn; Xopenex nebx 1.25 mg q6h; Spiriva 18 mcg daily. (3) Pneumonia Qualifiers: Pneumonia type: due to unspecified organism Laterality: unspecified laterality Lung location: unspecified part of lung Qualified Code(s): J18.9 - Pneumonia, unspecified organism Is this a current diagnosis for this admission?: Yes Plan: Ct with Rocephin1 G DQ IV; Azithromycin 500 mg qd IOV; Tylenol 650 mg q4h po prn ; F/u blood cultures. (4) Urinary tract infection Qualifiers: Urinary tract infection type: site unspecified Is this a current diagnosis for this admission?: Yes Plan: Ct with Rocephin 1 G daily IV; Tylenol 650 mg q4h po prn; f/u urine and blood cultures. (5) Atrial fibrillation Qualifiers: Atrial fibrillation type: paroxysmal Qualified Code(s): I48.0 - Paroxysmal atrial fibrillation Is this a current diagnosis for this admission?: Yes Plan: Ct with Warfarin 5 mg qd po; Sotalol 40 mg BID pO; f/u daily PT/INR. (6) Hypertension Qualifiers: Hypertension type: essential hypertension Qualified Code(s): I10 - Essential (primary) hypertension Is this a current diagnosis for this admission?: Yes Plan: Ct with Losartan 100 mg qd po; Amlodipine 5 mg qd po; 2 g sodium diet. (7) Rheumatoid arthritis Qualifiers: Rheumatoid arthritis location: multiple sites Is this a current diagnosis for this admission?: Yes Plan: Ct with Methotrexate 7.5 mg q weekly po; Folic acid 1 mg qd po; Prednisone 2.5 mg qd po. (8) Reflux esophagitis Is this a current diagnosis for this admission?: Yes Plan: Ct with Prevacid 30 m g qd po. (9) Gout Is this a current diagnosis for this admission?: Yes Plan: Ct with Allopurinol 100 mg qd po. (10) Obstructive sleep apnea Is this a current diagnosis for this admission?: Yes Plan: Ct with CPAP. (11) Osteoarthritis Is this a current diagnosis for this admission?: Yes Plan: Ct with Tramadol/Tylenol 37.5/325 1 q8h prn po. (12) DVT prophylaxis Is this a current diagnosis for this admission?: Yes Plan: Ct with SC; pt is already on warfarin 5 mg qd po. - Time Time Spent: 30 to 50 Minutes Medications reviewed and adjusted accordingly: Yes Anticipated discharge: SNF Within: within 72 hours - Inpatient Certification Medical Necessity: Failure to Improve With Outpatient Therapy, Significant Comorbidiites Make Outpatient Treatment Too Risky, Need Close Monitoring Due to Risk of Patient Decompensation, Need for Nebulizer Therapy and Monitoring of Response, Need for IV Antibiotics, Risk of Diagnosis Which Will Require Inpatient Eval/Care/Monitoring
[2017-08-12 11:28] LABS: INTERNATIONAL RATION (INR) 1.32; PROTHROMBIN TIME 17.1 SEC (11.4-15.4)
[2017-08-12] MEDS: DOCUSATE SODIUM 100 MG CAPSULE PO SCH (11:40)
[2017-08-12] MEDS ORDERED: (PENDING PHARMACY ID) (Tramadol Hcl/Acetaminophen [Tramadol-Acetaminophn 37.5-325] 1 TAB) PO PRN (16:30)
[2017-08-12] MEDS: MONTELUKAST SODIUM 10 MG TABLET PO SCH (18:50)
[2017-08-12] MEDS: WARFARIN SODIUM 5 MG TABLET PO SCH (22:32)
[2017-08-12] MEDS: SOTALOL HCL 80 MG TABLET PO SCH (22:32)
[2017-08-13] MEDS: METHYLPREDNISOLONE INJ 125 MG/2 ML SDV IV SCH ×2 (01:49→05:53)
[2017-08-13] MEDS: LANSOPRAZOLE 30 MG TAB.RAP.DR PO SCH (05:53)
[2017-08-13 06:31] LABS: ABSOLUTE BASOPHILS # (AUTO) 0.1 10^3/uL (0.0-0.2); ABSOLUTE LYMPHOCYTES (AUTO) 0.9 10^3/uL (0.5-4.7); ABSOLUTE MONOCYTES (AUTO) 0.3 10^3/uL (0.1-1.4); ABSOLUTE NEUT (AUTO) 11.4 10^3/uL (1.7-8.2); BASOPHILS % (AUTO) 0.4 % (0-2); EOSINOPHILS % (AUTO) 0.1 % (0-6); HEMATOCRIT 34.1 % (36.0-47.0); HEMOGLOBIN 10.9 g/dL (12.0-15.5); LYMPHOCYTES % (AUTO) 7.1 % (13-45); MEAN CORPUSCULAR HEMOGLOBIN 27.3 pg (27.0-33.4); MEAN CORPUSCULAR HGB CONC 32.1 g/dL (32.0-36.0); MEAN CORPUSCULAR VOLUME 85 fl (80-97); MONOCYTES % (AUTO) 2.2 % (3-13); PLATELET COUNT 225 10^3/uL (150-450); RED CELL DISTRIBUTION WIDTH 15.6 % (11.5-14.0); SEGMENTED NEUTROPHILS % (AUTO) 90.2 % (42-78); TOTAL CELLS COUNTED % (AUTO) 100 %; WHITE BLOOD COUNT 12.6 10^3/uL (4.0-10.5)
[2017-08-13 06:48] LABS: ALANINE AMINOTRANSFERASE 26 U/L (9-52); ALKALINE PHOSPHATASE 55 U/L (38-126); ANION GAP 12 (5-19); ASPARTATE AMINO TRANSFERASE 28 U/L (14-36); BILIRUBIN,DIRECT 0.3 mg/dL (0.0-0.4); BILIRUBIN,TOTAL 0.4 mg/dL (0.2-1.3); BLOOD UREA NITROGEN 28 mg/dL (7-20); CALCIUM 9.6 mg/dL (8.4-10.2); CARBON DIOXIDE 27 mmol/L (22-30); CHLORIDE 104 mmol/L (98-107); GLUCOSE 171 mg/dL (75-110); POTASSIUM 4.6 mmol/L (3.6-5.0); SODIUM 142.8 mmol/L (137-145); TOTAL PROTEIN 5.7 g/dL (6.3-8.2)
[2017-08-13] MEDS: LEVALBUTEROL HCL NEB 1.25 MG/3 ML AMPUL NEB SCH (08:49)
[2017-08-13] MEDS ORDERED: (PENDING PHARMACY ID) (Warfarin Sodium 5 MG) PO SCH (10:00)
[2017-08-13] MEDS ORDERED: PREDNISONE 2.5 MG PO SCH (10:00)
[2017-08-13] MEDS ORDERED: (PENDING PHARMACY ID) (Cholecalciferol (Vitamin D3) [D3-2000] 2,000 UNIT) PO SCH (10:00)
[2017-08-13] MEDS: FOLIC ACID 1 MG TABLET PO SCH (11:09)
[2017-08-13] MEDS: CHOLECALCIFEROL (D3) 1,000 UNIT TABLET PO SCH (11:10)
[2017-08-13] MEDS: LOSARTAN POTASSIUM 50 MG TABLET PO SCH (11:10)
[2017-08-13] MEDS: SOTALOL HCL 80 MG TABLET PO SCH ×2 (11:11→20:57)
[2017-08-13] MEDS: AMLODIPINE BESYLATE 5 MG TABLET PO SCH (11:11)
[2017-08-13] MEDS: DOCUSATE SODIUM 100 MG CAPSULE PO SCH (11:11)
[2017-08-13] MEDS: CEFTRIAXONE SODIUM 1,000 MG in DEXTROSE 5%-WATER 50 ML IV SCH (11:12)
[2017-08-13] MEDS: CYANOCOBALAMIN (VITAMIN B-12) 1,000 MCG TABLET PO SCH (11:12)
[2017-08-13] MEDS: PREDNISONE 5 MG TABLET PO SCH (11:12)
[2017-08-13] MEDS: AZITHROMYCIN 500 MG in DEXTROSE 5%-WATER 250 ML IV SCH (12:21)
--- NOTE | 2017-08-13 13:39 | PDOC PROGRESS REPORT ---
Subjective Progress Note for:: 08/13/17 Subjective:: She is feeling better. Her Urine culture showed E.coli while sputum culture showed Gram negative rods. We will f/u with planner/scheduler and PT/OT for discharge planning for either home or SNF placement. We decreased Solumedrol to 40 mg q8h IV. Reason For Visit: CHRONIC OBSTRUCTIVE PULMONARY DISEASE,PNEUMONIA, Physical Exam Vital Signs: Temp Pulse Resp BP Pulse Ox 97.9 F 75 16 148/59 H 100 08/13/17 11:25 08/13/17 11:25 08/13/17 11:25 08/13/17 11:25 08/13/17 11:25 Intake & Output 08/12/17 08/13/17 08/14/17 06:59 06:59 06:59 Intake Total 42 233 Output Total 75 850 225 Balance -75 -808 8 Weight 92 kg General appearance: PRESENT: no acute distress, obese, well-developed, well- nourished Head exam: PRESENT: atraumatic, normocephalic Eye exam: PRESENT: EOMI, PERRLA Ear exam: PRESENT: normal external ear exam, TM's normal bilaterally Mouth exam: PRESENT: neck supple, tongue midline Neck exam: PRESENT: full ROM Respiratory exam: PRESENT: decreased breath sounds, symmetrical Cardiovascular exam: PRESENT: irregular rhythm, +S1, +S2 Pulses: PRESENT: +1 pedal pulses bilateral GI/Abdominal exam: PRESENT: normal bowel sounds, soft Rectal exam: PRESENT: deferred Neurological exam: PRESENT: alert, awake, oriented to person, oriented to place , oriented to time Psychiatric exam: PRESENT: normal mood Results Laboratory Results: 08/13/17 05:38 08/13/17 05:38 08/13/17 08/13/17 05:38 05:38 WBC 12.6 H RBC 4.00 Hgb 10.9 L Hct 34.1 L MCV 85 MCH 27.3 MCHC 32.1 RDW 15.6 H Plt Count 225 Seg Neutrophils % 90.2 H Lymphocytes % 7.1 L Monocytes % 2.2 L Eosinophils % 0.1 Basophils % 0.4 Absolute Neutrophils 11.4 H Absolute Lymphocytes 0.9 Absolute Monocytes 0.3 Absolute Eosinophils 0.0 Absolute Basophils 0.1 Sodium 142.8 Potassium 4.6 Chloride 104 Carbon Dioxide 27 Anion Gap 12 BUN 28 H Creatinine 0.71 Est GFR ( Amer) > 60 Est GFR (Non-Af Amer) > 60 Glucose 171 H Calcium 9.6 Total Bilirubin 0.4 AST 28 ALT 26 Alkaline Phosphatase 55 Total Protein 5.7 L Albumin 3.0 L Impressions: Chest X-Ray 08/11/17 21:44 IMPRESSION: No acute cardiopulmonary findings. Assessment & Plan - Diagnosis (1) Sepsis Qualifiers: Sepsis type: sepsis due to unspecified organism Qualified Code(s): A41.9 - Sepsis, unspecified organism Is this a current diagnosis for this admission?: Yes Plan: Ct with oxygen by N/C 2 L/min, Rocephin 1 g daily IV; Azithromycin 500 mg qd IV ; Tylenol 650 mg q4h po prn; F/u blood culture and sputum culture. (2) COPD (chronic obstructive pulmonary disease) Qualifiers: COPD type: unspecified COPD Qualified Code(s): J44.9 - Chronic obstructive pulmonary disease, unspecified Is this a current diagnosis for this admission?: Yes Plan: Ct with oxygen by N/C 2 L/min, Solumedrol 40 mg q8h IV, Duonebs q4h prn; Xopenex nebx 1.25 mg q6h; Spiriva 18 mcg daily. (3) Pneumonia Qualifiers: Pneumonia type: due to unspecified organism Laterality: unspecified laterality Lung location: unspecified part of lung Qualified Code(s): J18.9 - Pneumonia, unspecified organism Is this a current diagnosis for this admission?: Yes Plan: Ct with Rocephin1 G QD IV; Azithromycin 500 mg qd IV; Tylenol 650 mg q4h po prn ; F/u blood and sputum cultures. (4) Urinary tract infection Qualifiers: Urinary tract infection type: site unspecified Is this a current diagnosis for this admission?: Yes Plan: Ct with Rocephin 1 G daily IV; Tylenol 650 mg q4h po prn; f/u blood cultures. (5) Atrial fibrillation Qualifiers: Atrial fibrillation type: paroxysmal Qualified Code(s): I48.0 - Paroxysmal atrial fibrillation Is this a current diagnosis for this admission?: Yes Plan: Ct with Warfarin 5 mg qd po; Sotalol 40 mg BID pO; f/u daily PT/INR. (6) Hypertension Qualifiers: Hypertension type: essential hypertension Qualified Code(s): I10 - Essential (primary) hypertension Is this a current diagnosis for this admission?: Yes Plan: Ct with Losartan 100 mg qd po; Amlodipine 5 mg qd po; 2 g sodium diet. (7) Rheumatoid arthritis Qualifiers: Rheumatoid arthritis location: multiple sites Is this a current diagnosis for this admission?: Yes Plan: Ct with Methotrexate 7.5 mg q weekly po; Folic acid 1 mg qd po; Prednisone 2.5 mg qd po. (8) Reflux esophagitis Is this a current diagnosis for this admission?: Yes Plan: Ct with Prevacid 30 m g qd po. (9) Gout Is this a current diagnosis for this admission?: Yes (10) Obstructive sleep apnea Is this a current diagnosis for this admission?: Yes Plan: Ct with CPAP. (11) Osteoarthritis Is this a current diagnosis for this admission?: Yes Plan: Ct with Tramadol/Tylenol 37.5/325 1 q8h prn po. (12) DVT prophylaxis Is this a current diagnosis for this admission?: Yes Plan: Ct with SC; pt is already on warfarin 5 mg qd po.
[2017-08-13] MEDS ORDERED: METHYLPREDNISOLONE INJ 40 MG/1 ML SDV IV SCH (14:00)
[2017-08-13] MEDS ORDERED: METHYLPREDNISOLONE INJ 125 MG/2 ML SDV IV SCH (14:00)
[2017-08-13] MEDS: MONTELUKAST SODIUM 10 MG TABLET PO SCH (17:28)
[2017-08-13] MEDS: GUAIFENESIN 600 MG TABLET.SA PO SCH (20:56)
[2017-08-13] MEDS: WARFARIN SODIUM 5 MG TABLET PO SCH (20:56)
[2017-08-13] MEDS: METHYLPREDNISOLONE INJ 40 MG/1 ML SDV IV SCH (20:56)
[2017-08-13] MEDS ORDERED: ONDANSETRON HCL INJ/PF 4 MG/2 ML SDV IV PRN (23:04)
[2017-08-14] MEDS: METHYLPREDNISOLONE INJ 40 MG/1 ML SDV IV SCH ×4 (03:04→21:13)
[2017-08-14] MEDS: LANSOPRAZOLE 30 MG TAB.RAP.DR PO SCH (05:19)
[2017-08-14 06:16] LABS: INTERNATIONAL RATION (INR) 1.23; PROTHROMBIN TIME 16.1 SEC (11.4-15.4)
[2017-08-14 06:30] LABS: ALANINE AMINOTRANSFERASE 25 U/L (9-52); ALBUMIN 3.7 g/dL (3.5-5.0); ALKALINE PHOSPHATASE 66 U/L (38-126); ANION GAP 13 (5-19); ASPARTATE AMINO TRANSFERASE 36 U/L (14-36); BILIRUBIN,DIRECT 0.3 mg/dL (0.0-0.4); BILIRUBIN,TOTAL 0.3 mg/dL (0.2-1.3); BLOOD UREA NITROGEN 37 mg/dL (7-20); CALCIUM 9.8 mg/dL (8.4-10.2); CARBON DIOXIDE 29 mmol/L (22-30); CHLORIDE 102 mmol/L (98-107); GLUCOSE 145 mg/dL (75-110); POTASSIUM 5.1 mmol/L (3.6-5.0); SODIUM 144.1 mmol/L (137-145); TOTAL PROTEIN 6.8 g/dL (6.3-8.2)
[2017-08-14 06:55] LABS: ABSOLUTE LYMPHOCYTES (AUTO) 0.8 10^3/uL (0.5-4.7); ABSOLUTE MONOCYTES (AUTO) 0.5 10^3/uL (0.1-1.4); BASOPHILS % (AUTO) 0.3 % (0-2); HEMATOCRIT 39.4 % (36.0-47.0); HEMOGLOBIN 12.7 g/dL (12.0-15.5); LYMPHOCYTES % (AUTO) 5.9 % (13-45); MEAN CORPUSCULAR HEMOGLOBIN 27.6 pg (27.0-33.4); MEAN CORPUSCULAR HGB CONC 32.1 g/dL (32.0-36.0); MEAN CORPUSCULAR VOLUME 86 fl (80-97); MONOCYTES % (AUTO) 4.1 % (3-13); PLATELET COUNT 297 10^3/uL (150-450); RED BLOOD COUNT 4.58 10^6/uL (3.72-5.28); RED CELL DISTRIBUTION WIDTH 16.2 % (11.5-14.0); SEGMENTED NEUTROPHILS % (AUTO) 89.7 % (42-78); TOTAL CELLS COUNTED % (AUTO) 100 %; WHITE BLOOD COUNT 13.4 10^3/uL (4.0-10.5)
[2017-08-14] MEDS: LEVALBUTEROL HCL NEB 1.25 MG/3 ML AMPUL NEB SCH (08:39)
[2017-08-14] MEDS: DOCUSATE SODIUM 100 MG CAPSULE PO SCH (08:57)
[2017-08-14] MEDS: CEFTRIAXONE SODIUM 1,000 MG in DEXTROSE 5%-WATER 50 ML IV SCH (10:40)
[2017-08-14] MEDS: SOTALOL HCL 80 MG TABLET PO SCH ×2 (10:41→21:13)
[2017-08-14] MEDS: PREDNISONE 5 MG TABLET PO SCH (10:41)
[2017-08-14] MEDS: LOSARTAN POTASSIUM 50 MG TABLET PO SCH (10:41)
[2017-08-14] MEDS: GUAIFENESIN 600 MG TABLET.SA PO SCH ×2 (10:41→21:14)
[2017-08-14] MEDS: AMLODIPINE BESYLATE 5 MG TABLET PO SCH (10:42)
[2017-08-14] MEDS: TIOTROPIUM BROMIDE DPI 5 CAP/KIT (18 MCG/CAP) IH SCH (10:42)
[2017-08-14] MEDS: CHOLECALCIFEROL (D3) 1,000 UNIT TABLET PO SCH (10:43)
[2017-08-14] MEDS: CYANOCOBALAMIN (VITAMIN B-12) 1,000 MCG TABLET PO SCH (10:43)
[2017-08-14] MEDS: FOLIC ACID 1 MG TABLET PO SCH (10:43)
[2017-08-14] MEDS: AZITHROMYCIN 500 MG in DEXTROSE 5%-WATER 250 ML IV SCH (12:03)
[2017-08-14] MEDS ORDERED: VANCOMYCIN HCL 0 MG in DEXTROSE 5%-WATER 250 ML IV NR (12:30)
--- NOTE | 2017-08-14 13:10 | PDOC PROGRESS REPORT ---
Subjective Progress Note for:: 08/14/17 Subjective:: She is feeling better, though still has some wheezes. Her sputum culture showed pseudomonas aeruginosa, we will switch her from Rocephin to Cefepime. Her blood culture showed Gram positive cocci, we will add Vancomycin as per [facility] protocol. We will f/u with landscape architect and planner for her discharge disposition. Reason For Visit: SEPSIS SECONDARY TO UTI/PNU Physical Exam Vital Signs: Temp Pulse Resp BP Pulse Ox 98.2 F 63 16 140/60 H 98 08/14/17 11:59 08/14/17 11:59 08/14/17 11:59 08/14/17 11:59 08/14/17 11:59 Intake & Output 08/13/17 08/14/17 08/15/17 06:59 06:59 06:59 Intake Total 42 1283 Output Total 850 1000 Balance -808 283 Weight 92 kg 95.3 kg General appearance: PRESENT: no acute distress, cooperative, obese, well- developed, well-nourished Head exam: PRESENT: atraumatic, normocephalic Eye exam: PRESENT: EOMI, PERRLA Ear exam: PRESENT: normal external ear exam, TM's normal bilaterally Mouth exam: PRESENT: moist, neck supple, tongue midline Neck exam: PRESENT: full ROM Respiratory exam: PRESENT: decreased breath sounds, symmetrical, wheezes Cardiovascular exam: PRESENT: irregular rhythm, +S1, +S2 Pulses: PRESENT: +1 pedal pulses bilateral GI/Abdominal exam: PRESENT: normal bowel sounds, soft Rectal exam: PRESENT: deferred Extremities exam: PRESENT: full ROM Neurological exam: PRESENT: alert, awake, oriented to person, oriented to place , oriented to time Psychiatric exam: PRESENT: normal mood Results Laboratory Results: 08/14/17 05:16 08/14/17 05:16 08/14/17 08/14/17 05:16 05:16 WBC 13.4 H RBC 4.58 Hgb 12.7 Hct 39.4 MCV 86 MCH 27.6 MCHC 32.1 RDW 16.2 H Plt Count 297 Seg Neutrophils % 89.7 H Lymphocytes % 5.9 L Monocytes % 4.1 Eosinophils % 0.0 Basophils % 0.3 Absolute Neutrophils 12.0 H Absolute Lymphocytes 0.8 Absolute Monocytes 0.5 Absolute Eosinophils 0.0 Absolute Basophils 0.0 Sodium 144.1 Potassium 5.1 H Chloride 102 Carbon Dioxide 29 Anion Gap 13 BUN 37 H Creatinine 0.93 Est GFR ( Amer) > 60 Est GFR (Non-Af Amer) 58 L Glucose 145 H Calcium 9.8 Total Bilirubin 0.3 AST 36 ALT 25 Alkaline Phosphatase 66 Total Protein 6.8 Albumin 3.7 Impressions: Chest X-Ray 08/11/17 21:44 IMPRESSION: No acute cardiopulmonary findings. Assessment & Plan - Diagnosis (1) Sepsis Qualifiers: Sepsis type: sepsis due to unspecified organism Qualified Code(s): A41.9 - Sepsis, unspecified organism Is this a current diagnosis for this admission?: Yes Plan: Ct with oxygen by N/C 2 L/min, Cefepime 2 g daily IV; Vancomycin IV as per [facility] protocol. (2) COPD (chronic obstructive pulmonary disease) Qualifiers: COPD type: unspecified COPD Qualified Code(s): J44.9 - Chronic obstructive pulmonary disease, unspecified Is this a current diagnosis for this admission?: Yes Plan: Ct with oxygen by N/C 2 L/min, Solumedrol 40 mg q6h IV, Duonebs q4h prn; Xopenex nebx 1.25 mg q6h; Spiriva 18 mcg daily. (3) Pneumonia Qualifiers: Pneumonia type: due to unspecified organism Laterality: unspecified laterality Lung location: unspecified part of lung Qualified Code(s): J18.9 - Pneumonia, unspecified organism Is this a current diagnosis for this admission?: Yes Plan: Ct with Cefepime 2 g daily IV; Vancomycin IV as per [facility] protocol; Tylenol 650 mg q4h po prn. (4) Urinary tract infection Qualifiers: Urinary tract infection type: site unspecified Is this a current diagnosis for this admission?: Yes Plan: Ct with Cefepime 2 g daily IV; Vancomycin IV as per [facility] protocol; Tylenol 650 mg q6h po prn. (5) Atrial fibrillation Qualifiers: Atrial fibrillation type: paroxysmal Qualified Code(s): I48.0 - Paroxysmal atrial fibrillation Is this a current diagnosis for this admission?: Yes Plan: Ct with Warfarin 5 mg qd po; Sotalol 40 mg BID pO; f/u daily PT/INR. (6) Hypertension Qualifiers: Hypertension type: essential hypertension Qualified Code(s): I10 - Essential (primary) hypertension Is this a current diagnosis for this admission?: Yes Plan: Ct with Losartan 100 mg qd po; Amlodipine 5 mg qd po; 2 g sodium diet. (7) Rheumatoid arthritis Qualifiers: Rheumatoid arthritis location: multiple sites Is this a current diagnosis for this admission?: Yes Plan: Ct with Methotrexate 7.5 mg q weekly po; Folic acid 1 mg qd po; Prednisone 2.5 mg qd po. (8) Reflux esophagitis Is this a current diagnosis for this admission?: Yes Plan: Ct with Prevacid 30 m g qd po. (9) Gout Is this a current diagnosis for this admission?: Yes Plan: Ct with Allopurinol 100 mg qd po. (10) Obstructive sleep apnea Is this a current diagnosis for this admission?: Yes Plan: Ct with CPAP. (11) Osteoarthritis Is this a current diagnosis for this admission?: Yes Plan: Ct with Tramadol/Tylenol 37.5/325 1 q8h prn po. (12) DVT prophylaxis Is this a current diagnosis for this admission?: Yes Plan: Ct with SC; pt is already on warfarin 5 mg qd po.
[2017-08-14] MEDS: VANCOMYCIN HCL 1,500 MG in DEXTROSE 5%-WATER 250 ML IV SCH (14:25)
[2017-08-14] MEDS: MONTELUKAST SODIUM 10 MG TABLET PO SCH (17:52)
[2017-08-14] MEDS: CEFEPIME 2 GM/D5W RTU 2 GM/50 ML RTUPB IV SCH (17:53)
[2017-08-14] MEDS: WARFARIN SODIUM 5 MG TABLET PO SCH (21:15)
[2017-08-15] MEDS: METHYLPREDNISOLONE INJ 40 MG/1 ML SDV IV SCH ×4 (03:22→22:29)
[2017-08-15 05:23] LABS: INTERNATIONAL RATION (INR) 1.37; PROTHROMBIN TIME 17.5 SEC (11.4-15.4)
[2017-08-15 05:29] LABS: HEMATOCRIT 39.3 % (36.0-47.0); HEMOGLOBIN 12.3 g/dL (12.0-15.5); MEAN CORPUSCULAR HEMOGLOBIN 27.1 pg (27.0-33.4); MEAN CORPUSCULAR HGB CONC 31.3 g/dL (32.0-36.0); MEAN CORPUSCULAR VOLUME 87 fl (80-97); PLATELET COUNT 228 10^3/uL (150-450); RED BLOOD COUNT 4.55 10^6/uL (3.72-5.28); RED CELL DISTRIBUTION WIDTH 16.3 % (11.5-14.0); WHITE BLOOD COUNT 7.8 10^3/uL (4.0-10.5)
[2017-08-15 05:46] LABS: ALANINE AMINOTRANSFERASE 36 U/L (9-52); ALBUMIN 3.3 g/dL (3.5-5.0); ALKALINE PHOSPHATASE 58 U/L (38-126); ANION GAP 9 (5-19); ASPARTATE AMINO TRANSFERASE 27 U/L (14-36); BILIRUBIN,DIRECT 0.3 mg/dL (0.0-0.4); BILIRUBIN,TOTAL 0.3 mg/dL (0.2-1.3); BLOOD UREA NITROGEN 38 mg/dL (7-20); CALCIUM 9.5 mg/dL (8.4-10.2); CARBON DIOXIDE 31 mmol/L (22-30); CHLORIDE 102 mmol/L (98-107); GLUCOSE 144 mg/dL (75-110); POTASSIUM 5.4 mmol/L (3.6-5.0); SODIUM 142.4 mmol/L (137-145); TOTAL PROTEIN 6.3 g/dL (6.3-8.2)
[2017-08-15 05:51] LABS: ABSOLUTE LYMPHOCYTES# (MANUAL) 0.7 10^3/uL (0.5-4.7); ABSOLUTE MONOCYTES # (MANUAL) 0.4 10^3/uL (0.1-1.4); ABSOLUTE NEUTROPHILS# (MANUAL) 6.6 10^3/uL (1.7-8.2); BASOPHILS % (MANUAL) 0 % (0-2); EOSINOPHILS % (MANUAL) 1 % (0-6); LYMPHOCYTES % (MANUAL) 9 % (13-45); MONOCYTES % (MANUAL) 5 % (3-13); SEGMENTED NEUTROPHILS % (MAN) 85 % (42-78); TOTAL CELLS COUNTED 100
[2017-08-15 05:52] LABS: ANISOCYTOSIS 1+; PLATELET COMMENT ADEQUATE; TOXIC GRANULATION SLIGHT
[2017-08-15] MEDS: LANSOPRAZOLE 30 MG TAB.RAP.DR PO SCH (06:07)
[2017-08-15] MEDS: CEFEPIME 2 GM/D5W RTU 2 GM/50 ML RTUPB IV SCH ×2 (06:09→17:49)
[2017-08-15] MEDS: LEVALBUTEROL HCL NEB 1.25 MG/3 ML AMPUL NEB SCH (08:36)
--- NOTE | 2017-08-15 09:05 | RADIOLOGY REPORT (SQ) ---
EXAM DESCRIPTION: CHEST SINGLE VIEW COMPLETED DATE/TIME: 08/15/2017 8:41 am REASON FOR STUDY: cough COMPARISON: 08/11/2017. EXAM PARAMETERS: NUMBER OF VIEWS: One view. TECHNIQUE: Single frontal radiographic view of the chest acquired. RADIATION DOSE: NA LIMITATIONS: None. FINDINGS: LUNGS AND PLEURA: No opacities, masses or pneumothorax. No pleural effusion. MEDIASTINUM AND HILAR STRUCTURES: No masses. Contour normal. HEART AND VASCULAR STRUCTURES: Heart normal in size. Normal vasculature. BONES: No acute findings. Degenerative changes in the shoulders. HARDWARE: Cardiac recorder. OTHER: No other significant finding. IMPRESSION: NO ACUTE RADIOGRAPHIC FINDING IN THE CHEST. TECHNICAL DOCUMENTATION: JOB ID: [id number] [employer]- All Rights Reserved Reading location - IP/workstation name: [email or web address]
[2017-08-15] MEDS: PREDNISONE 5 MG TABLET PO SCH (09:16)
[2017-08-15] MEDS: SOTALOL HCL 80 MG TABLET PO SCH ×2 (09:17→22:28)
[2017-08-15] MEDS: AMLODIPINE BESYLATE 5 MG TABLET PO SCH (09:18)
[2017-08-15] MEDS: LOSARTAN POTASSIUM 50 MG TABLET PO SCH (09:18)
[2017-08-15] MEDS: FOLIC ACID 1 MG TABLET PO SCH (09:20)
[2017-08-15] MEDS: CYANOCOBALAMIN (VITAMIN B-12) 1,000 MCG TABLET PO SCH (09:20)
[2017-08-15] MEDS: CHOLECALCIFEROL (D3) 1,000 UNIT TABLET PO SCH (09:21)
[2017-08-15] MEDS: GUAIFENESIN 600 MG TABLET.SA PO SCH ×2 (09:24→22:29)
[2017-08-15] MEDS: TIOTROPIUM BROMIDE DPI 5 CAP/KIT (18 MCG/CAP) IH SCH (09:25)
[2017-08-15] MEDS: DOCUSATE SODIUM 100 MG CAPSULE PO SCH (09:30)
[2017-08-15] MEDS ORDERED: METHOTREXATE SODIUM 2.5 MG TABLET PO SCH ×2 (10:00→18:00)
[2017-08-15] MEDS: VANCOMYCIN HCL 1,500 MG in DEXTROSE 5%-WATER 250 ML IV SCH (13:21)
--- NOTE | 2017-08-15 16:19 | PDOC PROGRESS REPORT ---
Subjective Progress Note for:: 08/15/17 Subjective:: She is feeling better and less wheezes and cough today. No fever. Her repeat chest xray showed no abnormality; her WBC is back to normal. We will keep her here for the weekend. Reason For Visit: SEPSIS SECONDARY TO UTI/PNU Physical Exam Vital Signs: Temp Pulse Resp BP Pulse Ox 99.8 F 58 L 16 134/51 H 100 08/15/17 11:10 08/15/17 14:00 08/15/17 11:10 08/15/17 11:10 08/15/17 11:10 Intake & Output 08/14/17 08/15/17 08/16/17 06:59 06:59 06:59 Intake Total 1283 1687 Output Total 1000 1450 Balance 283 237 Weight 95.3 kg 98.7 kg General appearance: PRESENT: cooperative, mild distress, obese, well-developed, well-nourished Head exam: PRESENT: atraumatic, normocephalic Eye exam: PRESENT: EOMI, PERRLA Ear exam: PRESENT: normal external ear exam, TM's normal bilaterally Mouth exam: PRESENT: neck supple, tongue midline Neck exam: PRESENT: full ROM Respiratory exam: PRESENT: decreased breath sounds, symmetrical, wheezes Cardiovascular exam: PRESENT: irregular rhythm, +S1, +S2 Pulses: PRESENT: +1 pedal pulses bilateral GI/Abdominal exam: PRESENT: normal bowel sounds, soft Rectal exam: PRESENT: deferred Neurological exam: PRESENT: alert, awake, oriented to person, oriented to place , oriented to time Psychiatric exam: PRESENT: normal mood Results Laboratory Results: 08/15/17 04:42 08/15/17 04:42 08/15/17 08/15/17 04:42 04:42 WBC 7.8 RBC 4.55 Hgb 12.3 Hct 39.3 MCV 87 MCH 27.1 MCHC 31.3 L RDW 16.3 H Plt Count 228 Seg Neutrophils % Not Reportable Lymphocytes % Not Reportable Monocytes % Not Reportable Eosinophils % Not Reportable Basophils % Not Reportable Absolute Neutrophils Not Reportable Absolute Lymphocytes Not Reportable Absolute Monocytes Not Reportable Absolute Eosinophils Not Reportable Absolute Basophils Not Reportable Sodium 142.4 Potassium 5.4 H Chloride 102 Carbon Dioxide 31 H Anion Gap 9 BUN 38 H Creatinine 0.96 Est GFR ( Amer) > 60 Est GFR (Non-Af Amer) 56 L Glucose 144 H Calcium 9.5 Total Bilirubin 0.3 AST 27 ALT 36 Alkaline Phosphatase 58 Total Protein 6.3 Albumin 3.3 L Impressions: Chest X-Ray 08/15/17 06:00 IMPRESSION: NO ACUTE RADIOGRAPHIC FINDING IN THE CHEST. Assessment & Plan - Diagnosis (1) Acute respiratory failure with hypoxia Is this a current diagnosis for this admission?: Yes Plan: Ct with oxygen byy N/C 2 L/min to keep saturation >92%; Cefepime 2 g q12h IV; Vancomycin IV as per [facility] protocol; Solumedrol 40 mg q8h IV; Duonebs q4h prn; Xopenex 1.25 mg q6h . (2) Sepsis Qualifiers: Sepsis type: sepsis due to unspecified organism Qualified Code(s): A41.9 - Sepsis, unspecified organism Is this a current diagnosis for this admission?: Yes Plan: Ct with oxygen by N/C 2 L/min, Cefepime 2 g q12h IV; Vancomycin IV as per [facility] protocol. (3) COPD (chronic obstructive pulmonary disease) Qualifiers: COPD type: unspecified COPD Qualified Code(s): J44.9 - Chronic obstructive pulmonary disease, unspecified Is this a current diagnosis for this admission?: Yes Plan: Ct with oxygen by N/C 2 L/min, Solumedrol 40 mg q8h IV, Duonebs q4h prn; Xopenex nebx 1.25 mg q6h; Spiriva 18 mcg daily. (4) Pneumonia Qualifiers: Pneumonia type: due to unspecified organism Laterality: unspecified laterality Lung location: unspecified part of lung Qualified Code(s): J18.9 - Pneumonia, unspecified organism Is this a current diagnosis for this admission?: Yes Plan: Ct with Cefepime 2 g Q12H IV; Vancomycin IV as per [facility] protocol; Mucinex 600 mg BID po; Tylenol 650 mg q4h po prn. (5) Urinary tract infection Qualifiers: Urinary tract infection type: site unspecified Is this a current diagnosis for this admission?: Yes Plan: Ct with Cefepime 2 g Q12H IV; Vancomycin IV as per [facility] protocol; Tylenol 650 mg q6h po prn. (6) Atrial fibrillation Qualifiers: Atrial fibrillation type: paroxysmal Qualified Code(s): I48.0 - Paroxysmal atrial fibrillation Is this a current diagnosis for this admission?: Yes Plan: Ct with Warfarin 5 mg qd po; Sotalol 40 mg BID pO; f/u daily PT/INR. (7) Hypertension Qualifiers: Hypertension type: essential hypertension Qualified Code(s): I10 - Essential (primary) hypertension Is this a current diagnosis for this admission?: Yes Plan: Ct with Losartan 100 mg qd po; Amlodipine 5 mg qd po; 2 g sodium diet. (8) Rheumatoid arthritis Qualifiers: Rheumatoid arthritis location: multiple sites Is this a current diagnosis for this admission?: Yes Plan: Ct with Methotrexate 7.5 mg q weekly po; Folic acid 1 mg qd po; Prednisone 2.5 mg qd po. (9) Reflux esophagitis Is this a current diagnosis for this admission?: Yes Plan: Ct with Prevacid 30 m g qd po. (10) Gout Is this a current diagnosis for this admission?: Yes Plan: Ct with Allopurinol 100 mg qd po. (11) Obstructive sleep apnea Is this a current diagnosis for this admission?: Yes Plan: Ct with CPAP. (12) Osteoarthritis Is this a current diagnosis for this admission?: Yes Plan: Ct with Tramadol/Tylenol 37.5/325 1 q8h prn po. (13) DVT prophylaxis Is this a current diagnosis for this admission?: Yes Plan: Ct with SC; pt is already on warfarin 5 mg qd po.
[2017-08-15] MEDS ORDERED: SODIUM POLYSTYRENE SULFONATE 15 GM/60 ML PO ONE (16:40)
[2017-08-15] MEDS: MONTELUKAST SODIUM 10 MG TABLET PO SCH (17:47)
[2017-08-15] MEDS: WARFARIN SODIUM 5 MG TABLET PO SCH (22:29)
[2017-08-16 05:19] LABS: INTERNATIONAL RATION (INR) 1.53; PROTHROMBIN TIME 19.1 SEC (11.4-15.4)
[2017-08-16 05:20] LABS: ABSOLUTE LYMPHOCYTES (AUTO) 0.6 10^3/uL (0.5-4.7); ABSOLUTE MONOCYTES (AUTO) 0.2 10^3/uL (0.1-1.4); ABSOLUTE NEUT (AUTO) 6.1 10^3/uL (1.7-8.2); BASOPHILS % (AUTO) 0.4 % (0-2); HEMATOCRIT 36.3 % (36.0-47.0); HEMOGLOBIN 11.6 g/dL (12.0-15.5); LYMPHOCYTES % (AUTO) 8.5 % (13-45); MEAN CORPUSCULAR HEMOGLOBIN 27.3 pg (27.0-33.4); MEAN CORPUSCULAR VOLUME 86 fl (80-97); MONOCYTES % (AUTO) 3.4 % (3-13); PLATELET COUNT 228 10^3/uL (150-450); RED BLOOD COUNT 4.25 10^6/uL (3.72-5.28); SEGMENTED NEUTROPHILS % (AUTO) 87.7 % (42-78); TOTAL CELLS COUNTED % (AUTO) 100 %
[2017-08-16 05:28] LABS: ALANINE AMINOTRANSFERASE 53 U/L (9-52); ALBUMIN 3.1 g/dL (3.5-5.0); ALKALINE PHOSPHATASE 51 U/L (38-126); ANION GAP 10 (5-19); ASPARTATE AMINO TRANSFERASE 44 U/L (14-36); BILIRUBIN,DIRECT 0.2 mg/dL (0.0-0.4); BILIRUBIN,TOTAL 0.2 mg/dL (0.2-1.3); BLOOD UREA NITROGEN 28 mg/dL (7-20); CALCIUM 9.2 mg/dL (8.4-10.2); CARBON DIOXIDE 33 mmol/L (22-30); CHLORIDE 101 mmol/L (98-107); GLUCOSE 150 mg/dL (75-110); POTASSIUM 4.1 mmol/L (3.6-5.0); SODIUM 143.6 mmol/L (137-145); TOTAL PROTEIN 5.9 g/dL (6.3-8.2)
[2017-08-16] MEDS: METHYLPREDNISOLONE INJ 40 MG/1 ML SDV IV SCH ×3 (05:40→21:56)
[2017-08-16] MEDS: LANSOPRAZOLE 30 MG TAB.RAP.DR PO SCH (05:40)
[2017-08-16] MEDS: CEFEPIME 2 GM/D5W RTU 2 GM/50 ML RTUPB IV SCH ×2 (05:43→18:23)
[2017-08-16] MEDS: LEVALBUTEROL HCL NEB 1.25 MG/3 ML AMPUL NEB SCH (08:23)
[2017-08-16] MEDS: AMLODIPINE BESYLATE 5 MG TABLET PO SCH (10:01)
[2017-08-16] MEDS: CYANOCOBALAMIN (VITAMIN B-12) 1,000 MCG TABLET PO SCH (10:01)
[2017-08-16] MEDS: GUAIFENESIN 600 MG TABLET.SA PO SCH ×2 (10:01→21:56)
[2017-08-16] MEDS: CHOLECALCIFEROL (D3) 1,000 UNIT TABLET PO SCH (10:01)
[2017-08-16] MEDS: LOSARTAN POTASSIUM 50 MG TABLET PO SCH (10:02)
[2017-08-16] MEDS: PREDNISONE 5 MG TABLET PO SCH (10:02)
[2017-08-16] MEDS: DOCUSATE SODIUM 100 MG CAPSULE PO SCH (10:02)
[2017-08-16] MEDS: SOTALOL HCL 80 MG TABLET PO SCH ×2 (10:02→21:56)
[2017-08-16] MEDS: FOLIC ACID 1 MG TABLET PO SCH (10:02)
[2017-08-16] MEDS: TIOTROPIUM BROMIDE DPI 5 CAP/KIT (18 MCG/CAP) IH SCH (10:03)
[2017-08-16] MEDS ORDERED: AMLODIPINE BESYLATE 5 MG TABLET PO ONE (10:45)
--- NOTE | 2017-08-16 14:52 | PDOC PROGRESS REPORT ---
Subjective Progress Note for:: 08/16/17 Subjective:: Patient is seen resting in bed. Her sister is at the bedside. She denies any chest pain, shortness of breath or dyspnea at rest. She continues to have a loose congested cough. She states it is improving. She denies any nausea, vomiting or abdominal pain. She is eating well. She denies any significant arthralgias or myalgias at the present time. She states occasionally she does have pain in her lower extremities. Remaining review of systems are negative. Reason For Visit: SEPSIS SECONDARY TO UTI/PNU Physical Exam Vital Signs: Temp Pulse Resp BP Pulse Ox 97.8 F 54 L 14 145/63 H 100 08/16/17 11:08 08/16/17 11:08 08/16/17 11:08 08/16/17 11:08 08/16/17 11:08 Intake & Output 08/15/17 08/16/17 08/17/17 06:59 06:59 06:59 Intake Total 1687 2144 437 Output Total 1450 1400 200 Balance 237 744 237 Weight 98.7 kg 98.1 kg General appearance: PRESENT: no acute distress, obese, well-developed, well- nourished Head exam: PRESENT: atraumatic, normocephalic Eye exam: PRESENT: conjunctiva pink, EOMI, PERRLA. ABSENT: scleral icterus Ear exam: PRESENT: normal external ear exam Mouth exam: PRESENT: moist, tongue midline Neck exam: ABSENT: carotid bruit, JVD, lymphadenopathy, thyromegaly Respiratory exam: PRESENT: rhonchi, symmetrical, unlabored Cardiovascular exam: PRESENT: RRR. ABSENT: diastolic murmur, rubs, systolic murmur Pulses: PRESENT: normal dorsalis pedis pul Vascular exam: PRESENT: normal capillary refill GI/Abdominal exam: PRESENT: normal bowel sounds, soft. ABSENT: distended, guarding, mass, organolmegaly, rebound, tenderness Rectal exam: PRESENT: deferred Extremities exam: PRESENT: full ROM, other - Chronic venous stasis changes of her bilateral lower extremities.. ABSENT: calf tenderness, clubbing, pedal edema Musculoskeletal exam: PRESENT: ambulatory, full ROM Neurological exam: PRESENT: alert, awake, oriented to person, oriented to place , oriented to time, oriented to situation, CN II-XII grossly intact. ABSENT: motor sensory deficit Psychiatric exam: PRESENT: appropriate affect, normal mood. ABSENT: homicidal ideation, suicidal ideation Skin exam: PRESENT: dry, intact, warm. ABSENT: cyanosis, rash Results Laboratory Results: 08/16/17 04:51 08/16/17 04:51 08/16/17 08/16/17 04:51 04:51 WBC 7.0 RBC 4.25 Hgb 11.6 L Hct 36.3 MCV 86 MCH 27.3 MCHC 32.0 RDW 16.0 H Plt Count 228 Seg Neutrophils % 87.7 H Lymphocytes % 8.5 L Monocytes % 3.4 Eosinophils % 0.0 Basophils % 0.4 Absolute Neutrophils 6.1 Absolute Lymphocytes 0.6 Absolute Monocytes 0.2 Absolute Eosinophils 0.0 Absolute Basophils 0.0 Sodium 143.6 Potassium 4.1 Chloride 101 Carbon Dioxide 33 H Anion Gap 10 BUN 28 H Creatinine 0.68 Est GFR ( Amer) > 60 Est GFR (Non-Af Amer) > 60 Glucose 150 H Calcium 9.2 Total Bilirubin 0.2 AST 44 H ALT 53 H Alkaline Phosphatase 51 Total Protein 5.9 L Albumin 3.1 L Impressions: Chest X-Ray 08/15/17 06:00 IMPRESSION: NO ACUTE RADIOGRAPHIC FINDING IN THE CHEST. Assessment & Plan - Diagnosis (1) Acute respiratory failure with hypoxia Is this a current diagnosis for this admission?: Yes Plan: Improving with current treatment. Continue IV antibiotics cultures pending. Continue nebulizer treatments (2) COPD (chronic obstructive pulmonary disease) Qualifiers: COPD type: unspecified COPD Qualified Code(s): J44.9 - Chronic obstructive pulmonary disease, unspecified Is this a current diagnosis for this admission?: Yes Plan: Sputum culture positive for Pseudomonas (3) Pneumonia Qualifiers: Pneumonia type: due to unspecified organism Laterality: unspecified laterality Lung location: unspecified part of lung Qualified Code(s): J18.9 - Pneumonia, unspecified organism Is this a current diagnosis for this admission?: Yes Plan: Continue IV antibiotics. Sputum culture positive for Pseudomonas. (4) Sepsis Qualifiers: Sepsis type: sepsis due to unspecified organism Qualified Code(s): A41.9 - Sepsis, unspecified organism Is this a current diagnosis for this admission?: Yes Plan: Tachycardia and hypotensive have resolved. Continue current regimen. (5) Acute cystitis with hematuria Is this a current diagnosis for this admission?: Yes Plan: Urine culture positive for E. coli. (6) Atrial fibrillation Qualifiers: Atrial fibrillation type: paroxysmal Qualified Code(s): I48.0 - Paroxysmal atrial fibrillation Is this a current diagnosis for this admission?: Yes Plan: She is rate controlled on current medications. (7) DVT (deep venous thrombosis) Is this a current diagnosis for this admission?: Yes - Time Time Spent with patient: 25-34 minutes Total Critical Time (Minutes): 20 Medications reviewed and adjusted accordingly: Yes Anticipated discharge: Home with Homehealth Within: within 24 hours - Inpatient Certification Based on my medical assessment, after consideration of the patient's comorbidities, presenting symptoms, or acuity I expect that the services needed warrant INPATIENT care.: Yes I certify that my determination is in accordance with my understanding of Medicare's requirements for reasonable and necessary INPATIENT services [42 CFR 412.3e].: Yes
[2017-08-16] MEDS: VANCOMYCIN HCL 1,500 MG in DEXTROSE 5%-WATER 250 ML IV SCH (14:58)
[2017-08-16] MEDS: MONTELUKAST SODIUM 10 MG TABLET PO SCH (18:23)
[2017-08-16] MEDS: IPRATROPIUM/ALBUTEROL 0.5-2.5 MG/3 ML AMPUL NEB PRN (21:00)
[2017-08-16] MEDS: WARFARIN SODIUM 5 MG TABLET PO SCH (21:56)
[2017-08-17] MEDS: CEFEPIME 2 GM/D5W RTU 2 GM/50 ML RTUPB IV SCH ×2 (06:17→17:17)
[2017-08-17] MEDS: METHYLPREDNISOLONE INJ 40 MG/1 ML SDV IV SCH ×3 (06:17→22:45)
[2017-08-17] MEDS: LANSOPRAZOLE 30 MG TAB.RAP.DR PO SCH (06:17)
[2017-08-17 06:30] LABS: ABSOLUTE LYMPHOCYTES (AUTO) 0.6 10^3/uL (0.5-4.7); ABSOLUTE MONOCYTES (AUTO) 0.2 10^3/uL (0.1-1.4); ABSOLUTE NEUT (AUTO) 5.7 10^3/uL (1.7-8.2); BASOPHILS % (AUTO) 0.3 % (0-2); HEMATOCRIT 38.6 % (36.0-47.0); HEMOGLOBIN 12.4 g/dL (12.0-15.5); LYMPHOCYTES % (AUTO) 9.8 % (13-45); MEAN CORPUSCULAR HEMOGLOBIN 27.3 pg (27.0-33.4); MEAN CORPUSCULAR HGB CONC 32.2 g/dL (32.0-36.0); MEAN CORPUSCULAR VOLUME 85 fl (80-97); MONOCYTES % (AUTO) 2.7 % (3-13); PLATELET COUNT 224 10^3/uL (150-450); RED BLOOD COUNT 4.56 10^6/uL (3.72-5.28); SEGMENTED NEUTROPHILS % (AUTO) 87.2 % (42-78); TOTAL CELLS COUNTED % (AUTO) 100 %; WHITE BLOOD COUNT 6.5 10^3/uL (4.0-10.5)
[2017-08-17 07:28] LABS: ALANINE AMINOTRANSFERASE 39 U/L (9-52); ALKALINE PHOSPHATASE 49 U/L (38-126); ANION GAP 9 (5-19); ASPARTATE AMINO TRANSFERASE 19 U/L (14-36); BILIRUBIN,DIRECT 0.3 mg/dL (0.0-0.4); BILIRUBIN,TOTAL 0.4 mg/dL (0.2-1.3); BLOOD UREA NITROGEN 26 mg/dL (7-20); CARBON DIOXIDE 34 mmol/L (22-30); CHLORIDE 100 mmol/L (98-107); GLUCOSE 153 mg/dL (75-110); POTASSIUM 4.1 mmol/L (3.6-5.0); SODIUM 143.1 mmol/L (137-145); TOTAL PROTEIN 5.5 g/dL (6.3-8.2)
[2017-08-17] MEDS: LEVALBUTEROL HCL NEB 1.25 MG/3 ML AMPUL NEB SCH (09:01)
[2017-08-17] MEDS: TIOTROPIUM BROMIDE DPI 5 CAP/KIT (18 MCG/CAP) IH SCH (10:12)
[2017-08-17] MEDS: LOSARTAN POTASSIUM 50 MG TABLET PO SCH (10:13)
[2017-08-17] MEDS: SOTALOL HCL 80 MG TABLET PO SCH ×2 (10:13→22:50)
[2017-08-17] MEDS: AMLODIPINE BESYLATE 10 MG TABLET PO SCH (10:14)
[2017-08-17] MEDS: PREDNISONE 5 MG TABLET PO SCH (10:14)
[2017-08-17] MEDS: GUAIFENESIN 600 MG TABLET.SA PO SCH ×2 (10:15→22:45)
[2017-08-17] MEDS: FOLIC ACID 1 MG TABLET PO SCH (10:15)
[2017-08-17] MEDS: CHOLECALCIFEROL (D3) 1,000 UNIT TABLET PO SCH (10:15)
[2017-08-17] MEDS: DOCUSATE SODIUM 100 MG CAPSULE PO SCH (10:15)
[2017-08-17] MEDS: CYANOCOBALAMIN (VITAMIN B-12) 1,000 MCG TABLET PO SCH (10:15)
--- NOTE | 2017-08-17 13:22 | PDOC PROGRESS REPORT ---
Subjective Progress Note for:: 08/17/17 Subjective:: Patient is seen resting in bed eating breakfast. She denies any chest pain, shortness of breath or dyspnea at rest. She continues to have a loose congested cough. She states it is improving. She denies any nausea, vomiting or abdominal pain. She is eating well. She denies any significant arthralgias or myalgias at the present time. She states occasionally she does have pain in her lower extremities. Remaining review of systems are negative. Reason For Visit: SEPSIS SECONDARY TO UTI/PNU Physical Exam Vital Signs: Temp Pulse Resp BP Pulse Ox 98.4 F 55 L 16 145/58 H 99 08/17/17 11:08 08/17/17 11:08 08/17/17 11:08 08/17/17 11:08 08/17/17 11:08 Intake & Output 08/16/17 08/17/17 08/18/17 06:59 06:59 06:59 Intake Total 2144 1453 418 Output Total 1400 1625 325 Balance 744 -172 93 Weight 98.1 kg 99.1 kg General appearance: PRESENT: no acute distress, obese, well-developed, well- nourished Head exam: PRESENT: atraumatic, normocephalic Eye exam: PRESENT: conjunctiva pink, EOMI, PERRLA. ABSENT: scleral icterus Ear exam: PRESENT: normal external ear exam Mouth exam: PRESENT: moist, tongue midline Neck exam: ABSENT: carotid bruit, JVD, lymphadenopathy, thyromegaly Respiratory exam: PRESENT: crackles - right bases, decreased breath sounds, symmetrical, unlabored. ABSENT: rales, rhonchi, wheezes Cardiovascular exam: PRESENT: RRR. ABSENT: diastolic murmur, rubs, systolic murmur Pulses: PRESENT: normal dorsalis pedis pul Vascular exam: PRESENT: normal capillary refill GI/Abdominal exam: PRESENT: normal bowel sounds, soft. ABSENT: distended, guarding, mass, organolmegaly, rebound, tenderness Rectal exam: PRESENT: deferred Extremities exam: PRESENT: full ROM, +1 edema - lower extremities. ABSENT: calf tenderness, clubbing, pedal edema Musculoskeletal exam: PRESENT: full ROM, normal inspection Neurological exam: PRESENT: alert, awake, oriented to person, oriented to place , oriented to time, oriented to situation, CN II-XII grossly intact. ABSENT: motor sensory deficit Psychiatric exam: PRESENT: appropriate affect, normal mood. ABSENT: homicidal ideation, suicidal ideation Skin exam: PRESENT: dry, intact, warm. ABSENT: cyanosis, rash Results Laboratory Results: 08/17/17 05:38 08/17/17 05:38 08/17/17 08/17/17 05:38 05:38 WBC 6.5 RBC 4.56 Hgb 12.4 Hct 38.6 MCV 85 MCH 27.3 MCHC 32.2 RDW 16.0 H Plt Count 224 Seg Neutrophils % 87.2 H Lymphocytes % 9.8 L Monocytes % 2.7 L Eosinophils % 0.0 Basophils % 0.3 Absolute Neutrophils 5.7 Absolute Lymphocytes 0.6 Absolute Monocytes 0.2 Absolute Eosinophils 0.0 Absolute Basophils 0.0 Sodium 143.1 Potassium 4.1 Chloride 100 Carbon Dioxide 34 H Anion Gap 9 BUN 26 H Creatinine 0.65 Est GFR ( Amer) > 60 Est GFR (Non-Af Amer) > 60 Glucose 153 H Calcium 9.0 Total Bilirubin 0.4 AST 19 ALT 39 Alkaline Phosphatase 49 Total Protein 5.5 L Albumin 3.0 L Impressions: Chest X-Ray 08/15/17 06:00 IMPRESSION: NO ACUTE RADIOGRAPHIC FINDING IN THE CHEST. Assessment & Plan - Diagnosis (1) Acute respiratory failure with hypoxia Is this a current diagnosis for this admission?: Yes Plan: Improving with current treatment. Continue IV antibiotics cultures pending. Continue nebulizer treatments (2) COPD (chronic obstructive pulmonary disease) Qualifiers: COPD type: unspecified COPD Qualified Code(s): J44.9 - Chronic obstructive pulmonary disease, unspecified Is this a current diagnosis for this admission?: Yes Plan: Sputum culture positive for Pseudomonas (3) Pneumonia Qualifiers: Pneumonia type: due to unspecified organism Laterality: unspecified laterality Lung location: unspecified part of lung Qualified Code(s): J18.9 - Pneumonia, unspecified organism Is this a current diagnosis for this admission?: Yes Plan: Continue IV antibiotics. Sputum culture positive for Pseudomonas. (4) Sepsis Qualifiers: Sepsis type: sepsis due to unspecified organism Qualified Code(s): A41.9 - Sepsis, unspecified organism Is this a current diagnosis for this admission?: Yes Plan: Tachycardia and hypotensive have resolved. Continue current regimen. (5) Acute cystitis with hematuria Is this a current diagnosis for this admission?: Yes Plan: Urine culture positive for E. coli. (6) Atrial fibrillation Qualifiers: Atrial fibrillation type: paroxysmal Qualified Code(s): I48.0 - Paroxysmal atrial fibrillation Is this a current diagnosis for this admission?: Yes Plan: She is rate controlled on current medications. (7) DVT (deep venous thrombosis) Is this a current diagnosis for this admission?: Yes - Time Time Spent with patient: 25-34 minutes Total Critical Time (Minutes): 20 Anticipated discharge: Acute Rehab Within: when bed available - Inpatient Certification Based on my medical assessment, after consideration of the patient's comorbidities, presenting symptoms, or acuity I expect that the services needed warrant INPATIENT care.: Yes I certify that my determination is in accordance with my understanding of Medicare's requirements for reasonable and necessary INPATIENT services [42 CFR 412.3e].: Yes Medical Necessity: Need for Nebulizer Therapy and Monitoring of Response, Need for IV Antibiotics
[2017-08-17 14:56] LABS: VANCOMYCIN,TROUGH 9.4 ug/mL (5.0-20.0)
[2017-08-17] MEDS: MONTELUKAST SODIUM 10 MG TABLET PO SCH (17:17)
[2017-08-17] MEDS: WARFARIN SODIUM 5 MG TABLET PO SCH (22:45)
[2017-08-18] MEDS ORDERED: TRAMADOL HCL 50 MG TABLET PO PRN (07:26)
[2017-08-18 07:28] LABS: HEMATOCRIT 36.6 % (36.0-47.0); HEMOGLOBIN 11.6 g/dL (12.0-15.5); MEAN CORPUSCULAR HEMOGLOBIN 27.3 pg (27.0-33.4); MEAN CORPUSCULAR HGB CONC 31.8 g/dL (32.0-36.0); MEAN CORPUSCULAR VOLUME 86 fl (80-97); PLATELET COUNT 254 10^3/uL (150-450); RED BLOOD COUNT 4.27 10^6/uL (3.72-5.28); RED CELL DISTRIBUTION WIDTH 16.1 % (11.5-14.0)
[2017-08-18 07:58] LABS: ALANINE AMINOTRANSFERASE 32 U/L (9-52); ALBUMIN 2.8 g/dL (3.5-5.0); ALKALINE PHOSPHATASE 46 U/L (38-126); ANION GAP 8 (5-19); ASPARTATE AMINO TRANSFERASE 14 U/L (14-36); BILIRUBIN,DIRECT 0.2 mg/dL (0.0-0.4); BILIRUBIN,TOTAL 0.3 mg/dL (0.2-1.3); BLOOD UREA NITROGEN 30 mg/dL (7-20); CALCIUM 8.8 mg/dL (8.4-10.2); CARBON DIOXIDE 34 mmol/L (22-30); CHLORIDE 100 mmol/L (98-107); GLUCOSE 150 mg/dL (75-110); POTASSIUM 4.6 mmol/L (3.6-5.0); SODIUM 141.9 mmol/L (137-145); TOTAL PROTEIN 5.3 g/dL (6.3-8.2)
[2017-08-18] MEDS: CEFEPIME 2 GM/D5W RTU 2 GM/50 ML RTUPB IV SCH ×2 (08:05→18:17)
[2017-08-18] MEDS: METHYLPREDNISOLONE INJ 40 MG/1 ML SDV IV SCH ×3 (08:05→22:13)
[2017-08-18] MEDS: LANSOPRAZOLE 30 MG TAB.RAP.DR PO SCH (08:05)
[2017-08-18 08:23] LABS: ABSOLUTE LYMPHOCYTES# (MANUAL) 0.4 10^3/uL (0.5-4.7); ABSOLUTE MONOCYTES # (MANUAL) 0.3 10^3/uL (0.1-1.4); ABSOLUTE NEUTROPHILS# (MANUAL) 6.4 10^3/uL (1.7-8.2); BAND NEUTROPHILS % (MANUAL) 2 % (3-5); BASOPHILS % (MANUAL) 0 % (0-2); EOSINOPHILS % (MANUAL) 0 % (0-6); LYMPHOCYTES % (MANUAL) 5 % (13-45); MONOCYTES % (MANUAL) 4 % (3-13); PLATELET COMMENT ADEQUATE; PLATELET LARGE PRESENT; SEGMENTED NEUTROPHILS % (MAN) 89 % (42-78); TOTAL CELLS COUNTED 100
[2017-08-18 08:24] LABS: PLATELET GIANT PRESENT
[2017-08-18] MEDS: LEVALBUTEROL HCL NEB 1.25 MG/3 ML AMPUL NEB SCH (08:45)
[2017-08-18] MEDS: LOSARTAN POTASSIUM 50 MG TABLET PO SCH (10:48)
[2017-08-18] MEDS: AMLODIPINE BESYLATE 10 MG TABLET PO SCH (10:49)
[2017-08-18] MEDS: PREDNISONE 5 MG TABLET PO SCH (10:49)
[2017-08-18] MEDS: SOTALOL HCL 80 MG TABLET PO SCH ×2 (10:49→22:13)
[2017-08-18] MEDS: TIOTROPIUM BROMIDE DPI 5 CAP/KIT (18 MCG/CAP) IH SCH (10:50)
[2017-08-18] MEDS: FOLIC ACID 1 MG TABLET PO SCH (10:50)
[2017-08-18] MEDS: CYANOCOBALAMIN (VITAMIN B-12) 1,000 MCG TABLET PO SCH (11:48)
[2017-08-18] MEDS: GUAIFENESIN 600 MG TABLET.SA PO SCH ×2 (11:48→22:13)
[2017-08-18] MEDS: CHOLECALCIFEROL (D3) 1,000 UNIT TABLET PO SCH (11:49)
[2017-08-18] MEDS: DOCUSATE SODIUM 100 MG CAPSULE PO SCH (11:49)
[2017-08-18] MEDS ORDERED: ONDANSETRON HCL INJ/PF 4 MG/2 ML SDV IV PRN (16:14)
--- NOTE | 2017-08-18 16:26 | PDOC PROGRESS REPORT ---
Subjective Progress Note for:: 08/18/17 Subjective:: Pt is doing well, though she still has some residual cough, but she is no longer having dyspnea or wheezes. She has not been to get up and move around. She has agreed for acute REHAB at [facility]. She has been accepted at [facility] and be transferred there tomorrow. Reason For Visit: SEPSIS SECONDARY TO UTI/PNU Physical Exam Vital Signs: Temp Pulse Resp BP Pulse Ox 98.7 F 61 16 165/60 H 99 08/18/17 07:58 08/18/17 14:00 08/18/17 08:45 08/18/17 07:58 08/18/17 08:45 Intake & Output 08/17/17 08/18/17 08/19/17 06:59 06:59 06:59 Intake Total 1453 1527 Output Total 1625 1250 Balance -172 277 Weight 99.1 kg 98.6 kg General appearance: PRESENT: no acute distress, cooperative, well-developed, well-nourished Head exam: PRESENT: atraumatic, normocephalic Eye exam: PRESENT: EOMI, PERRLA Ear exam: PRESENT: normal external ear exam, TM's normal bilaterally Mouth exam: PRESENT: moist, neck supple, tongue midline Respiratory exam: PRESENT: decreased breath sounds, symmetrical Cardiovascular exam: PRESENT: irregular rhythm, +S1, +S2 Pulses: PRESENT: +2 pedal pulses bilateral GI/Abdominal exam: PRESENT: normal bowel sounds, soft Rectal exam: PRESENT: deferred Neurological exam: PRESENT: alert, awake, oriented to time Psychiatric exam: PRESENT: normal mood Results Laboratory Results: 08/18/17 06:34 08/18/17 06:34 08/18/17 08/18/17 06:34 06:34 WBC 7.0 RBC 4.27 Hgb 11.6 L Hct 36.6 MCV 86 MCH 27.3 MCHC 31.8 L RDW 16.1 H Plt Count 254 Seg Neutrophils % Not Reportable Lymphocytes % Not Reportable Monocytes % Not Reportable Eosinophils % Not Reportable Basophils % Not Reportable Absolute Neutrophils Not Reportable Absolute Lymphocytes Not Reportable Absolute Monocytes Not Reportable Absolute Eosinophils Not Reportable Absolute Basophils Not Reportable Sodium 141.9 Potassium 4.6 Chloride 100 Carbon Dioxide 34 H Anion Gap 8 BUN 30 H Creatinine 0.63 Est GFR ( Amer) > 60 Est GFR (Non-Af Amer) > 60 Glucose 150 H Calcium 8.8 Total Bilirubin 0.3 AST 14 ALT 32 Alkaline Phosphatase 46 Total Protein 5.3 L Albumin 2.8 L Impressions: Chest X-Ray 08/15/17 06:00 IMPRESSION: NO ACUTE RADIOGRAPHIC FINDING IN THE CHEST. Assessment & Plan - Diagnosis (1) Acute respiratory failure with hypoxia Is this a current diagnosis for this admission?: Yes Plan: Ct with oxygen byy N/C 2 L/min to keep saturation >92%; Cefepime 2 g q12h IV; Vancomycin IV as per OM protocol; Solumedrol 40 mg q12H; Duonebs q4h prn; Xopenex 1.25 mg q6h . (2) Sepsis Qualifiers: Sepsis type: sepsis due to unspecified organism Qualified Code(s): A41.9 - Sepsis, unspecified organism Is this a current diagnosis for this admission?: Yes (3) COPD (chronic obstructive pulmonary disease) Qualifiers: COPD type: unspecified COPD Qualified Code(s): J44.9 - Chronic obstructive pulmonary disease, unspecified Is this a current diagnosis for this admission?: Yes Plan: Ct with oxygen by N/C 2 L/min, Solumedrol 40 mg q12h IV, Duonebs q4h prn; Xopenex nebx 1.25 mg q6h; Spiriva 18 mcg daily. (4) Pneumonia Qualifiers: Pneumonia type: due to unspecified organism Laterality: unspecified laterality Lung location: unspecified part of lung Qualified Code(s): J18.9 - Pneumonia, unspecified organism Is this a current diagnosis for this admission?: Yes Plan: Ct with Cefepime 2 g Q12H IV; Vancomycin IV as per OM protocol; Mucinex 600 mg BID po; Tylenol 650 mg q4h po prn. (5) Urinary tract infection Qualifiers: Urinary tract infection type: site unspecified Is this a current diagnosis for this admission?: Yes Plan: Ct with Cefepime 2 g Q12H IV; Vancomycin IV as per OM protocol; Tylenol 650 mg q6h po prn. (6) Atrial fibrillation Qualifiers: Atrial fibrillation type: paroxysmal Qualified Code(s): I48.0 - Paroxysmal atrial fibrillation Is this a current diagnosis for this admission?: Yes Plan: Ct with Warfarin 5 mg qd po; Sotalol 40 mg BID pO; f/u daily PT/INR. (7) Hypertension Qualifiers: Hypertension type: essential hypertension Qualified Code(s): I10 - Essential (primary) hypertension Is this a current diagnosis for this admission?: Yes Plan: Ct with Losartan 100 mg qd po; Amlodipine 10 mg qd po; 2 g sodium diet. (8) Rheumatoid arthritis Qualifiers: Rheumatoid arthritis location: multiple sites Is this a current diagnosis for this admission?: Yes Plan: Ct with Methotrexate 7.5 mg q weekly po; Folic acid 1 mg qd po; Prednisone 2.5 mg qd po. (9) Reflux esophagitis Is this a current diagnosis for this admission?: Yes Plan: Ct with Prevacid 30 m g qd po. (10) Gout Is this a current diagnosis for this admission?: Yes Plan: Ct with Allopurinol 100 mg qd po. (11) Obstructive sleep apnea Is this a current diagnosis for this admission?: Yes Plan: Ct with CPAP. (12) Osteoarthritis Is this a current diagnosis for this admission?: Yes Plan: Ct with Tramadol/Tylenol 37.5/325 1 q8h prn po. (13) DVT prophylaxis Is this a current diagnosis for this admission?: Yes Plan: Ct with SC; pt is already on warfarin 5 mg qd po.
[2017-08-18] MEDS: MONTELUKAST SODIUM 10 MG TABLET PO SCH (18:17)
[2017-08-18] MEDS: WARFARIN SODIUM 5 MG TABLET PO SCH (22:13)
[2017-08-19] MEDS: CEFEPIME 2 GM/D5W RTU 2 GM/50 ML RTUPB IV SCH ×2 (05:20→17:36)
[2017-08-19] MEDS: LANSOPRAZOLE 30 MG TAB.RAP.DR PO SCH (05:20)
[2017-08-19 05:51] LABS: ABSOLUTE EOSINOPHILS # (AUTO) 0.2 10^3/uL (0.0-0.6); ABSOLUTE LYMPHOCYTES (AUTO) 0.8 10^3/uL (0.5-4.7); ABSOLUTE MONOCYTES (AUTO) 0.3 10^3/uL (0.1-1.4); ABSOLUTE NEUT (AUTO) 7.5 10^3/uL (1.7-8.2); BASOPHILS % (AUTO) 0.3 % (0-2); EOSINOPHILS % (AUTO) 1.7 % (0-6); HEMATOCRIT 39.1 % (36.0-47.0); HEMOGLOBIN 12.3 g/dL (12.0-15.5); LYMPHOCYTES % (AUTO) 9.1 % (13-45); MEAN CORPUSCULAR HEMOGLOBIN 26.8 pg (27.0-33.4); MEAN CORPUSCULAR HGB CONC 31.3 g/dL (32.0-36.0); MEAN CORPUSCULAR VOLUME 86 fl (80-97); MONOCYTES % (AUTO) 3.7 % (3-13); PLATELET COUNT 263 10^3/uL (150-450); RED BLOOD COUNT 4.58 10^6/uL (3.72-5.28); RED CELL DISTRIBUTION WIDTH 16.3 % (11.5-14.0); SEGMENTED NEUTROPHILS % (AUTO) 85.2 % (42-78); TOTAL CELLS COUNTED % (AUTO) 100 %; WHITE BLOOD COUNT 8.8 10^3/uL (4.0-10.5)
[2017-08-19 06:12] LABS: ALANINE AMINOTRANSFERASE 34 U/L (9-52); ALBUMIN 2.9 g/dL (3.5-5.0); ALKALINE PHOSPHATASE 46 U/L (38-126); ANION GAP 7 (5-19); ASPARTATE AMINO TRANSFERASE 18 U/L (14-36); BILIRUBIN,DIRECT 0.3 mg/dL (0.0-0.4); BILIRUBIN,TOTAL 0.4 mg/dL (0.2-1.3); BLOOD UREA NITROGEN 39 mg/dL (7-20); CALCIUM 9.1 mg/dL (8.4-10.2); CARBON DIOXIDE 34 mmol/L (22-30); CHLORIDE 99 mmol/L (98-107); GLUCOSE 182 mg/dL (75-110); SODIUM 140.1 mmol/L (137-145); TOTAL PROTEIN 5.4 g/dL (6.3-8.2)
[2017-08-19] MEDS: LEVALBUTEROL HCL NEB 1.25 MG/3 ML AMPUL NEB SCH (08:32)
[2017-08-19] MEDS: METHYLPREDNISOLONE INJ 40 MG/1 ML SDV IV SCH (11:15)
[2017-08-19] MEDS: AMLODIPINE BESYLATE 10 MG TABLET PO SCH (11:15)
[2017-08-19] MEDS: LOSARTAN POTASSIUM 50 MG TABLET PO SCH (11:16)
[2017-08-19] MEDS: GUAIFENESIN 600 MG TABLET.SA PO SCH (11:16)
[2017-08-19] MEDS: DOCUSATE SODIUM 100 MG CAPSULE PO SCH (11:18)
[2017-08-19] MEDS: FOLIC ACID 1 MG TABLET PO SCH (11:18)
[2017-08-19] MEDS: SOTALOL HCL 80 MG TABLET PO SCH (11:18)
[2017-08-19] MEDS: CHOLECALCIFEROL (D3) 1,000 UNIT TABLET PO SCH (13:34)
[2017-08-19] MEDS: CYANOCOBALAMIN (VITAMIN B-12) 1,000 MCG TABLET PO SCH (13:35)
[2017-08-19] MEDS: PREDNISONE 5 MG TABLET PO SCH (13:35)
--- NOTE | 2017-08-19 13:45 | PDOC TRANSFER SUMMARY ---
General - Admit/Disc Date/PCP Admission Date/Primary Care Provider: 08/12/17 01:34 ONUR CAMPO Discharge Date: 08/19/17 - Discharge Diagnosis (1) Acute respiratory failure with hypoxia Is this a current diagnosis for this admission?: Yes (2) Sepsis Is this a current diagnosis for this admission?: Yes (3) COPD (chronic obstructive pulmonary disease) Is this a current diagnosis for this admission?: Yes (4) Pneumonia Is this a current diagnosis for this admission?: Yes (5) Urinary tract infection Is this a current diagnosis for this admission?: Yes (6) Atrial fibrillation Is this a current diagnosis for this admission?: Yes (7) Hypertension Is this a current diagnosis for this admission?: Yes (8) Rheumatoid arthritis Is this a current diagnosis for this admission?: Yes (9) Reflux esophagitis Is this a current diagnosis for this admission?: Yes (10) Gout Is this a current diagnosis for this admission?: Yes (11) Obstructive sleep apnea Is this a current diagnosis for this admission?: Yes (12) Osteoarthritis Is this a current diagnosis for this admission?: Yes (13) DVT prophylaxis Is this a current diagnosis for this admission?: Yes - Additional Information Home Medications: Amlodipine Besylate [Norvasc 5 mg Tablet] 5 mg PO DAILY 08/12/17 Cholecalciferol (Vitamin D3) [D3-2000] 2,000 unit PO DAILY 08/12/17 Cyanocobalamin (Vitamin B-12) [Vitamin B-12 1000 mcg Tablet] 1,000 mcg PO DAILY 08/12/17 Folic Acid [Folvite 1 mg Tablet] 1 mg PO DAILY 08/12/17 Lansoprazole [Prevacid] 30 mg PO ACBRKFST 08/12/17 Losartan Potassium [Cozaar 100 mg Tablet] 100 mg PO DAILY 08/12/17 Methotrexate Sodium [Methotrexate] 7.5 mg PO FR@1000 08/12/17 Montelukast Sodium [Singulair 10 mg Tablet] 10 mg PO QPM 08/12/17 Prednisone 2.5 mg PO DAILY 08/12/17 Sotalol HCl [Sotalol] 40 mg PO Q12 08/12/17 Tramadol HCl/Acetaminophen [Tramadol-Acetaminophn 37.5-325] 1 tab PO Q8HP PRN Warfarin Sodium [Coumadin 5 mg Tablet] 5 mg PO DAILY 08/12/17 History of Present Illness Admission Date/PCP: 08/12/17 01:34 ONUR CAMPO History of Present Illness: MAEGAN NARAYAN is a 82 year old female with hx of HTN/Hyperlipidemia/COPD/ Asthma/GERD/A-fib/Rheumatoid arthritis/Gout/SOBEIDA on CPAP/Recurrent syncope on implantable monitor/Osteoarthritis/Obesity, who has been having cough, fever, dyspnea, wheezes,weakness for about 1 week. She was given Keflex and later Azithromycin. She has not been able to get up from her seat for 4 days due to deconditioning. Her niece called EMS and she was brought to ER. Her temperature at ER was 101.9; her oxygen saturation was 85% on room air. Hospital Course Hospital Course: 82 year old woman who was admitted to [facility] for acute hypoxic respiratory failure secondary to COPD/Rafia exacerbation/Pneumonia; Sepsis secondary to UTI and Pneumonia. She was initially on Rocephin and Azithromycin IV, but was later switched to IV Cefepime and Vancomycin based on sputum, urine and blood culture sensitivity results. She was also on Solumedrol IV and Nebulizers. She has done very well, but she has deconditioning and will benefit from short term REHAB based on PT/OT recommendations. She was accepted at [facility] for short term REHAB and will be transferred there today. Patient is in agreement with this plan of care. Physical Exam Vital Signs: Temp Pulse Resp BP Pulse Ox 98.5 F 62 17 143/62 H 100 08/19/17 11:40 08/19/17 11:40 08/19/17 11:40 08/19/17 11:40 08/19/17 11:40 Intake & Output 08/18/17 08/19/17 08/20/17 06:59 06:59 06:59 Intake Total 1527 1269 318 Output Total 1250 1275 200 Balance 277 -6 118 Weight 98.6 kg 98.1 kg General appearance: PRESENT: no acute distress, cooperative, obese, well- developed, well-nourished Head exam: PRESENT: atraumatic, normocephalic Eye exam: PRESENT: EOMI, PERRLA Ear exam: PRESENT: normal external ear exam, TM's normal bilaterally Mouth exam: PRESENT: moist, neck supple, tongue midline Neck exam: PRESENT: full ROM Respiratory exam: PRESENT: decreased breath sounds, symmetrical Cardiovascular exam: PRESENT: irregular rhythm, +S1, +S2 Pulses: PRESENT: +1 pedal pulses bilateral GI/Abdominal exam: PRESENT: normal bowel sounds, soft Rectal exam: PRESENT: deferred Neurological exam: PRESENT: alert, awake, oriented to person, oriented to place , oriented to time Psychiatric exam: PRESENT: normal mood Results Laboratory Results: 08/19/17 05:35 08/19/17 05:35 08/19/17 08/19/17 05:35 05:35 WBC 8.8 RBC 4.58 Hgb 12.3 Hct 39.1 MCV 86 MCH 26.8 L MCHC 31.3 L RDW 16.3 H Plt Count 263 Seg Neutrophils % 85.2 H Lymphocytes % 9.1 L Monocytes % 3.7 Eosinophils % 1.7 Basophils % 0.3 Absolute Neutrophils 7.5 Absolute Lymphocytes 0.8 Absolute Monocytes 0.3 Absolute Eosinophils 0.2 Absolute Basophils 0.0 Sodium 140.1 Potassium 5.0 Chloride 99 Carbon Dioxide 34 H Anion Gap 7 BUN 39 H Creatinine 0.59 Est GFR ( Amer) > 60 Est GFR (Non-Af Amer) > 60 Glucose 182 H Calcium 9.1 Total Bilirubin 0.4 AST 18 ALT 34 Alkaline Phosphatase 46 Total Protein 5.4 L Albumin 2.9 L Impressions: Chest X-Ray 08/15/17 06:00 IMPRESSION: NO ACUTE RADIOGRAPHIC FINDING IN THE CHEST. Transfer Plan - Time Spent with Patient Time spent with patient: Greater than 30 Minutes Qualifiers - * PATIENT BEING DISCHARGED WITH ANY OF THE FOLLOWING DIAGNOSIS: No
[2017-08-19 16:08] VITALS: BP 149/72
[2017-08-19] MEDS: MONTELUKAST SODIUM 10 MG TABLET PO SCH (17:35)
[2017-08-19] MEDS: TIOTROPIUM BROMIDE DPI 5 CAP/KIT (18 MCG/CAP) IH SCH (17:35)
== END 2017-08-19 19:39 | DRG 871 ==
LOC: ER 21:35 → EH 08-12 01:34 → 3S 08-12 18:16
PROVIDERS: ADMIT Internal Medicine; ATTEND Internal Medicine
DX: A41.9 Sepsis, unspecified organism (principal); J18.9 Pneumonia, unspecified organism; J96.01 Acute respiratory failure with hypoxia; N39.0 Urinary tract infection, site not specified; J44.1 Chronic obstructive pulmonary disease with (acute) exacerbation; I48.0 Paroxysmal atrial fibrillation; I10 Essential (primary) hypertension; E78.5 Hyperlipidemia, unspecified; K21.0 Gastro-esophageal reflux disease with esophagitis; E11.51 Type 2 diabetes mellitus with diabetic peripheral angiopathy without gangrene; M06.9 Rheumatoid arthritis, unspecified; M19.90 Unspecified osteoarthritis, unspecified site; M10.9 Gout, unspecified; B96.20 Unspecified Escherichia coli [E. coli] as the cause of diseases classified elsewhere; Z60.2 Problems related to living alone; Z79.01 Long term (current) use of anticoagulants; Z87.891 Personal history of nicotine dependence; Z91.14 Patient's other noncompliance with medication regimen
CPT/HCPCS: 36415; 71045; 80053; 80061; 80202; 81001; 82550; 82565; 82803; 82962; 83605; 83880; 84443; 84484; 85025; 85027; 85610; 87040; 87070; 87077; 87086; 87088; 87186; 87205; 87493; 93005; 93010; 94640; 96361; 96365; 96375; 99285; G8978-GP; G8979-GP; J0456; J0692; J0696; J1956; J2405; J2920; J2930; J3370; J3490; J7060; J7120; J7512; J7620; J8610

== ENCOUNTER 2018-08-28 19:41 | Observation (INO) | payer MEDICARE, OTHER ==
--- NOTE | 2018-08-28 20:05 | ER Document Report ---
ED General - General Stated Complaint: CHEST PRESSURE Time Seen by Provider: 08/28/18 20:01 Primary Care Provider: JOSE DE JESUS ADAIR [NO LOCAL MD] - Follow up as needed Mode of Arrival: Medic Information source: Patient Notes: 83-year-old woman with a history of hypertension, A. fib (Coumadin), COPD who was brought in by EMS because of chest pressure while she was having an argument with her son. EMS did give the patient 1 sublingual nitroglycerin and the pain went away. TRAVEL OUTSIDE OF THE [place] IN LAST 30 DAYS: No - HPI Onset: Just prior to arrival Onset/Duration: Sudden Quality of pain: Dull Severity: Moderate Pain Level: 3 Associated symptoms: Chest pain, Shortness of breath Exacerbated by: Other - Occurred during an argument Relieved by: Other - Nitroglycerin Similar symptoms previously: No Recently seen / treated by doctor: No - Related Data Allergies/Adverse Reactions: Penicillins Allergy (Verified 08/12/17 01:06) Past Medical History - General Information source: Patient - Social History Smoking Status: Never Smoker Cigarette use (# per day): No Chew tobacco use (# tins/day): No Frequency of alcohol use: None Drug Abuse: None Lives with: Family Family History: Reviewed & Not Pertinent Patient has suicidal ideation: No Patient has homicidal ideation: No - Past Medical History Cardiac Medical History: Reports: Hx Atrial Fibrillation - intermittent, Hx Congestive Heart Failure, Hx DVT, Hx Hypercholesterolemia, Hx Hypertension, Hx Peripheral Vascular Disease Pulmonary Medical History: Reports: Hx Asthma, Hx COPD Endocrine Medical History: Reports: Hx Diabetes Mellitus Type 2 Renal/ Medical History: Denies: Hx Peritoneal Dialysis GI Medical History: Reports: Hx Gastroesophageal Reflux Disease Musculoskeletal Medical History: Reports Hx Arthritis - RA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, Reports Hx Musculoskeletal Deformity, Reports Hx Musculoskeletal Trauma Psychiatric Medical History: Denies: Hx Depression Past Surgical History: Reports: 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, Hx Cholecystectomy, Hx Hysterectomy, Hx Tonsillectomy - Immunizations Hx Diphtheria, Pertussis, Tetanus Vaccination: Yes Hx Pneumococcal Vaccination: 03/17/12 Review of Systems - Review of Systems Constitutional: denies: Chills, Fever EENT: No symptoms reported Cardiovascular: See HPI Respiratory: No symptoms reported Gastrointestinal: No symptoms reported Genitourinary: No symptoms reported Female Genitourinary: No symptoms reported Musculoskeletal: No symptoms reported Skin: No symptoms reported Hematologic/Lymphatic: No symptoms reported Neurological/Psychological: No symptoms reported Physical Exam - Vital signs Vitals: Resp Pulse Ox 15 92 08/28/18 19:50 08/28/18 19:50 Notes: Physical exam: GENERAL: She is alert and oriented x3, no acute distress HEAD: Atraumatic, normocephalic. EYES: Pupils equal round and reactive to light, extraocular movements intact, sclera anicteric, conjunctiva are normal. ENT: TMs normal, nares patent, oropharynx clear without exudates. Moist mucous membranes. NECK: Normal range of motion, supple without obvious mass or JVD. LUNGS: Breath sounds clear to auscultation bilaterally and equal. No wheezes rales or rhonchi. HEART: Regular rate and rhythm without murmurs, rubs or gallops. ABDOMEN: Soft, normoactive bowel sounds. No tenderness to palpation. No guarding, no rebound. No masses appreciated. EXTREMITIES: Normal range of motion, no pitting or edema. No clubbing or cyanosis. NEUROLOGICAL: Cranial nerves II through XII grossly intact. Normal speech, moving all extremities. PSYCH: Normal mood, normal affect. SKIN: Warm, Dry, normal turgor, no rashes or lesions noted. Course - Vital Signs Vital signs: Temp Pulse Resp BP Pulse Ox 98.2 F 62 15 125/62 95 08/28/18 20:13 08/28/18 20:13 08/28/18 21:01 08/28/18 21:01 08/28/18 21:01 - Laboratory Result Diagrams: 08/28/18 20:15 08/28/18 20:15 Laboratory results interpreted by me: 08/28/18 08/28/18 08/28/18 20:15 20:15 20:15 Hgb 11.3 L MCH 26.0 L MCHC 31.2 L RDW 18.4 H PT 25.3 H Carbon Dioxide 32 H Glucose 121 H Total Protein 6.1 L - Diagnostic Test Radiology reviewed: Image reviewed, Reports reviewed - Patient has some atelectasis in the right base. She has not had any fever, cough or congestion to suggest pneumonia. - EKG Interpretation by Me Rate: Normal Rhythm: NSR - EKG shows normal sinus rhythm with a ventricular rate of 61, no acute ST-T wave changes Discharge - Discharge Clinical Impression: Chest pain Condition: Stable Disposition: ADMITTED OBSERVATION Admitting Provider: Alfredo (Hospitalist) Unit Admitted: Telemetry Referrals: MANA,JOSE DE JESUS [NO LOCAL MD] - Follow up as needed
[2018-08-28 20:32] LABS: ABSOLUTE BASOPHILS # (AUTO) 0.1 10^3/uL (0.0-0.2); ABSOLUTE EOSINOPHILS # (AUTO) 0.1 10^3/uL (0.0-0.6); ABSOLUTE LYMPHOCYTES (AUTO) 1.8 10^3/uL (0.5-4.7); ABSOLUTE MONOCYTES (AUTO) 0.6 10^3/uL (0.1-1.4); BASOPHILS % (AUTO) 1.2 % (0-2); EOSINOPHILS % (AUTO) 1.4 % (0-6); HEMATOCRIT 36.1 % (36.0-47.0); HEMOGLOBIN 11.3 g/dL (12.0-15.5); LYMPHOCYTES % (AUTO) 27.1 % (13-45); MEAN CORPUSCULAR HGB CONC 31.2 g/dL (32.0-36.0); MEAN CORPUSCULAR VOLUME 83 fl (80-97); PLATELET COUNT 266 10^3/uL (150-450); RED BLOOD COUNT 4.34 10^6/uL (3.72-5.28); RED CELL DISTRIBUTION WIDTH 18.4 % (11.5-14.0); SEGMENTED NEUTROPHILS % (AUTO) 61.3 % (42-78); TOTAL CELLS COUNTED % (AUTO) 100 %; WHITE BLOOD COUNT 6.5 10^3/uL (4.0-10.5)
[2018-08-28 20:38] LABS: INTERNATIONAL RATION (INR) 2.18; PROTHROMBIN TIME 25.3 SEC (11.4-15.4)
[2018-08-28 20:48] LABS: ALANINE AMINOTRANSFERASE 24 U/L (9-52); ALBUMIN 3.5 g/dL (3.5-5.0); ALKALINE PHOSPHATASE 80 U/L (38-126); ANION GAP 6 (5-19); ASPARTATE AMINO TRANSFERASE 18 U/L (14-36); BILIRUBIN,DIRECT 0.3 mg/dL (0.0-0.4); BILIRUBIN,TOTAL 0.4 mg/dL (0.2-1.3); BLOOD UREA NITROGEN 18 mg/dL (7-20); CALCIUM 8.9 mg/dL (8.4-10.2); CARBON DIOXIDE 32 mmol/L (22-30); CHLORIDE 101 mmol/L (98-107); CREATINE KINASE 35 U/L (30-135); GLUCOSE 121 mg/dL (75-110); POTASSIUM 4.3 mmol/L (3.6-5.0); SODIUM 139.2 mmol/L (137-145); TOTAL PROTEIN 6.1 g/dL (6.3-8.2)
[2018-08-28 21:01] LABS: CREATINE KINASE MB 0.31 ng/mL (<4.55)
[2018-08-28 21:05] LABS: TROPONIN I < 0.012 ng/mL
--- NOTE | 2018-08-28 21:11 | RADIOLOGY REPORT (SQ) ---
EXAM DESCRIPTION: XR CHEST 1 VIEW COMPLETED DATE/TME: 08/28/2018 20:02 CLINICAL HISTORY: 83 years, Female, chest pain COMPARISON: Multiple priors, most recent from 08/15/2017 NUMBER OF VIEWS: One TECHNIQUE: Single frontal view of the chest was obtained LIMITATIONS: None. FINDINGS: Cardiac and mediastinal contours are stable in appearance. Small right pleural effusion is evident along with right basilar opacity. Left lung is overall clear. No pneumothorax. IMPRESSION: Small right pleural effusion with associated right basilar opacity. Consider atelectasis or pneumonia to include aspiration. Suggest follow-up to clearing. copyright 2010 [employer]- All Rights Reserved
[2018-08-28] MEDS ORDERED: ACETAMINOPHEN 325 MG TABLET PO PRN (21:47)
[2018-08-28] MEDS ORDERED: NITROGLYCERIN 0.4 MG/TAB 25 TAB/BOTTLE SL PRN (21:47)
[2018-08-28] MEDS ORDERED: SOTALOL HCL 80 MG TABLET PO SCH (22:00)
[2018-08-28] MEDS ORDERED: SOTALOL HCL 80 MG TABLET PO ONE (23:30)
--- NOTE | 2018-08-29 05:24 | PDOC H&P ---
History of Present Illness Admission Date/PCP: 08/28/18 21:54 ONUR CMAPO Patient complains of: Chest pain History of Present Illness: MAEGAN NARAYAN is a 83 year old female with a past medical history of rheumatoid arthritis, nonambulatory state and severe debility, morbid obesity, obstructive sleep apnea with BiPAP noncompliance, coronary artery disease, atrial fibrillation on Coumadin. She presents to the emergency room after an argument with a family member with complaints of chest pressure EMS administered nitroglycerin which relieved the pain. Her pain was described as pressure, dullness 3 out of 5 intensity lasting approximately 90 minutes, Nonradiating. She denies recent change in medication regiment she is otherwise felt well. In the emergency room she is found to have right-sided atelectasis with minimal pleural effusion. She is referred to the hospitalist for observation. Patient is unable to recall her last cardiac stress testing but has recently seen Dr. Meza and Dr. Alexis. 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 Psychiatric Medical History: Denies: Depression Past Surgical History Past Surgical History: Reports: Cholecystectomy, Hysterectomy, Tonsillectomy Social History Information Source: Patient Lives with: Family Smoking Status: Never Smoker Frequency of Alcohol Use: None Hx Recreational Drug Use: No Drugs: None Hx Prescription Drug Abuse: No - Advance Directive Resuscitation Status: Full Code Family History Family History: Arthritis, Hypertension Parental Family History Reviewed: Yes Children Family History Reviewed: Yes Sibling(s) Family History Reviewed.: Yes Medication/Allergy Home Medications: Cholecalciferol (Vitamin D3) [D3-2000] 2,000 unit PO DAILY 08/12/17 Cyanocobalamin (Vitamin B-12) [Vitamin B-12 1000 mcg Tablet] 1,000 mcg PO DAILY 08/12/17 Folic Acid [Folvite 1 mg Tablet] 1 mg PO DAILY 08/12/17 Lansoprazole [Prevacid] 30 mg PO ACBRKFST 08/12/17 Losartan Potassium [Cozaar 100 mg Tablet] 100 mg PO DAILY 08/12/17 Methotrexate Sodium [Methotrexate] 7.5 mg PO FR@1000 08/12/17 Montelukast Sodium [Singulair 10 mg Tablet] 10 mg PO QPM 08/12/17 Prednisone 2.5 mg PO DAILY 08/12/17 Sotalol HCl [Sotalol] 40 mg PO Q12 08/12/17 Warfarin Sodium [Coumadin 5 mg Tablet] 5 mg PO DAILY 08/12/17 Albuterol Sulfate [Proair Hfa Inhalation Aerosol 8.5 gm Mdi] 2 puff IH Q6H PRN #1 mdi 08/19/17 Allopurinol [Zyloprim 100 mg Tablet] 100 mg PO DAILY #30 tablet 08/19/17 Amlodipine Besylate [Norvasc 10 mg Tablet] 10 mg PO DAILY tablet 08/19/17 Cefuroxime Axetil [Ceftin 500 mg Tablet] 1 tab PO BID 7 Days #14 tablet 08/19/17 Docusate Sodium [Colace 100 mg Capsule] 100 mg PO DAILY capsule 08/19/17 Guaifenesin [Mucinex Sr 600 mg Tablet.sa] 600 mg PO Q12 tablet.sa 08/19/17 Ipratropium/Albuterol Sulfate [Duoneb 3 ml Ampul] 3 ml NEB Q6H PRN vial.neb 08/19/17 Tiotropium [place] [Spiriva Handihaler 5 Cap/Kit (18 Mcg/Cap)] 1 cap IH DAILY kit 08/19/17 Tramadol HCl/Acetaminophen [Tramadol-Acetaminophn 37.5-325] 1 tab PO Q8HP PRN #90 08/19/17 Allergies/Adverse Reactions: Penicillins Allergy (Verified 08/12/17 01:06) Review of Systems Constitutional: ABSENT: chills, fever(s), headache(s), weight gain, weight loss Eyes: ABSENT: visual disturbances Ears: ABSENT: hearing changes Cardiovascular: ABSENT: chest pain, dyspnea on exertion, edema, orthropnea, palpitations Respiratory: ABSENT: cough, hemoptysis Gastrointestinal: ABSENT: abdominal pain, constipation, diarrhea, hematemesis, hematochezia, nausea, vomiting Genitourinary: ABSENT: dysuria, hematuria Musculoskeletal: ABSENT: joint swelling Integumentary: ABSENT: rash, wounds Neurological: ABSENT: abnormal gait, abnormal speech, confusion, dizziness, focal weakness, syncope Psychiatric: ABSENT: anxiety, depression, homidical ideation, suicidal ideation Endocrine: ABSENT: cold intolerance, heat intolerance, polydipsia, polyuria Hematologic/Lymphatic: ABSENT: easy bleeding, easy bruising Physical Exam Vital Signs: Temp Pulse Resp BP Pulse Ox 98.1 F 62 18 128/46 H 90 L 08/29/18 03:58 08/29/18 03:58 08/29/18 03:58 08/29/18 03:58 08/29/18 03:58 Intake & Output 08/27/18 08/28/18 08/29/18 11:59 11:59 11:59 Weight 113.4 kg General appearance: PRESENT: no acute distress, cooperative, morbidly obese, well-developed, well-nourished Head exam: PRESENT: atraumatic, normocephalic Eye exam: PRESENT: conjunctiva pink, EOMI, PERRLA. ABSENT: scleral icterus Ear exam: PRESENT: normal external ear exam Mouth exam: PRESENT: moist, tongue midline Neck exam: ABSENT: carotid bruit, JVD, lymphadenopathy, thyromegaly Respiratory exam: PRESENT: crackles, decreased breath sounds, symmetrical. ABSE NT: accessory muscle use, rales, rhonchi, wheezes Cardiovascular exam: PRESENT: RRR. ABSENT: diastolic murmur, rubs, systolic murmur Pulses: PRESENT: normal dorsalis pedis pul, +1 pedal pulses bilateral Vascular exam: PRESENT: normal capillary refill GI/Abdominal exam: PRESENT: normal bowel sounds, soft. ABSENT: distended, guarding, mass, organolmegaly, rebound, tenderness Rectal exam: PRESENT: deferred Extremities exam: PRESENT: full ROM, other - Chronic changes without open ulcer. ABSENT: calf tenderness, clubbing, pedal edema, +1 edema Neurological exam: PRESENT: alert, awake, oriented to person, oriented to place, oriented to time, oriented to situation, CN II-XII grossly intact. ABSENT: motor sensory deficit Psychiatric exam: PRESENT: appropriate affect, normal mood. ABSENT: homicidal ideation, suicidal ideation Skin exam: PRESENT: dry, intact, warm. ABSENT: cyanosis, rash Results Laboratory Results: 08/28/18 20:15 08/28/18 20:15 08/28/18 08/28/18 20:15 20:15 WBC 6.5 RBC 4.34 Hgb 11.3 L Hct 36.1 MCV 83 MCH 26.0 L MCHC 31.2 L RDW 18.4 H Plt Count 266 Seg Neutrophils % 61.3 Lymphocytes % 27.1 Monocytes % 9.0 Eosinophils % 1.4 Basophils % 1.2 Absolute Neutrophils 4.0 Absolute Lymphocytes 1.8 Absolute Monocytes 0.6 Absolute Eosinophils 0.1 Absolute Basophils 0.1 Sodium 139.2 Potassium 4.3 Chloride 101 Carbon Dioxide 32 H Anion Gap 6 BUN 18 Creatinine 0.77 Est GFR ( Amer) > 60 Est GFR (Non-Af Amer) > 60 Glucose 121 H Calcium 8.9 Total Bilirubin 0.4 AST 18 ALT 24 Alkaline Phosphatase 80 Total Protein 6.1 L Albumin 3.5 08/28/18 08/28/18 08/29/18 20:15 20:15 00:23 Creatine Kinase 35 CK-MB (CK-2) 0.31 Troponin I < 0.012 < 0.012 Impressions: Chest X-Ray 08/28/18 20:02 IMPRESSION: Small right pleural effusion with associated right basilar opacity. Consider atelectasis or pneumonia to include aspiration. Suggest follow-up to clearing. copyright 2010 [employer]- All Rights Reserved Assessment and Plan - Diagnosis (1) Chest pain Is this a current diagnosis for this admission?: Yes Plan: Chest pain care set deployed, follow-up cardiac enzymes, Cardiolite stress test. (2) Atelectasis Is this a current diagnosis for this admission?: Yes Plan: Incentive spirometry (3) Atrial fibrillation Qualifiers: Atrial fibrillation type: paroxysmal Qualified Code(s): I48.0 - Paroxysmal atrial fibrillation Is this a current diagnosis for this admission?: Yes Plan: Rate controlled continue Coumadin (4) Obstructive sleep apnea Is this a current diagnosis for this admission?: Yes Plan: Patient refuses BiPAP. Supplemental oxygen ordered. - Time Time Spent with patient: 25-34 minutes - Inpatient Certification Medical Necessity: Need Close Monitoring Due to Risk of Patient Decompensation
[2018-08-29 08:13] LABS: CREATINE KINASE MB 0.45 ng/mL (<4.55)
[2018-08-29 08:15] LABS: TROPONIN I < 0.012 ng/mL
[2018-08-29] MEDS: SOTALOL HCL 80 MG TABLET PO SCH ×2 (10:00→21:39)
[2018-08-29] MEDS: DOCUSATE SODIUM 100 MG CAPSULE PO SCH (10:48)
[2018-08-29] MEDS: AMLODIPINE BESYLATE 10 MG TABLET PO SCH (10:48)
[2018-08-29] MEDS: ALLOPURINOL 100 MG TABLET PO SCH (10:49)
[2018-08-29] MEDS: ASPIRIN 81 MG TABLET, ENT COATED PO SCH (10:49)
[2018-08-29] MEDS: LOSARTAN POTASSIUM 50 MG TABLET PO SCH (10:49)
--- NOTE | 2018-08-29 12:12 | EKG REPORT ---
SEVERITY:- BORDERLINE ECG - SINUS RHYTHM BORDERLINE R WAVE PROGRESSION, ANTERIOR LEADS : Confirmed by: Louisa Alexis MD 29-Aug-2018 12:12:07
--- NOTE | 2018-08-29 12:47 | RADIOLOGY REPORT (SQ) ---
EXAM DESCRIPTION: CT CHEST WITHOUT COMPLETED DATE/TIME: 08/29/2018 10:35 am REASON FOR STUDY: PAIN R07.9 CHEST PAIN, UNSPECIFIED COMPARISON: Chest radiograph 08/28/2018 TECHNIQUE: CT scan performed of the chest without intravenous contrast. Images reviewed with lung, soft tissue and bone windows. Reconstructed coronal and sagittal MPR images reviewed. All images st ored on PACS. All CT scanners at this facility use dose modulation, iterative reconstruction, and/or weight based d osing when appropriate to reduce radiation dose to as low as reasonably achievable (ALARA). [facility]: Dose Right [facility]: CareDose [facility]: Dose Right [facility]: Teradose 4D [facility]: [employer] RADIATION DOSE: CT Rad equipment meets quality standard of care and radiation dose reduction techniq ues were employed. CTDIvol: 20.9 mGy. DLP: 807 mGy-cm. mGy. LIMITATIONS: No technical limitations. FINDINGS: LUNGS AND PLEURA: Moderate right pleural effusion. Mild left pleural effusion. HILAR AND MEDIASTINAL STRUCTURES: Calcified mediastinal nodes. Mild vascular calcification. HEART AND VASCULAR STRUCTURES: Ascending aorta measures 3.9 cm. Aortic root calcification. UPPER ABDOMEN: No significant findings. Limited exam. THYROID AND OTHER SOFT TISSUES: No masses. No adenopathy. BONES: No significant finding. HARDWARE: None in the chest. OTHER: No other significant findings. IMPRESSION: Moderate right pleural effusion. Small left pleural. TECHNICAL DOCUMENTATION: JOB ID: [id number] Quality ID # [id number]: Final reports with documentation of one or more dose reduction techniques (e.g., Au tomated exposure control, adjustment of the mA and/or kV according to patient size, use of iterative reconstruction technique) 2010 [employer]- All Rights Reserved Reading location - IP/workstation name: [email or web address]
[2018-08-29] MEDS ORDERED: ALBUTEROL SULFATE HFA (90 MCG/PUFF) 200 PUFF/8.5 GM MDI IH PRN (13:13)
[2018-08-29 14:02] LABS: CREATINE KINASE MB 0.39 ng/mL (<4.55)
[2018-08-29 14:04] LABS: TROPONIN I < 0.012 ng/mL
--- NOTE | 2018-08-29 15:43 | PDOC PROGRESS REPORT ---
Subjective Progress Note for:: 08/29/18 Subjective:: This is an 83 yr old female with a PMH of RA, debility, morbid obesity SOBEIDA with noncompliance to therapy, CAD and paroxysmal AFib who was admitted for chest pain after having an argument with a family member. Chest x-ray shows right- sided atelectasis and pleural effusion. No acute event overnight. She has been chest pain-free. Upon encounter, she appears comfortable. She says she does have shortness of breath but cannot see if she has exertional dyspnea as she has been debilitated and says that she does not really ambulate at home. She currently saturating at 93-94% on room air. Reason For Visit: CHEST PAIN Physical Exam Vital Signs: Temp Pulse Resp BP Pulse Ox 98.3 F 67 18 123/56 L 94 08/29/18 08:08 08/29/18 08:08 08/29/18 03:58 08/29/18 08:08 08/29/18 08:08 Intake & Output 08/28/18 08/29/18 08/30/18 06:59 06:59 06:59 Intake Total 260 Balance 260 Weight 250 lb 0.067 oz General appearance: PRESENT: no acute distress, well-developed, well-nourished Head exam: PRESENT: atraumatic, normocephalic Eye exam: PRESENT: conjunctiva pink, EOMI, PERRLA. ABSENT: scleral icterus Ear exam: PRESENT: normal external ear exam Mouth exam: PRESENT: moist, tongue midline Neck exam: ABSENT: carotid bruit, JVD, lymphadenopathy, thyromegaly Respiratory exam: PRESENT: decreased breath sounds. ABSENT: rales, rhonchi, wheezes Cardiovascular exam: PRESENT: RRR. ABSENT: diastolic murmur, rubs, systolic murmur Pulses: PRESENT: normal dorsalis pedis pul GI/Abdominal exam: PRESENT: normal bowel sounds, soft. ABSENT: distended, guarding, mass, organolmegaly, rebound, tenderness Rectal exam: PRESENT: deferred Extremities exam: PRESENT: full ROM. ABSENT: calf tenderness, clubbing, pedal edema Neurological exam: PRESENT: alert, awake, oriented to person, oriented to place, oriented to time, oriented to situation, CN II-XII grossly intact. ABSENT: motor sensory deficit Results Laboratory Results: 08/28/18 20:15 08/28/18 20:15 08/28/18 08/28/18 20:15 20:15 WBC 6.5 RBC 4.34 Hgb 11.3 L Hct 36.1 MCV 83 MCH 26.0 L MCHC 31.2 L RDW 18.4 H Plt Count 266 Seg Neutrophils % 61.3 Lymphocytes % 27.1 Monocytes % 9.0 Eosinophils % 1.4 Basophils % 1.2 Absolute Neutrophils 4.0 Absolute Lymphocytes 1.8 Absolute Monocytes 0.6 Absolute Eosinophils 0.1 Absolute Basophils 0.1 Sodium 139.2 Potassium 4.3 Chloride 101 Carbon Dioxide 32 H Anion Gap 6 BUN 18 Creatinine 0.77 Est GFR ( Amer) > 60 Est GFR (Non-Af Amer) > 60 Glucose 121 H Calcium 8.9 Total Bilirubin 0.4 AST 18 ALT 24 Alkaline Phosphatase 80 Total Protein 6.1 L Albumin 3.5 08/28/18 08/28/18 08/29/18 20:15 20:15 00:23 Creatine Kinase 35 CK-MB (CK-2) 0.31 Troponin I < 0.012 < 0.012 08/29/18 08/29/18 07:10 07:10 Creatine Kinase 38 CK-MB (CK-2) 0.45 Troponin I < 0.012 Impressions: Chest X-Ray 08/28/18 20:02 IMPRESSION: Small right pleural effusion with associated right basilar opacity. Consider atelectasis or pneumonia to include aspiration. Suggest follow-up to clearing. copyright 2010 [employer]- All Rights Reserved Chest CT 08/29/18 00:00 IMPRESSION: Moderate right pleural effusion. Small left pleural. Assessment and Plan - Diagnosis (1) Chest pain Is this a current diagnosis for this admission?: Yes Plan: EKGs and troponins have been negative. Stress test ordered on admission. (2) Pleural effusion Is this a current diagnosis for this admission?: Yes Plan: Will pursue a chest CT to further evaluate the significance of her pleural effusion. (3) HTN (hypertension) Is this a current diagnosis for this admission?: Yes Plan: Controlled. Continue home meds. (4) Paroxysmal A-fib Is this a current diagnosis for this admission?: Yes Plan: Continue sotalol. Resume Coumadin. (5) COPD (chronic obstructive pulmonary disease) Qualifiers: COPD type: unspecified COPD Qualified Code(s): J44.9 - Chronic obstructive pulmonary disease, unspecified Is this a current diagnosis for this admission?: Yes Plan: Exacerbation. Breathing treatments as needed. (6) Obstructive sleep apnea Is this a current diagnosis for this admission?: Yes Plan: Noncompliant with therapy. BiPAP at night. - Time Time Spent with patient: 25-34 minutes
[2018-08-29] MEDS: PANTOPRAZOLE SODIUM 40 MG TABLET.DR PO SCH (16:25)
[2018-08-29] MEDS ORDERED: FLUTICASONE/VILANTEROL 200-25 MCG/DOSE IH ONE (17:00)
[2018-08-29] MEDS ORDERED: TIOTROPIUM BROMIDE DPI 5 CAP/KIT (18 MCG/CAP) IH ONE (17:00)
[2018-08-29] MEDS: MAGNESIUM OXIDE 400 MG TABLET PO SCH (18:48)
[2018-08-29] MEDS: ATORVASTATIN CALCIUM 20 MG TABLET PO SCH (21:35)
[2018-08-29] MEDS ORDERED: WARFARIN SODIUM 5 MG TABLET PO SCH (22:00)
[2018-08-30] MEDS: PANTOPRAZOLE SODIUM 40 MG TABLET.DR PO SCH (05:13)
[2018-08-30] MEDS ORDERED: (PENDING PHARMACY ID) (Cholecalciferol (Vitamin D3) [D3-2000] 2,000 UNIT) PO SCH (10:00)
[2018-08-30] MEDS: SOTALOL HCL 80 MG TABLET PO SCH ×2 (11:24→22:45)
[2018-08-30] MEDS: TIOTROPIUM BROMIDE DPI 5 CAP/KIT (18 MCG/CAP) IH SCH (11:30)
[2018-08-30] MEDS: LOSARTAN POTASSIUM 50 MG TABLET PO SCH (11:32)
[2018-08-30] MEDS: CHOLECALCIFEROL (D3) 1,000 UNIT (25 MCG) TABLET PO SCH (11:32)
[2018-08-30] MEDS: ALLOPURINOL 100 MG TABLET PO SCH (11:32)
[2018-08-30] MEDS: FOLIC ACID 1 MG TABLET PO SCH (11:32)
[2018-08-30] MEDS: DOCUSATE SODIUM 100 MG CAPSULE PO SCH (11:32)
[2018-08-30] MEDS: ASPIRIN 81 MG TABLET, ENT COATED PO SCH (11:32)
[2018-08-30] MEDS: AMLODIPINE BESYLATE 10 MG TABLET PO SCH (11:32)
[2018-08-30] MEDS: MAGNESIUM OXIDE 400 MG TABLET PO SCH ×2 (11:32→17:43)
[2018-08-30] MEDS: FLUTICASONE/VILANTEROL 200-25 MCG/DOSE IH SCH (11:33)
[2018-08-30] MEDS: FUROSEMIDE 20 MG TABLET PO SCH (11:33)
--- NOTE | 2018-08-30 12:08 | PDOC PROGRESS REPORT ---
Subjective Progress Note for:: 08/30/18 Subjective:: This is an 83 yr old female with a PMH of RA, debility, morbid obesity SOBEIDA with noncompliance to CPAP/therapy, CAD and paroxysmal AFib who was admitted for chest pain after having an argument with a family member. Chest x-ray shows right-sided atelectasis and pleural effusion. 08/29: She has been chest pain-free. Upon encounter, she appears comfortable. She says she does have shortness of breath but cannot see if she has exertional dyspnea as she has been debilitated and says that she does not really ambulate at home. She currently saturating at 93-94% on room air. 08/30: No acute event overnight. Her chest CT shows moderate right-sided pleural effusion. Patient expressed to medical staff specialist this morning that she wants to go to a rehab/SNF. Discussed in length with patient today. She says that she has been bedbound for almost a year now. When asked why this is so, she is unable to give me a straight answer. She is unable to tell me if it is shortness of breath, joint pains or generalized weakness that is limiting her mobility. She does have noticeable joint stiffness on the knees likely from her rheumatoid arthritis. She says that she was discharged from [facility] in January 2018. Will request records. As mentioned, she is unable to tell me if she is acutely short of breath as she has been bedbound. She is saturating at 92% on room air. Discussed possible thoracentesis for her right-sided effusion and she says that she does not want to proceed and is not amenable to the risk of the procedure at this time. She does admit that she is supposed to be on Lasix and but has not been taking it for the past several months. She is also noncompliant to her CPAP. Patient lives with a grandson and has home health aides coming into help her with her ADLs. Appears patient is noncompliant to a lot of her medications and is requiring a lot of assistance including mobility and medication assistance at home. Await further evaluation and recommendation from physical therapy. Reason For Visit: CHEST PAIN Physical Exam Vital Signs: Temp Pulse Resp BP Pulse Ox 98.0 F 72 16 125/55 L 96 08/30/18 03:19 08/30/18 03:19 08/30/18 03:19 08/30/18 03:19 08/30/18 03:19 Intake & Output 08/29/18 08/30/18 08/31/18 06:59 06:59 06:59 Intake Total 260 1601 Balance 260 1601 Weight 250 lb 0.067 oz 250 lb 0.067 oz General appearance: PRESENT: no acute distress, well-developed, well-nourished Head exam: PRESENT: atraumatic, normocephalic Eye exam: PRESENT: conjunctiva pink, EOMI, PERRLA. ABSENT: scleral icterus Ear exam: PRESENT: normal external ear exam Mouth exam: PRESENT: moist, tongue midline Neck exam: ABSENT: carotid bruit, JVD, lymphadenopathy, thyromegaly Respiratory exam: PRESENT: decreased breath sounds. ABSENT: rales, rhonchi, wheezes Cardiovascular exam: PRESENT: RRR. ABSENT: diastolic murmur, rubs, systolic murmur Pulses: PRESENT: normal dorsalis pedis pul GI/Abdominal exam: PRESENT: normal bowel sounds, soft. ABSENT: distended, guarding, mass, organolmegaly, rebound, tenderness Rectal exam: PRESENT: deferred Extremities exam: PRESENT: full ROM. ABSENT: calf tenderness, clubbing, pedal edema Neurological exam: PRESENT: alert, awake, oriented to person, oriented to place, oriented to time, oriented to situation, CN II-XII grossly intact. ABSENT: motor sensory deficit Psychiatric exam: PRESENT: appropriate affect, normal mood. ABSENT: homicidal ideation, suicidal ideation Results Laboratory Results: 08/28/18 20:15 08/28/18 20:15 08/28/18 08/28/18 08/29/18 20:15 20:15 00:23 Creatine Kinase 35 CK-MB (CK-2) 0.31 Troponin I < 0.012 < 0.012 NT-Pro-B Natriuret Pep 08/29/18 08/29/18 08/29/18 07:10 07:10 13:04 Creatine Kinase 38 27 L CK-MB (CK-2) 0.45 Troponin I < 0.012 NT-Pro-B Natriuret Pep 08/29/18 08/29/18 08/29/18 13:04 13:37 13:37 Creatine Kinase Cancelled CK-MB (CK-2) 0.39 Cancelled Troponin I < 0.012 Cancelled NT-Pro-B Natriuret Pep 08/29/18 13:37 Creatine Kinase CK-MB (CK-2) Troponin I NT-Pro-B Natriuret Pep 374 Impressions: Chest X-Ray 08/28/18 20:02 IMPRESSION: Small right pleural effusion with associated right basilar opacity. Consider atelectasis or pneumonia to include aspiration. Suggest follow-up to clearing. copyright 2011 [employer]- All Rights Reserved Chest CT 08/29/18 00:00 IMPRESSION: Moderate right pleural effusion. Small left pleural. Assessment and Plan - Diagnosis (1) Chest pain Is this a current diagnosis for this admission?: Yes Plan: EKGs and troponins have been negative. Stress test ordered on admission. (2) Pleural effusion Is this a current diagnosis for this admission?: Yes Plan: 08/29: Will pursue a chest CT to further evaluate the significance of her pleural effusion. 08/30: Her chest CT shows moderate right-sided pleural effusion. Patient expressed to medical staff specialist this morning that she wants to go to a rehab/SNF. Discussed in length with patient today. She says that she has been bedbound for almost a year now. When asked why this is so, she is unable to give me a straight answer. She is unable to tell me if it is shortness of breath, joint pains or generalized weakness that is limiting her mobility. She does have noticeable joint stiffness on the knees likely from her rheumatoid arthritis. She says that she was discharged from [facility] in January 2018. Will request records. As mentioned, she is unable to tell me if she is acutely short of breath as she has been bedbound. She is saturating at 92% on room air. Discussed possible thoracentesis for her right-sided effusion and she says that she does not want to proceed and is not amenable to the risk of the procedure at this time. She does admit that she is supposed to be on Lasix and but has not been taking it for the past several months. She is also noncompliant to her CPAP. Patient lives with a grandson and has home health aides coming into help her with her ADLs. Appears patient is noncompliant to a lot of her medications and is requiring a lot of assistance including mobility and medication assistance at home. Await further evaluation and recommendation from physical therapy. (3) HTN (hypertension) Is this a current diagnosis for this admission?: Yes Plan: Controlled. Continue home meds. (4) Paroxysmal A-fib Is this a current diagnosis for this admission?: Yes Plan: Continue sotalol and Coumadin. (5) COPD (chronic obstructive pulmonary disease) Qualifiers: COPD type: unspecified COPD Qualified Code(s): J44.9 - Chronic obstructive pulmonary disease, unspecified Is this a current diagnosis for this admission?: Yes Plan: Not in exacerbation. Breathing treatments as needed. (6) Obstructive sleep apnea Is this a current diagnosis for this admission?: Yes Plan: Noncompliant with therapy. BiPAP at night. - Time Time Spent with patient: 25-34 minutes
[2018-08-30] MEDS ORDERED: WARFARIN SODIUM 5 MG TABLET PO SCH (22:00)
[2018-08-30] MEDS: ATORVASTATIN CALCIUM 20 MG TABLET PO SCH (22:46)
[2018-08-31 05:09] LABS: ANION GAP 6 (5-19); BLOOD UREA NITROGEN 19 mg/dL (7-20); CALCIUM 8.9 mg/dL (8.4-10.2); CARBON DIOXIDE 31 mmol/L (22-30); CHLORIDE 102 mmol/L (98-107); GLUCOSE 110 mg/dL (75-110); POTASSIUM 4.7 mmol/L (3.6-5.0); SODIUM 138.6 mmol/L (137-145)
[2018-08-31] MEDS: PANTOPRAZOLE SODIUM 40 MG TABLET.DR PO SCH (05:29)
[2018-08-31] MEDS: LOSARTAN POTASSIUM 50 MG TABLET PO SCH (11:19)
[2018-08-31] MEDS: ALLOPURINOL 100 MG TABLET PO SCH (11:19)
[2018-08-31] MEDS: FUROSEMIDE 20 MG TABLET PO SCH (11:19)
[2018-08-31] MEDS: CHOLECALCIFEROL (D3) 1,000 UNIT (25 MCG) TABLET PO SCH (11:19)
[2018-08-31] MEDS: AMLODIPINE BESYLATE 10 MG TABLET PO SCH (11:19)
[2018-08-31] MEDS: ASPIRIN 81 MG TABLET, ENT COATED PO SCH (11:19)
[2018-08-31] MEDS: DOCUSATE SODIUM 100 MG CAPSULE PO SCH (11:19)
[2018-08-31] MEDS: FOLIC ACID 1 MG TABLET PO SCH (11:20)
[2018-08-31] MEDS: MAGNESIUM OXIDE 400 MG TABLET PO SCH ×2 (11:20→18:30)
[2018-08-31] MEDS: TIOTROPIUM BROMIDE DPI 5 CAP/KIT (18 MCG/CAP) IH SCH (11:20)
[2018-08-31] MEDS: FLUTICASONE/VILANTEROL 200-25 MCG/DOSE IH SCH (11:21)
[2018-08-31 11:22] LABS: PROTHROMBIN TIME 24.6 SEC (11.4-15.4)
[2018-08-31] MEDS: SOTALOL HCL 80 MG TABLET PO SCH (11:23)
--- NOTE | 2018-08-31 14:09 | RADIOLOGY REPORT (SQ) ---
EXAM DESCRIPTION: U/S CHEST COMPLETED DATE/TIME: 08/31/2018 11:03 am REASON FOR STUDY: Quantify pleural effusion, bilateral R07.9 CHEST PAIN, UNSPECIFIED R06.01 ORTHOP MAT COMPARISON: None. TECHNIQUE: Dynamic and static grayscale images acquired of the localized site of clinical concern an d recorded on PACS. Additional selected color Doppler and spectral images recorded. SITE OF CONCERN: Pleural space. LIMITATIONS: None. FINDINGS: Small right pleural effusion. No significant left pleural effusion. IMPRESSION: Right pleural effusion volume estimated less than 200 cc. TECHNICAL DOCUMENTATION: JOB ID: [id number] [employer]- All Rights Reserved Reading location - IP/workstation name: [email or web address]
[2018-08-31 20:07] VITALS: BP 112/64
--- NOTE | 2018-09-01 13:19 | CONSULTATION REPORT E ---
Consultation Report NAME: MAEGAN NARAYAN : 1935 AGE: 83Y DATE: 08/31/2018 533 A TO: FUNMI VENTURA M.D. FROM: LIAM TURNER M.D. Requesting Physician HISTORY OF PRESENT ILLNESS: Patient is an 83-year-old -[place] female who came in on August 28, 2018 for chest tightness, increased shortness of breath. Patient has a past medical history of rheumatoid arthritis, severe debility due to morbid obesity, obstructive sleep apnea with BiPAP therapy and noncompliant with BiPAP therapy, history of coronary artery disease and atrial fibrillation. Patient was previously seen by cardiology, Dr. Meza, and . Patient due to chest pain took nitroglycerine, which relieved the pain. On admission, the patient was worked up for [facility]. PAST MEDICAL HISTORY: 1. Atrial fibrillation. 2. Congestive heart failure. 3. DVT. 4. Hyperlipidemia. 5. Hypertension. 6. Peripheral vascular disease. 7. History of asthma and COPD. 8. Endocrine: Diabetes mellitus type 2. 9. GI: Gastroesophageal reflux disease. 10. Musculoskeletal: Arthritis, rheumatoid. 11. Fairly Severe degenerative joint disease, and also arthritis in both knees. SURGICAL HISTORY: 1. Cholecystectomy. 2. Hysterectomy. 3. Tonsillectomy SOCIAL HISTORY: Patient lives with his family. Never smoked. He has alcohol abuse. MEDICATIONS AT HOME: Include: 1. Vitamin B3. 2. Vitamin B12. 3. Folate. 4. Prevacid. 5. Losartan. 6. Methotrexate. 7. Montelukast. 8. Prednisone 2.5 daily. 9. Sotalol. 10. Clonidine. 11. Albuterol. 12. Allopurinol. 13. Amlodipine. 14. . 15. Colace. 16. Mucinex. 17. DuoNeb. 18. Spiriva. 19. Tramadol. ALLERGIES: PENICILLIN. REVIEW OF SYSTEMS: CONSTITUTIONAL: Denies any fever, chills, headache, weight gain, or weight loss. Denies any visual disturbances. Ears: Denies any hearing changes. CARDIOVASCULAR: Denies any palpitations, orthopnea, bipedal edema. RESPIRATIONS: Complained about chest tightness and shortness of breath. Denies any cough or hemoptysis or sputum production. GASTROINTESTINAL: No nausea, vomiting, diarrhea. GENITOURINARY: No dysuria, hematuria. MUSCULOSKELETAL: No joint swelling. SKIN: No rash or wounds. NEURO: No abnormal gait or abnormal speech, nor confusion, dizziness, or focal weakness. PSYCHIATRIC: Denies anxiety, depression, homicidal ideation, or suicidal ideation. ENDOCRINE: Denies any cold intolerance, heat intolerance, polydipsia, polyuria. Denies any easy bleeding or easy bruising. PHYSICAL EXAMINATION: GENERAL: The patient is awake, alert, and oriented x3. VITAL SIGNS: Temperature was 99 degrees Fahrenheit, with a T-max of 99 degrees Fahrenheit. The pulse rate is 84, blood pressure is 132/79, respiratory rate 18, saturation 96% on room air. EYES: No jaundice or pallor. EARS, NOSE, AND THROAT: No ear drainage. No nasal discharge. CHEST AND LUNGS: No wheezing. No rhonchi. No coarse crackles. CARDIOVASCULAR: S1, S2 distinct. No murmur. Regular rate and rhythm. ABDOMEN: Flabby. Positive bowel sounds. Soft, nondistended, nontender. EXTREMITIES: No joint swelling or cellulitis. LABORATORY: CBC done on August 28 showed a white count of 6.5, hemoglobin 11.3, hematocrit is 36.1, and platelet count is 266. Chemistry done on August 31, yesterday at 4:00 in the morning showed sodium was 138, potassium 4.7, chloride is 102, CO2 is 31, BUN is 19, creatinine 0.8, glucose 110, and calcium is 8.9. is 37. On August 31, 2018 PT is 34.6, INR is 2.1. Chest CT scan done on August 28, 2018 showed bilateral pleural effusion, right more than left. Chest ultrasound done today showed small amount of right pleural effusion and nonexistent in the left chest. ASSESSMENT: 1. PLEURAL EFFUSION, BILATERAL; RIGHT GREATER THAN LEFT SMALL PLEURAL EFFUSION. PATIENT DOES NOT NEED THORACENTESIS AT THIS TIME. THE PLEURAL EFFUSION WILL RESOLVE ON ITS OWN. 2. THE PATIENT HAS UNDERLYING CARDIAC ETIOLOGY, HISTORY OF CONGESTIVE HEART FAILURE, AND ATRIAL FIBRILLATION. 3. OBSTRUCTIVE SLEEP APNEA, REQUIRING BIPAP THERAPY. CURRENTLY THE PATIENT IS NONCOMPLIANT. WE WILL RECOMMEND THE PATIENT'S PULMONARY FOLLOW UP FOR FURTHER EVALUATION FOR NEED FOR OXYGEN OR BIPAP OR CPAP. 4. HISTORY OF CONGESTIVE HEART FAILURE. RECOMMEND TO OPTIMIZE CC THERAPY. RECOMMEND CAUTIOUS DIURESIS. DICTATING PHYSICIAN: FUNMI VENTURA M.D. [id number] PHY#: [id number] 1933 ID: [id number] JOB#: [id number] ACCT: [id number] cc:FUNMI VENTURA M.D. >
[2018-09-04] MEDS ORDERED: METHOTREXATE SODIUM 2.5 MG TABLET PO SCH (10:00)
== END 2018-08-31 21:22 | disposition home health service (06) ==
LOC: ER 19:41 → EH 21:54 → 5 23:10
PROVIDERS: ADMIT Internal Medicine; ATTEND Internal Medicine
DX: R07.9 Chest pain, unspecified (principal); J98.11 Atelectasis; I48.0 Paroxysmal atrial fibrillation; I11.0 Hypertensive heart disease with heart failure; I50.9 Heart failure, unspecified; J44.9 Chronic obstructive pulmonary disease, unspecified; E11.9 Type 2 diabetes mellitus without complications; G47.33 Obstructive sleep apnea (adult) (pediatric); E66.01 Morbid (severe) obesity due to excess calories; Z68.41 Body mass index [BMI] 40.0-44.9, adult; E78.5 Hyperlipidemia, unspecified; M06.9 Rheumatoid arthritis, unspecified; I73.9 Peripheral vascular disease, unspecified; K21.9 Gastro-esophageal reflux disease without esophagitis; M19.90 Unspecified osteoarthritis, unspecified site; Z86.718 Personal history of other venous thrombosis and embolism; Z90.49 Acquired absence of other specified parts of digestive tract; Z90.710 Acquired absence of both cervix and uterus; Z79.01 Long term (current) use of anticoagulants; Z79.899 Other long term (current) drug therapy; Z88.0 Allergy status to penicillin
CPT/HCPCS: 93005; 99285; 36415 ×3; 82553 ×2; 82550 ×2; 85025; 85610 ×2; 80048; 80053; 84484 ×2; 83880; 71045; 76604; 71250; 94799 ×2; 93010; 97530; 97110; 97161; G0378 ×5; A9270 ×26; J3490 ×10

== ENCOUNTER 2018-12-12 11:12 | Inpatient (IN) | payer MEDICARE, OTHER ==
--- NOTE | 2018-12-12 12:03 | RADIOLOGY REPORT (SQ) ---
EXAM DESCRIPTION: CHEST SINGLE VIEW COMPLETED DATE/TIME: 12/12/2018 11:52 am REASON FOR STUDY: Shortness of breath COMPARISON: Chest x-ray 08/28/2018. EXAM PARAMETERS: NUMBER OF VIEWS: One view. TECHNIQUE: Single frontal radiographic view of the chest acquired. RADIATION DOSE: NA LIMITATIONS: None. FINDINGS: LUNGS AND PLEURA: There small bilateral pleural effusions with bibasilar airspace opacitie s. No pneumothorax. MEDIASTINUM AND HILAR STRUCTURES: No masses. Contour normal. HEART AND VASCULAR STRUCTURES: The heart is upper normal limit in size. There is mild central vascul ar congestion. BONES: No acute findings. HARDWARE: None in the chest. IMPRESSION: Mild central vascular congestion. Small bilateral pleural effusions with bibasilar airs pace opacities, may represent atelectasis or pneumonia. TECHNICAL DOCUMENTATION: JOB ID: [id number] [place]-64 2010 [employer]- All Rights Reserved Reading location - IP/workstation name: [email or web address]
--- NOTE | 2018-12-12 12:28 | ER Document Report ---
ED Medical Screen (RME) - General Chief Complaint: Shortness Of Breath Stated Complaint: SHORTNESS OF BREATH Time Seen by Provider: 12/12/18 12:25 Primary Care Provider: ONUR CAMPO MD [Primary Care Provider] - Follow up as needed Mode of Arrival: Medic Information source: Patient, Parent Notes: 83-year-old female presented to ED for exacerbation of A. fib and COPD. She has been having this shortness of breath without chest pain. She states she has been having shortness of breath all day yesterday he states that last night. She states the EMS noted her last night but she did not come to the emergency room. She states she was moved by the regular left yesterday which made her feel worse. This morning she felt much worse so she did agree to come to the emergency room. Her heart rate at this moment is between 40 and 50 with blood pressure 117/5398 and respirations of 14. I have greeted and performed a rapid initial assessment of this patient. A comprehensive ED assessment and evaluation of the patient, analysis of test results and completion of medical decision making process will be conducted by an additional ED providers. TRAVEL OUTSIDE OF THE [place] IN LAST 30 DAYS: No - Related Data Allergies/Adverse Reactions: Penicillins Allergy (Verified 08/12/17 01:06) Past Medical History - Social History Chew tobacco use (# tins/day): No Frequency of alcohol use: None Drug Abuse: None - Past Medical History Cardiac Medical History: Reports: Hx Atrial Fibrillation - intermittent, Hx Congestive Heart Failure, Hx DVT, Hx Hypercholesterolemia, Hx Hypertension, Hx Peripheral Vascular Disease Pulmonary Medical History: Reports: Hx Asthma, Hx COPD Endocrine Medical History: Reports: Hx Diabetes Mellitus Type 2 Renal/ Medical History: Denies: Hx Peritoneal Dialysis GI Medical History: Reports: Hx Gastroesophageal Reflux Disease Musculoskeltal Medical History: Reports Hx Arthritis - RA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, Reports Hx Musculoskeletal Deformity, Reports Hx Musculoskeletal Trauma Psychiatric Medical History: Denies: Hx Depression Past Surgical History: Reports: Hx Cardiac Surgery - implanted monitor, Hx Cholecystectomy, Hx Hysterectomy, Hx Tonsillectomy - Immunizations Hx Diphtheria, Pertussis, Tetanus Vaccination: Yes Physical Exam - Vital signs Vitals: Temp Pulse Resp BP Pulse Ox 97.4 F 50 L 16 141/73 H 91 L 12/12/18 11:24 12/12/18 11:24 12/12/18 11:24 12/12/18 11:24 12/12/18 11:24 Course - Vital Signs Vital signs: Temp Pulse Resp BP Pulse Ox 97.4 F 50 L 16 141/73 H 91 L 12/12/18 11:24 12/12/18 11:24 12/12/18 11:24 12/12/18 11:24 12/12/18 11:24 Doctor's Discharge - Discharge Referrals: ONUR CAMPO MD [Primary Care Provider] - Follow up as needed
[2018-12-12 12:46] LABS: INTERNATIONAL RATION (INR) 1.54; PROTHROMBIN TIME 18.7 SEC (11.4-15.4)
[2018-12-12 12:49] LABS: PARTIAL THROMBOPLASTIN TIME 31.6 SEC (23.5-35.8)
[2018-12-12 13:01] LABS: ALBUMIN 3.5 g/dL (3.5-5.0); ALKALINE PHOSPHATASE 89 U/L (38-126); ANION GAP 7 (5-19); ASPARTATE AMINO TRANSFERASE 17 U/L (14-36); BILIRUBIN,DIRECT 0.3 mg/dL (0.0-0.4); BILIRUBIN,TOTAL 0.6 mg/dL (0.2-1.3); BLOOD UREA NITROGEN 32 mg/dL (7-20); CALCIUM 9.1 mg/dL (8.4-10.2); CARBON DIOXIDE 31 mmol/L (22-30); CHLORIDE 97 mmol/L (98-107); CREATINE KINASE 44 U/L (30-135); GLUCOSE 161 mg/dL (75-110); POTASSIUM 4.9 mmol/L (3.6-5.0); TOTAL PROTEIN 6.1 g/dL (6.3-8.2)
[2018-12-12 13:04] LABS: ABSOLUTE BASOPHILS # (AUTO) 0.1 10^3/uL (0.0-0.2); TOTAL CELLS COUNTED % (AUTO) 100 %
[2018-12-12 13:07] LABS: ABSOLUTE LYMPHOCYTES (AUTO) 2.8 10^3/uL (0.5-4.7); ABSOLUTE MONOCYTES (AUTO) 0.7 10^3/uL (0.1-1.4); ABSOLUTE NEUT (AUTO) 6.7 10^3/uL (1.7-8.2); BASOPHILS % (AUTO) 0.6 % (0-2); EOSINOPHILS % (AUTO) 0.4 % (0-6); HEMATOCRIT 36.4 % (36.0-47.0); HEMOGLOBIN 11.3 g/dL (12.0-15.5); LYMPHOCYTES % (AUTO) 27.5 % (13-45); MEAN CORPUSCULAR HEMOGLOBIN 26.4 pg (27.0-33.4); MEAN CORPUSCULAR HGB CONC 31.1 g/dL (32.0-36.0); MEAN CORPUSCULAR VOLUME 85 fl (80-97); MONOCYTES % (AUTO) 7.1 % (3-13); PLATELET COUNT 279 10^3/uL (150-450); RED BLOOD COUNT 4.29 10^6/uL (3.72-5.28); RED CELL DISTRIBUTION WIDTH 19.2 % (11.5-14.0); SEGMENTED NEUTROPHILS % (AUTO) 64.4 % (42-78); WHITE BLOOD COUNT 10.3 10^3/uL (4.0-10.5)
[2018-12-12 13:34] LABS: CREATINE KINASE MB 0.38 ng/mL (<4.55); NT PRO BNP 4820 pg/mL (<450)
[2018-12-12 13:40] LABS: TROPONIN I < 0.012 ng/mL
--- NOTE | 2018-12-12 13:42 | ER Document Report ---
ED Respiratory Problem - General Chief Complaint: Shortness Of Breath Stated Complaint: SHORTNESS OF BREATH Time Seen by Provider: 12/12/18 12:25 Primary Care Provider: ONUR CAMPO MD [Primary Care Provider] - Follow up as needed Mode of Arrival: Medic Notes: 83-year-old female with past medical history of DVTs on Coumadin, atrial fibrillation, COPD, presents to the emergency department with chief complaint of acute shortness of breath that started yesterday. She called EMS last night but decided not to come in and her symptoms did not improve today so she was brought in by EMS. Patient arrived on 2 L of O2 via nasal cannula and she does not have baseline oxygen at home. SPO2 93% on arrival. Patient states that she has a home health nurse coming every Friday and she is always greater than 95%. Patient denies any recent illness, fevers, chills, nausea or vomiting, chest francisco n, urinary symptoms. Of note patient is bradycardic with an irregularly irregular rhythm. TRAVEL OUTSIDE OF THE [place] IN LAST 30 DAYS: No - Related Data Allergies/Adverse Reactions: Penicillins Allergy (Verified 08/12/17 01:06) Past Medical History - General Information source: Patient, Parent - Social History Smoking Status: Never Smoker Chew tobacco use (# tins/day): No Frequency of alcohol use: None Drug Abuse: None Family History: Arthritis, Hypertension Patient has suicidal ideation: No Patient has homicidal ideation: No - Past Medical History Cardiac Medical History: Reports: Hx Atrial Fibrillation - intermittent, Hx Con gestive Heart Failure, Hx DVT, Hx Hypercholesterolemia, Hx Hypertension, Hx Peripheral Vascular Disease Pulmonary Medical History: Reports: Hx Asthma, Hx COPD Endocrine Medical History: Reports: Hx Diabetes Mellitus Type 2 Renal/ Medical History: Denies: Hx Peritoneal Dialysis GI Medical History: Reports: Hx Gastroesophageal Reflux Disease Musculoskeletal Medical History: Reports Hx Arthritis - RA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, Reports Hx Musculoskeletal Deformity, Reports Hx Musculoskeletal Trauma Psychiatric Medical History: Denies: Hx Depression Past Surgical History: Reports: Hx Cardiac Surgery - implanted monitor, Hx Cholecystectomy, Hx Hysterectomy, Hx Tonsillectomy - Immunizations Hx Diphtheria, Pertussis, Tetanus Vaccination: Yes Hx Pneumococcal Vaccination: 03/17/12 Review of Systems - Review of Systems Constitutional: See HPI EENT: See HPI Cardiovascular: See HPI Respiratory: See HPI Gastrointestinal: See HPI Genitourinary: No symptoms reported Female Genitourinary: No symptoms reported Musculoskeletal: No symptoms reported Skin: No symptoms reported Hematologic/Lymphatic: No symptoms reported Neurological/Psychological: No symptoms reported Physical Exam - Vital signs Vitals: Resp Pulse Ox 19 94 12/12/18 11:21 12/12/18 11:21 - Notes Notes: PHYSICAL EXAMINATION: Reviewed vital signs and charting by RN GENERAL: Alert, interacts well. No acute distress. HEAD: Normocephalic, atraumatic. EYES: Pupils equal and round. Extraocular movements intact. ENT: Oral mucosa moist, tongue midline. NECK: Full range of motion. Trachea midline. LUNGS: Clear to auscultation bilaterally, no wheezes, rales, or rhonchi. No respiratory distress. HEART: Regular rate and rhythm. No murmur ABDOMEN: soft, non-tender. No distention. Bowel sounds present EXTREMITIES: Moves all 4 extremities spontaneously. Patient is bedbound. No edema, No cyanosis. PSYCH: Normal affect, normal mood. SKIN: Warm, dry, normal turgor. No rashes or lesions noted. Course - Re-evaluation Re-evalutation: 12/12/18 14:50 Nontoxic-appearing. Patient complains of acute shortness of breath, SPO2 on the run report was 93%. She arrived here on oxygen and when I initially saw her she was on 2 L satting at 98%. I stopped her oxygen and she did to go down to 93% which is still overall unremarkable. A BNP was ordered and it was 4820 significantly elevated from all previous results in the past. Chest x-ray showed pulmonary vascular congestion with bilateral blunted costovertebral angles consistent with atelectasis versus effusion. EKG showed an irregularly irregular rhythm with a rate of 41. Lungs were clear to auscultation and I did not see any peripheral edema. I called Dr. Damon Bradley, hospitalist, who accepted the patient for admission to the [facility]. - Vital Signs Vital signs: Temp Pulse Resp BP Pulse Ox 97.4 F 50 L 14 117/53 L 95 12/12/18 11:24 12/12/18 11:24 12/12/18 12:26 12/12/18 12:26 12/12/18 12:28 - Laboratory Result Diagrams: 12/12/18 11:55 12/12/18 11:55 Laboratory results interpreted by me: 12/12/18 12/12/18 12/12/18 11:55 11:55 11:55 Hgb 11.3 L MCH 26.4 L MCHC 31.1 L RDW 19.2 H PT 18.7 H Sodium 135.0 L Chloride 97 L Carbon Dioxide 31 H BUN 32 H Est GFR (MDRD) Non-Af 54 L Glucose 161 H NT-Pro-B Natriuret Pep Total Protein 6.1 L 12/12/18 12:58 Hgb MCH MCHC RDW PT Sodium Chloride Carbon Dioxide BUN Est GFR (MDRD) Non-Af Glucose NT-Pro-B Natriuret Pep 4820 H Total Protein Discharge - Discharge Clinical Impression: Shortness of breath CHF exacerbation Qualifiers: Heart failure type: unspecified Qualified Code(s): I50.9 - Heart failure, unspecified Condition: Stable Disposition: ADMITTED INPATIENT Admitting Provider: Sammi (Hospitalist) Unit Admitted: IMCU Referrals: ONUR CAMPO MD [Primary Care Provider] - Follow up as needed
[2018-12-12] MEDS ORDERED: ONDANSETRON HCL INJ/PF 4 MG/2 ML SDV IV PRN (15:22)
[2018-12-12] MEDS ORDERED: ACETAMINOPHEN 325 MG TABLET PO PRN (15:22)
--- NOTE | 2018-12-12 15:40 | PDOC H&P ---
History of Present Illness Admission Date/PCP: 12/12/18 14:54 ONUR CAMPO Patient complains of: Shortness of breath for the last 3 days History of Present Illness: MAEGAN NARAYAN is a 83 year old female with history of congestive heart failure, osteoarthritis, hypertension, morbid obesity came to the emergency room with complaints of shortness of breath. She is bedbound because of the severe osteoarthritis affecting the both knees. Denies any cough denies any cold denies any headaches denies any dizzy spells denies any fevers. Denies any nausea vomiting diarrhea. She said she is supposed to be on Lasix but she is noncompliant. She admitted that she is gaining weight. Sleeps propped up position with 2 pillows. medical consult was called for possible admission. 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 Psychiatric Medical History: Denies: Depression Past Surgical History Past Surgical History: Reports: Cholecystectomy, Hysterectomy, Tonsillectomy Social History Information Source: Patient Lives with: Family Smoking Status: Never Smoker Electronic Cigarette use?: No Frequency of Alcohol Use: None Hx Recreational Drug Use: No Drugs: None Hx Prescription Drug Abuse: No - Advance Directive Resuscitation Status: Full Code Family History Family History: Arthritis, Hypertension Parental Family History Reviewed: Yes - Hypertension and heart disease Children Family History Reviewed: Yes Sibling(s) Family History Reviewed.: Yes Medication/Allergy Allergies/Adverse Reactions: Penicillins Allergy (Verified 12/12/18 15:09) Review of Systems Constitutional: ABSENT: fever(s) Eyes: ABSENT: visual disturbances Ears: ABSENT: hearing changes Nose, Mouth, and Throat: ABSENT: sore throat Cardiovascular: PRESENT: orthropnea Respiratory: PRESENT: dyspnea Gastrointestinal: ABSENT: diarrhea, dysphagia, heartburn, hematemesis, hematochezia Genitourinary: ABSENT: dysuria, hematuria Musculoskeletal: PRESENT: joint swelling. ABSENT: deformity Neurological: ABSENT: abnormal gait, abnormal speech, confusion, dizziness, focal weakness, syncope Psychiatric: ABSENT: anxiety, depression, homidical ideation, suicidal ideation Endocrine: ABSENT: cold intolerance, heat intolerance, polydipsia, polyuria Physical Exam Vital Signs: Temp Pulse Resp BP Pulse Ox 97.4 F 50 L 14 117/53 L 95 12/12/18 11:24 12/12/18 11:24 12/12/18 12:26 12/12/18 12:26 12/12/18 12:28 Intake & Output 12/11/18 12/12/18 12/13/18 06:59 06:59 06:59 Weight 108.862 kg General appearance: PRESENT: no acute distress, cooperative, morbidly obese Head exam: PRESENT: atraumatic Eye exam: PRESENT: PERRLA Ear exam: PRESENT: normal external ear exam Mouth exam: PRESENT: neck supple Teeth exam: PRESENT: poor dentation Neck exam: ABSENT: carotid bruit, JVD, lymphadenopathy, thyromegaly Cardiovascular exam: PRESENT: RRR. ABSENT: diastolic murmur, rubs, systolic mu rmur Pulses: PRESENT: normal dorsalis pedis pul GI/Abdominal exam: PRESENT: normal bowel sounds, soft. ABSENT: distended, guarding, mass, organolmegaly, rebound, tenderness Rectal exam: PRESENT: deferred Extremities exam: PRESENT: joint swelling - Chronic skin changes in the lower extremities. No pedal edema., other Musculoskeletal exam: PRESENT: other - She has severe osteoarthritis of the knees bedbound. Neurological exam: PRESENT: alert Psychiatric exam: PRESENT: appropriate affect, normal mood. ABSENT: homicidal ideation, suicidal ideation Results Laboratory Results: 12/12/18 11:55 12/12/18 11:55 12/12/18 12/12/18 12/12/18 11:55 11:55 11:55 WBC 10.3 RBC 4.29 Hgb 11.3 L Hct 36.4 MCV 85 MCH 26.4 L MCHC 31.1 L RDW 19.2 H Plt Count 279 Seg Neutrophils % 64.4 Sodium 135.0 L Potassium 4.9 Chloride 97 L Carbon Dioxide 31 H Anion Gap 7 BUN 32 H Creatinine 0.99 Est GFR ( Amer) > 60 Glucose 161 H Calcium 9.1 Magnesium 2.1 Total Bilirubin 0.6 AST 17 Alkaline Phosphatase 89 Total Protein 6.1 L Albumin 3.5 TSH 2.82 12/12/18 12/12/18 11:55 12:58 Creatine Kinase 44 CK-MB (CK-2) 0.38 Troponin I < 0.012 NT-Pro-B Natriuret Pep 4820 H Impressions: Chest X-Ray 12/12/18 11:26 IMPRESSION: Mild central vascular congestion. Small bilateral pleural eff usions with bibasilar airspace opacities, may represent atelectasis or pneumonia. Assessment and Plan - Diagnosis (1) CHF exacerbation Qualifiers: Heart failure type: unspecified Qualified Code(s): I50.9 - Heart failure, unspecified Is this a current diagnosis for this admission?: Yes (2) Shortness of breath Is this a current diagnosis for this admission?: Yes (3) Atrial fibrillation Qualifiers: Is this a current diagnosis for this admission?: No (4) Gout Is this a current diagnosis for this admission?: No (5) Hypertension Qualifiers: Is this a current diagnosis for this admission?: No (6) Obstructive sleep apnea Is this a current diagnosis for this admission?: No (7) Osteoarthritis Is this a current diagnosis for this admission?: No - Plan Summary Summary: .Acute on chronic exacerbation of CHF. Patient is going to be admitted to [facility]. Start on Lasix 40 mg IV twice daily. To continue oxygen 2 L nasal cannula. Repeat BNP tomorrow. GI prophylaxis initiated. Patient is already on warfarin at home. Daily weight will be requested. Msith's catheter in place. Blood cultures are requested to start on Levaquin 5 mg IV daily because the chest x-ray suggestive of possible atelectasis versus pneumonia. Fluid restriction will be implemented 1500 cc/day. Admitted as inpatient. Most likely in my opinion patient has systolic heart failure. 2.history of paroxysmal atrial fibrillation on warfarin INR is 1.44 to resume warfarin 5 mg daily and 7.5 mg on the weekends. To check PT/INR daily basis and the pharmacy will adjust the doses. 3.hypertension Blood pressure is 117/53 stable. Started on Lasix 40 mg IV twice daily and restart losartan 50 mg daily. 4.morbid obesity Made is more than to 43.0 diet exercise weight loss discussed with the patient dietary consult will be requested. 5.osteoarthritis Has severe arthritis in the both knees to Tylenol every 6 hours PRN for pains. 6.gout Has history of gout denies any gout symptoms during this admission. And is to resume allopurinol. 7.patient has history of diabetes mellitus to check hemoglobin A1c and to place her on insulin sliding scale.
[2018-12-12] MEDS ORDERED: LEVOFLOXACIN 500 MG/D5W RTU 500 MG/100 ML RTUPB IV ONE ×2 (18:00→21:18)
[2018-12-12 19:00] LABS: CREATINE KINASE MB 0.29 ng/mL (<4.55)
[2018-12-12 19:05] LABS: TROPONIN I < 0.012 ng/mL
--- NOTE | 2018-12-12 19:25 | EKG REPORT ---
SEVERITY:- ABNORMAL ECG - ATRIAL FIBRILLATION VENTRICULAR TRIGEMINY : Confirmed by: Louisa Alexis MD 12-Dec-2018 19:24:23
[2018-12-12] MEDS: PANTOPRAZOLE SODIUM 40 MG TABLET.DR PO SCH (21:28)
[2018-12-12] MEDS: FAMOTIDINE 20 MG TABLET PO SCH (21:28)
[2018-12-12] MEDS: MONTELUKAST SODIUM 10 MG TABLET PO SCH (21:28)
[2018-12-12] MEDS: ATORVASTATIN CALCIUM 10 MG TABLET PO SCH (21:28)
[2018-12-12] MEDS: PREDNISONE 10 MG TABLET PO SCH (21:28)
[2018-12-12] MEDS: WARFARIN SODIUM 7.5 MG TABLET PO SCH (21:28)
[2018-12-12 21:29] LABS: ARTERIAL BLOOD BASE EXCESS -2.6 mmol/L; ARTERIAL BLOOD H2CO3 1.33 mmol/L (1.05-1.35); ARTERIAL BLOOD HCO3 23.3 mmol/L (20-24); ARTERIAL BLOOD O2 SATURATION 93.9 % (94-98); ARTERIAL BLOOD PCO2 44.3 mmHg (35-45); ARTERIAL BLOOD PH 7.34 (7.35-7.45); ARTERIAL BLOOD PO2 73.5 mmHg (80-100); ARTERIAL BLOOD TOTAL CO2 24.6 mmol/L (21-25)
[2018-12-12] MEDS: FUROSEMIDE INJ/PF 40 MG/4 ML SDV IV SCH (21:30)
[2018-12-12 21:31] LABS: ARTERIAL BLOOD FIO2 2 FLOW RATE
[2018-12-12] MEDS ORDERED: WARFARIN SODIUM 5 MG TABLET PO SCH (22:00)
[2018-12-12] MEDS ORDERED: METHOTREXATE SODIUM 2.5 MG TABLET PO SCH (22:00)
[2018-12-13] MEDS: LEVALBUTEROL HCL NEB 0.63 MG/3 ML AMPUL NEB PRN ×5 (00:14→15:41)
[2018-12-13 01:18] LABS: CREATINE KINASE MB 0.38 ng/mL (<4.55)
[2018-12-13 01:19] LABS: TROPONIN I < 0.012 ng/mL
[2018-12-13] MEDS: PANTOPRAZOLE SODIUM 40 MG TABLET.DR PO SCH ×2 (05:33→17:33)
[2018-12-13 07:07] LABS: ABSOLUTE BASOPHILS # (AUTO) 0.1 10^3/uL (0.0-0.2); ABSOLUTE LYMPHOCYTES (AUTO) 1.6 10^3/uL (0.5-4.7); ABSOLUTE MONOCYTES (AUTO) 0.5 10^3/uL (0.1-1.4); ABSOLUTE NEUT (AUTO) 7.2 10^3/uL (1.7-8.2); BASOPHILS % (AUTO) 0.7 % (0-2); EOSINOPHILS % (AUTO) 0.2 % (0-6); HEMATOCRIT 35.7 % (36.0-47.0); HEMOGLOBIN 11.1 g/dL (12.0-15.5); LYMPHOCYTES % (AUTO) 16.8 % (13-45); MEAN CORPUSCULAR HEMOGLOBIN 25.7 pg (27.0-33.4); MEAN CORPUSCULAR HGB CONC 31.1 g/dL (32.0-36.0); MEAN CORPUSCULAR VOLUME 83 fl (80-97); PLATELET COUNT 257 10^3/uL (150-450); RED BLOOD COUNT 4.31 10^6/uL (3.72-5.28); RED CELL DISTRIBUTION WIDTH 18.4 % (11.5-14.0); SEGMENTED NEUTROPHILS % (AUTO) 77.3 % (42-78); TOTAL CELLS COUNTED % (AUTO) 100 %; WHITE BLOOD COUNT 9.3 10^3/uL (4.0-10.5)
[2018-12-13 07:19] LABS: INTERNATIONAL RATION (INR) 1.57
[2018-12-13 07:30] LABS: ALBUMIN 3.8 g/dL (3.5-5.0); ALKALINE PHOSPHATASE 100 U/L (38-126); ANION GAP 10 (5-19); ASPARTATE AMINO TRANSFERASE 19 U/L (14-36); BILIRUBIN,DIRECT 0.2 mg/dL (0.0-0.4); BILIRUBIN,TOTAL 0.6 mg/dL (0.2-1.3); BLOOD UREA NITROGEN 40 mg/dL (7-20); CALCIUM 9.2 mg/dL (8.4-10.2); CARBON DIOXIDE 27 mmol/L (22-30); CHLORIDE 99 mmol/L (98-107); CHOLESTEROL 134.35 mg/dL (0-200); GLUCOSE 151 mg/dL (75-110); POTASSIUM 5.4 mmol/L (3.6-5.0); TOTAL PROTEIN 6.6 g/dL (6.3-8.2); TRIGLYCERIDES 63 mg/dL (<150)
[2018-12-13 07:41] LABS: DIRECT LDL 71 mg/dL (<100)
[2018-12-13 07:42] LABS: CREATINE KINASE MB 0.43 ng/mL (<4.55)
[2018-12-13 07:56] LABS: TROPONIN I < 0.012 ng/mL
[2018-12-13] MEDS ORDERED: INFLUENZA QUAD (6MOS+) 2019-20 VAC 0.5 ML SYR IM ONE (08:00)
[2018-12-13] MEDS ORDERED: LOSARTAN POTASSIUM 50 MG TABLET PO SCH (10:00)
[2018-12-13] MEDS ORDERED: ALLOPURINOL 300 MG TABLET PO SCH (10:00)
[2018-12-13] MEDS ORDERED: ENOXAPARIN SODIUM INJ 40 MG/0.4 ML DISP.SYRIN SUBCUT SCH (10:00)
[2018-12-13] MEDS ORDERED: (PENDING PHARMACY ID) (Lansoprazole [Prevacid] 30 MG) PO SCH (10:00)
[2018-12-13] MEDS: CHOLECALCIFEROL (D3) 1,000 UNIT (25 MCG) TABLET PO SCH (11:00)
[2018-12-13] MEDS: LOSARTAN POTASSIUM 50 MG TABLET PO SCH (11:00)
[2018-12-13] MEDS ORDERED: METHOTREXATE SODIUM 2.5 MG TABLET PO SCH (11:00)
[2018-12-13] MEDS: MAGNESIUM OXIDE 400 MG TABLET PO SCH (11:01)
[2018-12-13] MEDS: PREDNISONE 10 MG TABLET PO SCH ×2 (11:01→17:33)
[2018-12-13] MEDS: FUROSEMIDE INJ/PF 40 MG/4 ML SDV IV SCH ×2 (11:02→23:10)
[2018-12-13] MEDS: FOLIC ACID 1 MG TABLET PO SCH (11:02)
[2018-12-13] MEDS: FAMOTIDINE 20 MG TABLET PO SCH (11:02)
[2018-12-13] MEDS: ALLOPURINOL 100 MG TABLET PO SCH (11:02)
[2018-12-13] MEDS ORDERED: DEXTROSE 50%-WATER SYRINGE 12.5 GM/25 ML DOSE IV PRN (13:30)
[2018-12-13] MEDS ORDERED: DEXTROSE 40% GEL 15 GM TUBE PO PRN (13:30)
[2018-12-13] MEDS ORDERED: GLUCAGON,HUMAN RECOMB 1 MG INJ IM PRN (13:30)
[2018-12-13] MEDS ORDERED: DEXTROSE 40% GEL 15 GM TUBE X 2 PO PRN (13:30)
[2018-12-13] MEDS ORDERED: DEXTROSE 50%-WATER SYRINGE 25 GM/50 ML DOSE IV PRN (13:30)
--- NOTE | 2018-12-13 14:16 | PDOC PROGRESS REPORT ---
Subjective Progress Note for:: 12/13/18 Subjective:: There was at the bedside when the patient took several bites of her lunch and proceeded to have a small amount of emesis. She states that she has not been nauseous all morning but just recently felt sick. She states that her breathing is slightly better. Reason For Visit: CHF EXACERBATION Physical Exam Vital Signs: Temp Pulse Resp BP Pulse Ox 98.7 F 75 18 149/57 H 100 12/13/18 13:14 12/13/18 13:14 12/13/18 13:14 12/13/18 13:14 12/13/18 13:14 Intake & Output 12/12/18 12/13/18 12/14/18 06:59 06:59 06:59 Intake Total 300 Output Total 200 Balance 300 -200 Weight 106.5 kg General appearance: PRESENT: cooperative, mild distress - Nausea with vomiting, morbidly obese, well-developed Head exam: PRESENT: atraumatic, normocephalic Respiratory exam: PRESENT: decreased breath sounds - Due to body habitus, rales - Possible faint, unlabored. ABSENT: rhonchi, tachypnea, wheezes Cardiovascular exam: PRESENT: RRR, +S1, +S2 GI/Abdominal exam: PRESENT: diminished bowel sounds - Hard to hear secondary to body habitus, distended - Pendulous abdomen, soft. ABSENT: tenderness Musculoskeletal exam: ABSENT: ambulatory Neurological exam: PRESENT: alert, awake, oriented to person, oriented to place, oriented to time, oriented to situation Psychiatric exam: PRESENT: flat affect. ABSENT: agitated, anxious Results Laboratory Results: 12/13/18 06:49 12/13/18 06:49 12/12/18 12/13/18 12/13/18 21:00 06:49 06:49 WBC 9.3 RBC 4.31 Hgb 11.1 L Hct 35.7 L MCV 83 MCH 25.7 L MCHC 31.1 L RDW 18.4 H Plt Count 257 Seg Neutrophils % 77.3 Carbonic Acid 1.33 HCO3/H2CO3 Ratio 17:1 ABG pH 7.34 L ABG pCO2 44.3 ABG pO2 73.5 L ABG HCO3 23.3 ABG O2 Saturation 93.9 L ABG Base Excess -2.6 FiO2 2 FLOW RATE Sodium 135.6 L Potassium 5.4 H Chloride 99 Carbon Dioxide 27 Anion Gap 10 BUN 40 H Creatinine 1.30 H Est GFR ( Amer) 47 L Glucose 151 H Calcium 9.2 Magnesium 2.2 Total Bilirubin 0.6 AST 19 Alkaline Phosphatase 100 Total Protein 6.6 Albumin 3.8 Triglycerides 63 Cholesterol 134.35 LDL Cholesterol Direct 71 VLDL Cholesterol 13.0 HDL Cholesterol 53 TSH 12/13/18 06:49 WBC RBC Hgb Hct MCV MCH MCHC RDW Plt Count Seg Neutrophils % Carbonic Acid HCO3/H2CO3 Ratio ABG pH ABG pCO2 ABG pO2 ABG HCO3 ABG O2 Saturation ABG Base Excess FiO2 Sodium Potassium Chloride Carbon Dioxide Anion Gap BUN Creatinine Est GFR ( Amer) Glucose Calcium Magnesium Total Bilirubin AST Alkaline Phosphatase Total Protein Albumin Triglycerides Cholesterol LDL Cholesterol Direct VLDL Cholesterol HDL Cholesterol TSH 2.15 12/12/18 12/12/18 12/12/18 11:55 12:58 18:00 Creatine Kinase 44 42 CK-MB (CK-2) 0.38 Troponin I < 0.012 NT-Pro-B Natriuret Pep 4820 H 12/12/18 12/13/18 12/13/18 18:00 00:10 00:10 Creatine Kinase 41 CK-MB (CK-2) 0.29 0.38 Troponin I < 0.012 < 0.012 NT-Pro-B Natriuret Pep 12/13/18 12/13/18 12/13/18 06:49 06:49 06:49 Creatine Kinase 42 CK-MB (CK-2) 0.43 Troponin I < 0.012 NT-Pro-B Natriuret Pep 6280 H Impressions: Chest X-Ray 12/12/18 11:26 IMPRESSION: Mild central vascular congestion. Small bilateral pleural effusions with bibasilar airspace opacities, may represent atelectasis or pneumonia. Assessment and Plan - Diagnosis (1) CHF exacerbation Qualifiers: Heart failure type: unspecified Qualified Code(s): I50.9 - Heart failure, unspecified Is this a current diagnosis for this admission?: Yes (2) Shortness of breath Is this a current diagnosis for this admission?: Yes (3) Atrial fibrillation Qualifiers: Atrial fibrillation type: longstanding persistent Qualified Code(s): I48.11 - Longstanding persistent atrial fibrillation Is this a current diagnosis for this admission?: Yes (4) Gout Qualifiers: Gout site: unspecified site Chronicity: unspecified Is this a current diagnosis for this admission?: Yes (5) HTN (hypertension) Qualifiers: Hypertension type: essential hypertension Qualified Code(s): I10 - Essential (primary) hypertension Is this a current diagnosis for this admission?: Yes (6) Obstructive sleep apnea Is this a current diagnosis for this admission?: Yes (7) Osteoarthritis Qualifiers: Osteoarthritis location: knee Osteoarthritis type: primary Laterality: bilateral Qualified Code(s): M17.0 - Bilateral primary osteoarthritis of knee Is this a current diagnosis for this admission?: Yes (8) Bradyarrhythmia Is this a current diagnosis for this admission?: Yes (9) Nausea and vomiting Qualifiers: Vomiting type: unspecified Vomiting Intractability: unspecified Qualified Code(s): R11.2 - Nausea with vomiting, unspecified Is this a current diagnosis for this admission?: Yes - Plan Summary Summary: .Acute on chronic exacerbation of CHF. Patient is going to be admitted to [facility]. Start on Lasix 40 mg IV twice daily. To continue oxygen 2 L nasal cannula. Repeat BNP tomorrow. GI prophylaxis initiated. Patient is already on warfarin at home. Daily weight will be requested. Smith's catheter in place. Blood cultures are requested to start on Levaquin 5 mg IV daily because the chest x-ray suggestive of possible atelectasis versus pneumonia. Fluid restriction will be implemented 1500 cc/day. Admitted as inpatient. Most likely in my opinion patient has systolic heart failure. 2.history of paroxysmal atrial fibrillation on warfarin INR is 1.44 to resume warfarin 5 mg daily and 7.5 mg on the weekends. To check PT/INR daily basis and the pharmacy will adjust the doses. 3.hypertension Blood pressure is 117/53 stable. Started on Lasix 40 mg IV twice daily and rest art losartan 50 mg daily. 4.morbid obesity Made is more than to 43.0 diet exercise weight loss discussed with the patient dietary consult will be requested. 5.osteoarthritis Has severe arthritis in the both knees to Tylenol every 6 hours PRN for pains. 6.gout Has history of gout denies any gout symptoms during this admission. And is to resume allopurinol. 7.patient has history of diabetes mellitus to check hemoglobin A1c and to place her on insulin sliding scale. 12/13/2018- The patient appears to be on 1 L nasal cannula and breathing comfortably. Her amlodipine is currently on hold. If her pressure increases we will resume the medication. She is still on losartan and she is getting furosemide for her renal failure. Her sotalol is on hold because of bradycardia arrhythmia with her atrial fibrillation. Heart rate was below 50. She is slowly improving. She continues on warfarin for her long-term anticoagulation for atrial fibrillation. She is on protocol and her goal INR is 2.0-3.0. We briefly discussed physical therapy but the patient is bedbound at home. She has a hospital bed with a trapeze. They state that because of her osteoarthritis in her knees she is unable to walk. Physical therapy did see the patient but reports greatly diminished function. Her morbid obesity is also a barrier to improvement. We will continue her allopurinol for gout. She did have a hemoglobin A1c of 7.3. At this point we will use diabetic diet. Consider adding metformin. Lives in room the patient did have a small amount of emesis. She does not report feeling sick all morning. I am not sure of the etiology. Antiemetics are available as needed. The patient reports no significant history of reflux. I will add Protonix in place of Pepcid. - Time Time Spent with patient: 15-24 minutes Medications reviewed and adjusted accordingly: Yes
[2018-12-13] MEDS: INSULIN LISPRO 100 UNIT/ML 3 ML VIAL SUBCUT SCH ×2 (16:55→23:09)
[2018-12-13] MEDS: MONTELUKAST SODIUM 10 MG TABLET PO SCH (17:33)
[2018-12-13] MEDS: ATORVASTATIN CALCIUM 10 MG TABLET PO SCH (23:09)
[2018-12-13] MEDS: WARFARIN SODIUM 5 MG TABLET PO SCH (23:09)
[2018-12-14] MEDS: PANTOPRAZOLE SODIUM 40 MG TABLET.DR PO SCH ×2 (06:46→17:04)
--- NOTE | 2018-12-14 07:33 | EKG REPORT ---
SEVERITY:- BORDERLINE ECG - SINUS RHYTHM BORDERLINE LEFT AXIS DEVIATION BORDERLINE R WAVE PROGRESSION, ANTERIOR LEADS : Confirmed by: Tony Mahoney MD 14-Dec-2018 07:32:20
[2018-12-14 07:40] LABS: AMORPHOUS SEDIMENT,URINE TRACE /HPF; APPEARANCE,URINE CLOUDY; BILIRUBIN,URINE NEGATIVE (NEGATIVE); COLOR,URINE YELLOW; GLUCOSE, URINE NEGATIVE (NEGATIVE); KETONES,URINE NEGATIVE (NEGATIVE); LEUKOCYTE ESTERASE,URINE LARGE (NEGATIVE); NITRITE,URINE NEGATIVE (NEGATIVE); PROTEIN,URINE NEGATIVE (NEGATIVE); UROBILINOGEN,URINE NEGATIVE mg/dL (<2.0)
[2018-12-14] MEDS: INSULIN LISPRO 100 UNIT/ML 3 ML VIAL SUBCUT SCH ×4 (08:00→23:52)
[2018-12-14 08:05] LABS: ANION GAP 10 (5-19); BLOOD UREA NITROGEN 34 mg/dL (7-20); CALCIUM 9.5 mg/dL (8.4-10.2); CARBON DIOXIDE 35 mmol/L (22-30); CHLORIDE 93 mmol/L (98-107); GLUCOSE 122 mg/dL (75-110); POTASSIUM 4.9 mmol/L (3.6-5.0)
[2018-12-14] MEDS: MAGNESIUM OXIDE 400 MG TABLET PO SCH (09:25)
[2018-12-14] MEDS: LOSARTAN POTASSIUM 50 MG TABLET PO SCH (09:25)
[2018-12-14] MEDS: FUROSEMIDE INJ/PF 40 MG/4 ML SDV IV SCH ×2 (09:25→23:39)
[2018-12-14] MEDS: FOLIC ACID 1 MG TABLET PO SCH (09:25)
[2018-12-14] MEDS: PREDNISONE 10 MG TABLET PO SCH ×2 (09:25→17:04)
[2018-12-14] MEDS: ALLOPURINOL 100 MG TABLET PO SCH (09:25)
[2018-12-14] MEDS: CHOLECALCIFEROL (D3) 1,000 UNIT (25 MCG) TABLET PO SCH (09:25)
--- NOTE | 2018-12-14 11:59 | PDOC PROGRESS REPORT ---
Subjective Progress Note for:: 12/14/18 Subjective:: Patient is resting on room air in bed. She appears comfortable. She has just finished breakfast. We had a long discussion about social issues at home that could be contributing to her status. She also admits to noncompliance with her furosemide dosing. Reason For Visit: CHF EXACERBATION Physical Exam Vital Signs: Temp Pulse Resp BP Pulse Ox 98.5 F 62 18 134/62 H 94 12/14/18 07:32 12/14/18 07:32 12/14/18 07:32 12/14/18 07:32 12/14/18 07:32 Intake & Output 12/13/18 12/14/18 12/15/18 06:59 06:59 06:59 Intake Total 300 770 Output Total 3375 Balance 300 -2605 Weight 106.5 kg 105 kg General appearance: PRESENT: no acute distress, cooperative, morbidly obese, well-developed Head exam: PRESENT: atraumatic, normocephalic Eye exam: PRESENT: conjunctiva pink. ABSENT: scleral icterus Ear exam: PRESENT: normal external ear exam. ABSENT: bleeding, drainage Respiratory exam: PRESENT: decreased breath sounds - At bases. Partly due to body habitus., symmetrical, unlabored. ABSENT: prolonged expiratory phas, rales, rhonchi, wheezes Cardiovascular exam: PRESENT: irregular rhythm, other - Distant heart sounds due to body habitus. GI/Abdominal exam: PRESENT: normal bowel sounds, soft, other - Pendulous abdomen. ABSENT: tenderness Gentrourinary exam: PRESENT: indwelling catheter Extremities exam: ABSENT: pedal edema Musculoskeletal exam: ABSENT: ambulatory Neurological exam: PRESENT: alert, awake, oriented to person, oriented to place, oriented to time, oriented to situation, CN II-XII grossly intact Psychiatric exam: PRESENT: appropriate affect. ABSENT: agitated, anxious Focused psych exam: ABSENT: delusional, restlessness Results Laboratory Results: 12/13/18 06:49 12/14/18 06:13 12/14/18 12/14/18 06:00 06:13 Sodium 138.0 Potassium 4.9 Chloride 93 L Carbon Dioxide 35 H Anion Gap 10 BUN 34 H Creatinine 0.96 Est GFR ( Amer) > 60 Glucose 122 H Calcium 9.5 Magnesium 2.0 Urine Color YELLOW Urine Appearance CLOUDY Urine pH 5.0 Ur Specific [place] 1.010 Urine Protein NEGATIVE Urine Glucose (UA) NEGATIVE Urine Ketones NEGATIVE Urine Blood LARGE H Urine Nitrite NEGATIVE Ur Leukocyte Esterase LARGE H Urine WBC (Auto) 23 Urine RBC (Auto) 119 12/12/18 12/12/18 12/12/18 11:55 12:58 18:00 Creatine Kinase 44 42 CK-MB (CK-2) 0.38 Troponin I < 0.012 NT-Pro-B Natriuret Pep 4820 H 12/12/18 12/13/18 12/13/18 18:00 00:10 00:10 Creatine Kinase 41 CK-MB (CK-2) 0.29 0.38 Troponin I < 0.012 < 0.012 NT-Pro-B Natriuret Pep 12/13/18 12/13/18 12/13/18 06:49 06:49 06:49 Creatine Kinase 42 CK-MB (CK-2) 0.43 Troponin I < 0.012 NT-Pro-B Natriuret Pep 6280 H Impressions: Chest X-Ray 12/12/18 11:26 IMPRESSION: Mild central vascular congestion. Small bilateral pleural effusions with bibasilar airspace opacities, may represent atelectasis or pneumonia. Assessment and Plan - Diagnosis (1) CHF exacerbation Qualifiers: Heart failure type: unspecified Qualified Code(s): I50.9 - Heart failure, unspecified Is this a current diagnosis for this admission?: Yes (2) Shortness of breath Is this a current diagnosis for this admission?: Yes (3) Atrial fibrillation Qualifiers: Atrial fibrillation type: longstanding persistent Qualified Code(s): I48.11 - Longstanding persistent atrial fibrillation Is this a current diagnosis for this admission?: Yes (4) Gout Qualifiers: Gout site: unspecified site Chronicity: unspecified Is this a current diagnosis for this admission?: Yes (5) HTN (hypertension) Qualifiers: Hypertension type: essential hypertension Qualified Code(s): I10 - Essential (primary) hypertension Is this a current diagnosis for this admission?: Yes (6) Obstructive sleep apnea Is this a current diagnosis for this admission?: Yes (7) Osteoarthritis Qualifiers: Osteoarthritis location: knee Osteoarthritis type: primary Laterality: bilateral Qualified Code(s): M17.0 - Bilateral primary osteoarthritis of knee Is this a current diagnosis for this admission?: Yes (8) Bradyarrhythmia Is this a current diagnosis for this admission?: Yes (9) Nausea and vomiting Qualifiers: Vomiting type: unspecified Vomiting Intractability: unspecified Qualified Code(s): R11.2 - Nausea with vomiting, unspecified Is this a current diagnosis for this admission?: Yes - Plan Summary Summary: .Acute on chronic exacerbation of CHF. Patient is going to be admitted to [facility]. Start on Lasix 40 mg IV twice daily. To continue oxygen 2 L nasal cannula. Repeat BNP tomorrow. GI prophylaxis initiated. Patient is already on warfarin at home. Daily weight will be requested. Smith's catheter in place. Blood cultures are requested to start on Levaquin 5 mg IV daily because the chest x-ray suggestive of possible atelectas is versus pneumonia. Fluid restriction will be implemented 1500 cc/day. Admitted as inpatient. Most likely in my opinion patient has systolic heart failure. 2.history of paroxysmal atrial fibrillation on warfarin INR is 1.44 to resume warfarin 5 mg daily and 7.5 mg on the weekends. To check PT/INR daily basis and the pharmacy will adjust the doses. 3.hypertension Blood pressure is 117/53 stable. Started on Lasix 40 mg IV twice daily and restart losartan 50 mg daily. 4.morbid obesity Made is more than to 43.0 diet exercise weight loss discussed with the patient dietary consult will be requested. 5.osteoarthritis Has severe arthritis in the both knees to Tylenol every 6 hours PRN for pains. 6.gout Has history of gout denies any gout symptoms during this admission. And is to resume allopurinol. 7.patient has history of diabetes mellitus to check hemoglobin A1c and to place her on insulin sliding scale. 12/13/2018- The patient appears to be on 1 L nasal cannula and breathing comfortably. Her amlodipine is currently on hold. If her pressure increases we will resume the medication. She is still on losartan and she is getting furosemide for her renal failure. Her sotalol is on hold because of bradycardia arrhythmia with her atrial fibrillation. Heart rate was below 50. She is slowly improving. She continues on warfarin for her long-term anticoagulation for atrial fibr illation. She is on protocol and her goal INR is 2.0-3.0. We briefly discussed physical therapy but the patient is bedbound at home. She has a hospital bed with a trapeze. They state that because of her osteoarthritis in her knees she is unable to walk. Physical therapy did see the patient but reports greatly diminished function. Her morbid obesity is also a barrier to improvement. We will continue her allopurinol for gout. She did have a hemoglobin A1c of 7.3. At this point we will use diabetic diet. Consider adding metformin. Lives in room the patient did have a small amount of emesis. She does not report feeling sick all morning. I am not sure of the etiology. Antiemetics are available as needed. The patient reports no significant history of reflux. I will add Protonix in place of Pepcid. 12/14/2018 The patient is feeling more comfortable. She is resting on room air. Her blood pressures are tending toward the low side still. Her pulse rates are above 60. She does report feeling better. She does not feel as weak. Her breathing is more comfortable. She is doing well on her current regimen and she is on an increased dose of furosemide compared to home. We did have a long discussion about compliance and she admitted that she does not take her furosemide regularly. Explained the importance of medication compliance and the fact that if she stayed on a low- salt diet, took her furosemide and lost weight she would probably be active again. Because of her immobility she reports having to get take out food brought to her. I suggested that she have whoever shops for her pickup multiple healthy choice or other frozen meals that would be sodium and carbohydrate friendly. She then went into a long discussion about social issues surrounding her at home. We touched on Medicaid and her inability to be approved due to her house and mortgage. She explained how much money she is putting towards her son (who is unemployed) as well as paying for his child support with his 2 children. I suggested that she sell everything and moved to assisted living. She does not feel that she could do this to her family but I did point out that there were taking significant advantage of her. From a cardiology standpoint we are holding some medications. She has seen Dr. Alexis in the past. I have asked Dr. Alexis to see the patient in consultation. He will see the patient within 24 hours. At this time there on a consistent carbohydrate cardiac diet. No medications for diabetes since her hemoglobin A1c was 7.3. Her sotalol is on hold and her pulse is improving. She is on warfarin. Her INR still subtherapeutic but I will give it 1 or 2 more days before changing the dose. INRs have been ordered daily. I would expect that she can return home in 1 or 2 days. She has very limited mobility and would not qualify for senior care. Please see physical therapy notes. - Time Time Spent with patient: 25-34 minutes Anticipated discharge: Home
[2018-12-14] MEDS: LEVALBUTEROL HCL NEB 0.63 MG/3 ML AMPUL NEB PRN ×2 (13:00→19:28)
[2018-12-14] MEDS: MONTELUKAST SODIUM 10 MG TABLET PO SCH (17:04)
[2018-12-14] MEDS ORDERED: WARFARIN SODIUM 7.5 MG TABLET PO SCH (22:00)
[2018-12-14 22:33] LABS: INTERNATIONAL RATION (INR) 1.84; PROTHROMBIN TIME 21.5 SEC (11.4-15.4)
[2018-12-14] MEDS: ATORVASTATIN CALCIUM 10 MG TABLET PO SCH (23:40)
[2018-12-15] MEDS: PANTOPRAZOLE SODIUM 40 MG TABLET.DR PO SCH ×2 (06:26→17:15)
[2018-12-15] MEDS: INSULIN LISPRO 100 UNIT/ML 3 ML VIAL SUBCUT SCH ×4 (08:24→23:04)
[2018-12-15] MEDS: PREDNISONE 10 MG TABLET PO SCH ×2 (10:05→17:15)
[2018-12-15] MEDS: FUROSEMIDE INJ/PF 40 MG/4 ML SDV IV SCH ×2 (10:05→23:04)
[2018-12-15] MEDS: ALLOPURINOL 100 MG TABLET PO SCH (10:05)
[2018-12-15] MEDS: MAGNESIUM OXIDE 400 MG TABLET PO SCH (10:05)
[2018-12-15] MEDS: LOSARTAN POTASSIUM 50 MG TABLET PO SCH (10:06)
[2018-12-15] MEDS: CHOLECALCIFEROL (D3) 1,000 UNIT (25 MCG) TABLET PO SCH (10:06)
[2018-12-15] MEDS: FOLIC ACID 1 MG TABLET PO SCH (10:06)
[2018-12-15] MEDS: LEVALBUTEROL HCL NEB 0.63 MG/3 ML AMPUL NEB PRN (12:45)
--- NOTE | 2018-12-15 16:14 | PDOC PROGRESS REPORT ---
Subjective Progress Note for:: 12/15/18 Subjective:: MAEGAN NARAYAN is a 83 year old female with history of congestive heart failure, osteoarthritis, hypertension, morbid obesity came to the emergency room with complaints of shortness of breath. She is bedbound because of the severe osteoarthritis affecting the both knees. Denies any cough denies any cold denies any headaches denies any dizzy spells denies any fevers. Denies any nausea vomiting diarrhea. She said she is supposed to be on Lasix but she is noncompliant. She admitted that she is gaining weight. Sleeps propped up position with 2 pillows. medical consult was called for possible admission. 12/15/2018. No acute events overnight, patient comfortably resting in bed in no apparent distress, complaining of chronic bilateral lower extremity pain due to severe arthritic knees, bedbound as a result, on supplemental oxygen, denies any fever, chills, nausea, vomiting, diarrhea, constipation or any urinary symptoms. Reason For Visit: CHF EXACERBATION Physical Exam Vital Signs: Temp Pulse Resp BP Pulse Ox 98.5 F 64 16 120/62 90 L 12/15/18 11:27 12/15/18 14:00 12/15/18 12:29 12/15/18 11:27 12/15/18 12:29 Intake & Output 12/14/18 12/15/18 12/16/18 06:59 06:59 06:59 Intake Total 770 1280 Output Total 3375 2200 Balance -2605 -920 Weight 105 kg 105 kg General appearance: PRESENT: morbidly obese Respiratory exam: PRESENT: clear to auscultation juan pablo, symmetrical Cardiovascular exam: PRESENT: irregular rhythm. ABSENT: diastolic murmur, rubs, systolic murmur GI/Abdominal exam: PRESENT: normal bowel sounds, soft. ABSENT: distended, guarding, mass, organolmegaly, rebound, tenderness Extremities exam: PRESENT: tenderness - Bilateral knee tenderness Musculoskeletal exam: PRESENT: tenderness Neurological exam: PRESENT: alert, awake, oriented to person, oriented to place, oriented to time, oriented to situation, CN II-XII grossly intact. ABSENT: motor sensory deficit Results Laboratory Results: 12/13/18 06:49 12/14/18 06:13 12/12/18 12/12/18 12/12/18 11:55 12:58 18:00 Creatine Kinase 44 42 CK-MB (CK-2) 0.38 Troponin I < 0.012 NT-Pro-B Natriuret Pep 4820 H 12/12/18 12/13/18 12/13/18 18:00 00:10 00:10 Creatine Kinase 41 CK-MB (CK-2) 0.29 0.38 Troponin I < 0.012 < 0.012 NT-Pro-B Natriuret Pep 12/13/18 12/13/18 12/13/18 06:49 06:49 06:49 Creatine Kinase 42 CK-MB (CK-2) 0.43 Troponin I < 0.012 NT-Pro-B Natriuret Pep 6280 H Impressions: Chest X-Ray 12/12/18 11:26 IMPRESSION: Mild central vascular congestion. Small bilateral pleural effusions with bibasilar airspace opacities, may represent atelectasis or pneumonia. Assessment & Plan - Diagnosis (1) CHF exacerbation Qualifiers: Heart failure type: combined systolic and diastolic Qualified Code(s): I5 0.43 - Acute on chronic combined systolic (congestive) and diastolic (congestive) heart failure Is this a current diagnosis for this admission?: Yes Plan: Acute on chronic CHF exacerbation. Likely combined systolic and diastolic heart failure. Denies any history of CAD. This could be due to chronic paroxysmal A. fib. No previous echo available. CXR heart size upper normal limits. BNP on admission 4820, 6280. Weight is 105 kg down from 108 kg on admission. Continue cardiac diet, fluid restriction, telemetry, supplemental oxygen, IV diuretics, MARIANA. Sotalol on hold due to bradycardia on admission. Patient sees Dr. Alexis as outpatient. Patient PCP and cardiology follow-up. (2) Atrial fibrillation Qualifiers: Atrial fibrillation type: longstanding persistent Qualified Code(s): I48.11 - Longstanding persistent atrial fibrillation Is this a current diagnosis for this admission?: Yes Plan: Rate controlled. Sotalol held due to bradycardia on admission. Will restart appropriate. Coagulated with Coumadin. INR subtherapeutic. Pharmacy adjusting dosage. Goal of INR 2-3. (3) Gout Qualifiers: Gout site: unspecified site Chronicity: unspecified Is this a current diagnosis for this admission?: Yes Plan: Acutely exacerbated. Restart home meds. (4) HTN (hypertension) Qualifiers: Hypertension type: essential hypertension Qualified Code(s): I10 - Essential (primary) hypertension Is this a current diagnosis for this admission?: Yes Plan: Controlled. SBP low 100s. Continue MARIANA, Lasix. Adjust dosage as needed. Outpatient PCP follow-up. (5) Obstructive sleep apnea Is this a current diagnosis for this admission?: Yes Plan: Continue nocturnal BiPAP. Outpatient pulmonology and nocturnal polysomnography. (6) Osteoarthritis Qualifiers: Osteoarthritis location: knee Osteoarthritis type: primary Laterality: bilateral Qualified Code(s): M17.0 - Bilateral primary osteoarthritis of knee Is this a current diagnosis for this admission?: Yes Plan: Severe bilateral lower knee osteoarthritis, patient bedbound as a result. Refuses to have a surgery. Patient may be a candidate for knee replacement in the future. Continue supportive measures, continue physical therapy. - Time Time Spent with patient: 25-34 minutes Anticipated discharge: Home with Homehealth Within: within 24 hours
[2018-12-15] MEDS: MONTELUKAST SODIUM 10 MG TABLET PO SCH (17:15)
[2018-12-15] MEDS: WARFARIN SODIUM 7.5 MG TABLET PO SCH (22:45)
[2018-12-15] MEDS: ATORVASTATIN CALCIUM 10 MG TABLET PO SCH (23:04)
[2018-12-16 00:02] LABS: INTERNATIONAL RATION (INR) 2.07; PROTHROMBIN TIME 23.6 SEC (11.4-15.4)
[2018-12-16] MEDS: PANTOPRAZOLE SODIUM 40 MG TABLET.DR PO SCH ×2 (05:22→17:17)
[2018-12-16 06:27] LABS: ABSOLUTE BASOPHILS # (AUTO) 0.2 10^3/uL (0.0-0.2); ABSOLUTE LYMPHOCYTES (AUTO) 1.9 10^3/uL (0.5-4.7); ABSOLUTE MONOCYTES (AUTO) 0.7 10^3/uL (0.1-1.4); ABSOLUTE NEUT (AUTO) 6.5 10^3/uL (1.7-8.2); BASOPHILS % (AUTO) 1.7 % (0-2); EOSINOPHILS % (AUTO) 0.3 % (0-6); HEMATOCRIT 40.1 % (36.0-47.0); HEMOGLOBIN 12.5 g/dL (12.0-15.5); LYMPHOCYTES % (AUTO) 20.2 % (13-45); MEAN CORPUSCULAR HEMOGLOBIN 25.5 pg (27.0-33.4); MEAN CORPUSCULAR HGB CONC 31.2 g/dL (32.0-36.0); MEAN CORPUSCULAR VOLUME 82 fl (80-97); PLATELET COUNT 226 10^3/uL (150-450); RED BLOOD COUNT 4.89 10^6/uL (3.72-5.28); RED CELL DISTRIBUTION WIDTH 17.8 % (11.5-14.0); SEGMENTED NEUTROPHILS % (AUTO) 69.8 % (42-78); TOTAL CELLS COUNTED % (AUTO) 100 %; WHITE BLOOD COUNT 9.3 10^3/uL (4.0-10.5)
[2018-12-16 06:44] LABS: BLOOD UREA NITROGEN 50 mg/dL (7-20); CALCIUM 9.3 mg/dL (8.4-10.2); CHLORIDE 88 mmol/L (98-107); GLUCOSE 148 mg/dL (75-110); POTASSIUM 4.5 mmol/L (3.6-5.0)
[2018-12-16 06:52] LABS: ANION GAP 12 (5-19); CARBON DIOXIDE 37 mmol/L (22-30)
[2018-12-16] MEDS: INSULIN LISPRO 100 UNIT/ML 3 ML VIAL SUBCUT SCH ×4 (08:03→21:56)
[2018-12-16] MEDS: FOLIC ACID 1 MG TABLET PO SCH (09:21)
[2018-12-16] MEDS: FUROSEMIDE INJ/PF 40 MG/4 ML SDV IV SCH (09:21)
[2018-12-16] MEDS: PREDNISONE 10 MG TABLET PO SCH ×2 (09:21→17:17)
[2018-12-16] MEDS: CHOLECALCIFEROL (D3) 1,000 UNIT (25 MCG) TABLET PO SCH (09:21)
[2018-12-16] MEDS: ALLOPURINOL 100 MG TABLET PO SCH (09:22)
[2018-12-16] MEDS: MAGNESIUM OXIDE 400 MG TABLET PO SCH (09:22)
[2018-12-16] MEDS: LOSARTAN POTASSIUM 50 MG TABLET PO SCH (09:22)
--- NOTE | 2018-12-16 09:32 | PDOC PROGRESS REPORT ---
Subjective Progress Note for:: 12/16/18 Subjective:: 83 year old female with history of congestive heart failure, osteoarthritis, hypertension, morbid obesity came to the emergency room with complaints of shortness of breath. She is bedbound because of the severe osteoarthritis affecting the both knees. Denies any cough denies any cold denies any headaches denies any dizzy spells denies any fevers. Denies any nausea vomiting diarrhea. She said she is supposed to be on Lasix but she is noncompliant. She admitted that she is gaining weight. Sleeps propped up position with 2 pillows. medical consult was called for possible admission. 12/14-Patient is resting on room air in bed. She appears comfortable. She has just finished breakfast. We had a long discussion about social issues at home that could be contributing to her status. She also admits to noncompliance with her furosemide dosing. 12/15/18-No acute events overnight, patient comfortably resting in bed in no apparent distress, complaining of chronic bilateral lower extremity pain due to severe arthritic knees, bedbound as a result, on supplemental oxygen, denies any fever, chills, nausea, vomiting, diarrhea, constipation or any urinary symptoms. [id number]-old female with multiple medical problem admitted with increasing shortness of breath. Noncompliant with Lasix. Also complained gain weight. Doing much better during the hospital stay. Pulse ox is 95% room air. No acute events in the last 24 hours. Afebrile. Reason For Visit: CHF EXACERBATION Physical Exam Vital Signs: Temp Pulse Resp BP Pulse Ox 98.7 F 59 L 16 124/72 100 12/16/18 07:42 12/16/18 07:42 12/16/18 07:42 12/16/18 07:42 12/16/18 07:42 Intake & Output 12/15/18 12/16/18 12/17/18 06:59 06:59 06:59 Intake Total 1280 400 Output Total 2200 2100 Balance -920 -1700 Weight 105 kg 105 kg General appearance: PRESENT: no acute distress, obese Head exam: PRESENT: atraumatic Eye exam: PRESENT: PERRLA Mouth exam: PRESENT: moist, tongue midline Teeth exam: PRESENT: poor dentation Neck exam: ABSENT: carotid bruit, JVD, lymphadenopathy, thyromegaly Respiratory exam: PRESENT: decreased breath sounds Cardiovascular exam: PRESENT: irregular rhythm, systolic murmur GI/Abdominal exam: PRESENT: normal bowel sounds, soft. ABSENT: distended, guarding, mass, organolmegaly, rebound, tenderness Rectal exam: PRESENT: deferred Extremities exam: PRESENT: full ROM. ABSENT: calf tenderness, clubbing, pedal edema Neurological exam: PRESENT: alert, awake, oriented to person, oriented to place, oriented to time, oriented to situation, CN II-XII grossly intact. ABSENT: motor sensory deficit Psychiatric exam: PRESENT: appropriate affect, normal mood. ABSENT: homicidal ideation, suicidal ideation Results Laboratory Results: 12/16/18 05:52 12/16/18 05:52 12/16/18 12/16/18 05:52 05:52 WBC 9.3 RBC 4.89 Hgb 12.5 Hct 40.1 MCV 82 MCH 25.5 L MCHC 31.2 L RDW 17.8 H Plt Count 226 Seg Neutrophils % 69.8 Sodium 137.0 Potassium 4.5 Chloride 88 L Carbon Dioxide 37 H Anion Gap 12 BUN 50 H Creatinine 1.10 Est GFR ( Amer) 58 L Glucose 148 H Calcium 9.3 12/12/18 12/12/18 12/12/18 11:55 12:58 18:00 Creatine Kinase 44 42 CK-MB (CK-2) 0.38 Troponin I < 0.012 NT-Pro-B Natriuret Pep 4820 H 12/12/18 12/13/18 12/13/18 18:00 00:10 00:10 Creatine Kinase 41 CK-MB (CK-2) 0.29 0.38 Troponin I < 0.012 < 0.012 NT-Pro-B Natriuret Pep 12/13/18 12/13/18 12/13/18 06:49 06:49 06:49 Creatine Kinase 42 CK-MB (CK-2) 0.43 Troponin I < 0.012 NT-Pro-B Natriuret Pep 6280 H Impressions: Chest X-Ray 12/12/18 11:26 IMPRESSION: Mild central vascular congestion. Small bilateral pleural effusions with bibasilar airspace opacities, may represent atelectasis or pneumonia. Assessment and Plan - Diagnosis (1) CHF exacerbation Qualifiers: Heart failure type: combined systolic and diastolic Qualified Code(s): I50.43 - Acute on chronic combined systolic (congestive) and diastolic (congestive) heart failure Is this a current diagnosis for this admission?: Yes (2) Shortness of breath Is this a current diagnosis for this admission?: Yes (3) Atrial fibrillation Qualifiers: Atrial fibrillation type: longstanding persistent Qualified Code(s): I48.11 - Longstanding persistent atrial fibrillation Is this a current diagnosis for this admission?: Yes (4) Gout Qualifiers: Gout site: unspecified site Chronicity: unspecified Is this a current diagnosis for this admission?: Yes (5) Hypertension Qualifiers: Is this a current diagnosis for this admission?: No (6) Obstructive sleep apnea Is this a current diagnosis for this admission?: Yes (7) Osteoarthritis Qualifiers: Osteoarthritis location: knee Osteoarthritis type: primary Laterality: bilateral Qualified Code(s): M17.0 - Bilateral primary osteoarthritis of knee Is this a current diagnosis for this admission?: Yes - Plan Summary Summary: .Acute on chronic exacerbation of CHF. Patient is going to be admitted to [facility]. Start on Lasix 40 mg IV twice daily. To continue oxygen 2 L nasal cannula. Repeat BNP tomorrow. GI prophylaxis initiated. Patient is already on warfarin at home. Daily weight will be requested. Smith's catheter in place. Blood cultures are requested to start on Levaquin 5 mg IV daily because the chest x-ray suggestive of possible atelectasis versus pneumonia. Fluid restriction will be implemented 1500 cc/day. Admitted as inpatient. Most likely in my opinion patient has systolic heart failure. 12/16/2018-patient admitted with acute on chronic exacerbation of CHF. Started on IV Lasix. Pulse ox is 95% on room air today. BNP is 6218 on 12/13/2018. Plan to recheck BNP tomorrow. 2.history of paroxysmal atrial fibrillation on warfarin INR is 1.44 to resume warfarin 5 mg daily and 7.5 mg on the weekends. To check PT/INR daily basis and the pharmacy will adjust the doses. 12/16/2018-patient has a history of paroxysmal atrial fibrillation on warfarin, INR today is 2.07. Fatigue. Plan is to continue the present dose of warfarin and pharmacy is managing the doses. 3.hypertension Blood pressure is 117/53 stable. Started on Lasix 40 mg IV twice daily and restart losartan 50 mg daily. 12/16/2018-patient has history of chronic essential hypertension blood pressure today is 127/68. Stable. Plan is to continue losartan 50 mg p.o. daily. 4.morbid obesity Made is more than to 43.0 diet exercise weight loss discussed with the patient dietary consult will be requested. 5.osteoarthritis Has severe arthritis in the both knees to Tylenol every 6 hours PRN for pains. 6.gout Has history of gout denies any gout symptoms during this admission. And is to resume allopurinol. 7.patient has history of diabetes mellitus to check hemoglobin A1c and to place her on insulin sliding scale. 12/16/2018-patient blood sugar today is 194 on insulin sliding scale before meals and at bedtime. Hemoglobin A1c is 7.3. Dietary education was provided during the hospital stay. Compliance with medications discussed with the patient. 12/13/2018- The patient appears to be on 1 L nasal cannula and breathing comfortably. Her amlodipine is currently on hold. If her pressure increases we will resume the medication. She is still on losartan and she is getting furosemide for her renal failure. Her sotalol is on hold because of bradycardia arrhythmia with her atrial fibrillation. Heart rate was below 50. She is slowly improving. She continues on warfarin for her long-term anticoagulation for atrial fibrillation. She is on protocol and her goal INR is 2.0-3.0. We briefly discussed physical therapy but the patient is bedbound at home. She has a hospital bed with a trapeze. They state that because of her osteoarthri tis in her knees she is unable to walk. Physical therapy did see the patient but reports greatly diminished function. Her morbid obesity is also a barrier to improvement. We will continue her allopurinol for gout. She did have a hemoglobin A1c of 7.3. At this point we will use diabetic diet. Consider adding metformin. Lives in room the patient did have a small amount of emesis. She does not r eport feeling sick all morning. I am not sure of the etiology. Antiemetics are available as needed. The patient reports no significant history of reflux. I will add Protonix in place of Pepcid. 12/14/2018 The patient is feeling more comfortable. She is resting on room air. Her blood pressures are tending toward the low side still. Her pulse rates are above 60. She does report feeling better. She does not feel as weak. Her breathing is more comfortable. She is doing well on her current regimen and she is on an increased dose of furosemide compared to home. We did have a long discussion about compliance and she admitted that she does not take her furosemide regularly. Explained the importance of medication compliance and the fact that if she stayed on a low- salt diet, took her furosemide and lost weight she would probably be active again. Because of her immobility she reports having to get take out food brought to her. I suggested that she have whoever shops for her pickup multiple healthy choice or other frozen meals that would be sodium and carbohydrate friendly. She then went into a long discussion about social issues surrounding her at home. We touched on Medicaid and her inability to be approved due to her house and mortgage. She explained how much money she is putting towards her son (who is unemployed) as well as paying for his child support with his 2 children. I suggested that she sell everything and moved to assisted living. She does not feel that she could do this to her family but I did point out that there were taking significant advantage of her. From a cardiology standpoint we are holding some medications. She has seen Dr. Alexis in the past. I have asked Dr. Alexis to see the patient in consultation. He will see the patient within 24 hours. At this time there on a consistent carbohydrate cardiac diet. No medications for diabetes since her hemoglobin A1c was 7.3. Her sotalol is on hold and her pulse is improving. She is on warfarin. Her INR still subtherapeutic but I will give it 1 or 2 more days before changing the do se. INRs have been ordered daily. I would expect that she can return home in 1 or 2 days. She has very limited mobility and would not qualify for [facility]. Please see physical therapy notes.
[2018-12-16] MEDS: FUROSEMIDE 40 MG TABLET PO SCH (09:48)
[2018-12-16] MEDS: MONTELUKAST SODIUM 10 MG TABLET PO SCH (17:17)
[2018-12-16] MEDS: ATORVASTATIN CALCIUM 10 MG TABLET PO SCH (21:56)
[2018-12-16] MEDS: WARFARIN SODIUM 5 MG TABLET PO SCH (21:58)
[2018-12-17 05:29] LABS: INTERNATIONAL RATION (INR) 1.86; PROTHROMBIN TIME 21.7 SEC (11.4-15.4)
[2018-12-17 05:35] LABS: ABSOLUTE BASOPHILS # (AUTO) 0.1 10^3/uL (0.0-0.2); ABSOLUTE NEUT (AUTO) 7.1 10^3/uL (1.7-8.2); BASOPHILS % (AUTO) 0.8 % (0-2); HEMATOCRIT 38.4 % (36.0-47.0); HEMOGLOBIN 12.1 g/dL (12.0-15.5); LYMPHOCYTES % (AUTO) 19.3 % (13-45); MEAN CORPUSCULAR HEMOGLOBIN 25.7 pg (27.0-33.4); MEAN CORPUSCULAR HGB CONC 31.4 g/dL (32.0-36.0); MEAN CORPUSCULAR VOLUME 82 fl (80-97); MONOCYTES % (AUTO) 10.3 % (3-13); PLATELET COUNT 251 10^3/uL (150-450); SEGMENTED NEUTROPHILS % (AUTO) 69.6 % (42-78); TOTAL CELLS COUNTED % (AUTO) 100 %; WHITE BLOOD COUNT 10.2 10^3/uL (4.0-10.5)
[2018-12-17 05:42] LABS: ALKALINE PHOSPHATASE 87 U/L (38-126); ANION GAP 7 (5-19); ASPARTATE AMINO TRANSFERASE 17 U/L (14-36); BILIRUBIN,DIRECT 0.2 mg/dL (0.0-0.4); BILIRUBIN,TOTAL 0.7 mg/dL (0.2-1.3); BLOOD UREA NITROGEN 53 mg/dL (7-20); CALCIUM 9.7 mg/dL (8.4-10.2); CARBON DIOXIDE 39 mmol/L (22-30); CHLORIDE 91 mmol/L (98-107); GLUCOSE 125 mg/dL (75-110); POTASSIUM 5.3 mmol/L (3.6-5.0); TOTAL PROTEIN 6.9 g/dL (6.3-8.2)
[2018-12-17] MEDS: PANTOPRAZOLE SODIUM 40 MG TABLET.DR PO SCH (06:02)
[2018-12-17] MEDS ORDERED: SODIUM POLYSTYRENE SULFONATE 15 GM/60 ML PO ONE (06:53)
[2018-12-17] MEDS: INSULIN LISPRO 100 UNIT/ML 3 ML VIAL SUBCUT SCH ×3 (08:27→17:03)
[2018-12-17] MEDS: ALLOPURINOL 100 MG TABLET PO SCH (09:38)
[2018-12-17] MEDS: CHOLECALCIFEROL (D3) 1,000 UNIT (25 MCG) TABLET PO SCH (09:38)
[2018-12-17] MEDS: MAGNESIUM OXIDE 400 MG TABLET PO SCH (09:38)
[2018-12-17] MEDS: FUROSEMIDE 40 MG TABLET PO SCH (09:38)
[2018-12-17] MEDS: PREDNISONE 10 MG TABLET PO SCH (09:38)
[2018-12-17] MEDS: FOLIC ACID 1 MG TABLET PO SCH (09:38)
[2018-12-17] MEDS: LOSARTAN POTASSIUM 50 MG TABLET PO SCH (09:38)
[2018-12-17 11:50] VITALS: BP 122/60
[2018-12-18] MEDS ORDERED: METHOTREXATE SODIUM 2.5 MG TABLET PO SCH (10:00)
--- NOTE | 2018-12-21 12:48 | PDOC DISCHARGE SUMMARY ---
Impression - Admit/DC Date/PCP Admission Date/Primary Care Provider: 12/12/18 14:54 ONUR CAMPO Discharge Date: 12/17/18 - Discharge Diagnosis (1) CHF exacerbation Is this a current diagnosis for this admission?: Yes (2) Shortness of breath Is this a current diagnosis for this admission?: Yes (3) Atrial fibrillation Is this a current diagnosis for this admission?: Yes (4) Gout Is this a current diagnosis for this admission?: Yes (5) Hypertension Is this a current diagnosis for this admission?: No (6) Obstructive sleep apnea Is this a current diagnosis for this admission?: Yes (7) Osteoarthritis Is this a current diagnosis for this admission?: Yes - Assessment Summary: .Acute on chronic exacerbation of CHF. Patient is going to be admitted to [facility]. Start on Lasix 40 mg IV twice daily. To continue oxygen 2 L nasal cannula. Repeat BNP tomorrow. GI prophylaxis initiated. Patient is already on warfarin at home. Daily weight will be requested. Smith's catheter in place. Blood cultures are requested to start on Levaquin 5 mg IV daily because the chest x-ray suggestive of possible atelectasis versus pneumonia. Fluid restriction will be implemented 1500 cc/day. Admitted as inpatient. Most likely in my opinion patient has systolic heart failure. 12/16/2018-patient admitted with acute on chronic exacerbation of CHF. Started on IV Lasix. Pulse ox is 95% on room air today. BNP is 6218 on 12/13/2018. Plan to recheck BNP tomorrow. 12/17/[id number]-yhkr-old female admitted with acute chronic exacerbation of CHF. BNP improved to 401. Discharged on Lasix 40 mg p.o. daily. 2.history of paroxysmal atrial fibrillation on warfarin INR is 1.44 to resume warfarin 5 mg daily and 7.5 mg on the weekends. To check PT/INR daily basis and the pharmacy will adjust the doses. 12/16/2018-patient has a history of paroxysmal atrial fibrillation on warfarin, INR today is 2.07. Fatigue. Plan is to continue the present dose of warfarin and pharmacy is managing the doses. 12/17/2018-patient has history of paroxysmal atrial fibrillation on Coumadin. INR on 12/17/2018 is 1.86. Patient is discharged on warfarin 5 mg p.o. daily. Patient's family strongly advised to follow-up with primary care physician to recheck PT/INR in 2 3 days. 3.hypertension Blood pressure is 117/53 stable. Started on Lasix 40 mg IV twice daily and restart losartan 50 mg daily. 12/16/2018-patient has history of chronic essential hypertension blood pressure today is 127/68. Stable. Plan is to continue losartan 50 mg p.o. daily. 12/17/2018-patient has history of chronic essential hypertension, blood pressure is 124/68. Stable. 4.morbid obesity Made is more than to 43.0 diet exercise weight loss discussed with the patient dietary consult will be requested. 5.osteoarthritis Has severe arthritis in the both knees to Tylenol every 6 hours PRN for pains. 6.gout Has history of gout denies any gout symptoms during this admission. And is to resume allopurinol. 7.patient has history of diabetes mellitus to check hemoglobin A1c and to place her on insulin sliding scale. 12/16/2018-patient blood sugar today is 194 on insulin sliding scale before meals and at bedtime. Hemoglobin A1c is 7.3. Dietary education was provided during the hospital stay. Compliance with medications discussed with the patient. 12/13/2018- The patient appears to be on 1 L nasal cannula and breathing comfortably. Her amlodipine is currently on hold. If her pressure increases we will resume the medication. She is still on losartan and she is getting furosemide for her renal failure. Her sotalol is on hold because of bradycardia arrhythmia with her atrial fibrillation. Heart rate was below 50. She is slowly improving. She continues on warfarin for her long-term anticoagulation for atrial fibrillation. She is on protocol and her goal INR is 2.0-3.0. We briefly discussed physical therapy but the patient is bedbound at home. She has a hospital bed with a trapeze. They state that because of her osteoarthritis in her knees she is unable to walk. Physical therapy did see the patient but reports greatly diminished function. Her morbid obesity is also a barrier to improvement. We will continue her allopurinol for gout. She did have a hemoglobin A1c of 7.3. At this point we will use diabetic diet. Consider adding metformin. Lives in room the patient did have a small amount of emesis. She does not report feeling sick all morning. I am not sure of the etiology. Antiemetics are available as needed. The patient reports no significant history of reflux. I will add Protonix in place of Pepcid. 12/14/2018 The patient is feeling more comfortable. She is resting on room air. Her blood pressures are tending toward the low side still. Her pulse rates are above 60. She does report feeling better. She does not feel as weak. Her breathing is more comfortable. She is doing well on her current regimen and she is on an increased dose of furosemide compared to home. We did have a long discussion about compliance and she admitted that she does not take her furosemide regularly. Explained the importance of medication compliance and the fact that if she stayed on a low- salt diet, took her furosemide and lost weight she would probably be active again. Because of her immobility she reports having to get take out food anne t to her. I suggested that she have whoever shops for her pickup multiple healthy choice or other frozen meals that would be sodium and carbohydrate friendly. She then went into a long discussion about social issues surrounding her at home. We touched on Medicaid and her inability to be approved due to her house and mortgage. She explained how much money she is putting towards her son (who is unemployed) as well as paying for his child support with his 2 children. I suggested that she sell everything and moved to assisted living. She does not feel that she could do this to her family but I did point out that there were taking significant advantage of her. From a cardiology standpoint we are holding some medications. She has seen Dr. Griffith in the past. I have asked Dr. Griffith to see the patient in consultation. He will see the patient within 24 hours. At this time there on a consistent carbohydrate cardiac diet. No medications for diabetes since her hemoglobin A1c was 7.3. Her sotalol is on hold and her pulse is improving. She is on warfarin. Her INR still subtherapeutic but I will give it 1 or 2 more days before changing the dose. INRs have been ordered daily. I would expect that she can return home in 1 or 2 days. She has very limited mobility and would not qualify for long-term. Please see physical therapy notes. - Additional Information Resuscitation Status: Full Code Discharge Diet: Cardiac Discharge Activity: Activity As Tolerated, Balance Activity w/Rest, Weigh Daily Referrals: ONUR CAMPO MD [Primary Care Provider] - 12/23/18 1:00 pm GINETTE GRIFFITH MD [ACTIVE STAFF] - 12/25/18 11:45 am Prescriptions: Furosemide [Lasix 40 mg Tablet] 40 mg PO QAM #30 tablet Home Medications: Albuterol Sulfate [Proair HFA Inhalation Aerosol 8.5 gm MDI] 2 puff IH Q4HP PRN 12/12/18 Allopurinol [Zyloprim 100 mg Tablet] 100 mg PO DAILY 12/12/18 Amlodipine Besylate [Norvasc 10 mg Tablet] 10 mg PO DAILY 12/12/18 Atorvastatin Calcium [Lipitor 20 mg Tablet] 20 mg PO QHS 12/12/18 Cholecalciferol (Vitamin D3) [Vitamin D3 2000 unit Tablet] 2,000 mg PO DAILY 12/12/18 Folic Acid [Folvite 1 mg Tablet] 1 mg PO DAILY 12/12/18 Lansoprazole [Prevacid] 30 mg PO DAILY 12/12/18 Losartan Potassium [Cozaar 100 mg Tablet] 100 mg PO DAILY 12/12/18 Magnesium Oxide [Mag-Ox 400 mg Tablet] 400 mg PO DAILY 12/12/18 Methotrexate Sodium [Rheumatrex 2.5 mg Tablet] 7.5 mg PO SA@219912/12/18 Montelukast Sodium [Singulair 10 mg Tablet] 10 mg PO QPM 12/12/18 Sotalol HCl [Betapace] 120 mg PO DAILY 12/12/18 Warfarin Sodium [Coumadin 5 mg Tablet] 5 mg PO SUMOWEFR@219912/12/18 Warfarin Sodium [Coumadin 5 mg Tablet] 7.5 mg PO TUTHSA@219912/12/18 Furosemide [Lasix 40 mg Tablet] 40 mg PO QAM #30 tablet 12/17/18 History of Present Illiness History of Present Illness: MAEGAN NARAYAN is a 83 year old female with history of congestive heart failure, osteoarthritis, hypertension, morbid obesity came to the emergency room with complaints of shortness of breath. She is bedbound because of the severe osteoarthritis affecting the both knees. Denies any cough denies any cold denies any headaches denies any dizzy spells denies any fevers. Denies any nausea vomiting diarrhea. She said she is supposed to be on Lasix but she is noncompliant. She admitted that she is gaining weight. Sleeps propped up position with 2 pillows. medical consult was called for possible admission. Hospital Course Hospital Course: 83 year old female with history of congestive heart failure, osteoarthritis, hypertension, morbid obesity came to the emergency room with complaints of shortness of breath. She is bedbound because of the severe osteoarthritis affecting the both knees. Denies any cough denies any cold denies any headaches denies any dizzy spells denies any fevers. Denies any nausea vomiting diarrhea. She said she is supposed to be on Lasix but she is noncompliant. She admitted that she is gaining weight. Sleeps propped up position with 2 pillows. medical consult was called for possible admission. 12/14-Patient is resting on room air in bed. She appears comfortable. She has just finished breakfast. We had a long discussion about social issues at home that could be contributing to her status. She also admits to noncompliance with her furosemide dosing. 12/15/18-No acute events overnight, patient comfortably resting in bed in no apparent distress, complaining of chronic bilateral lower extremity pain due to severe arthritic knees, bedbound as a result, on supplemental oxygen, denies any fever, chills, nausea, vomiting, diarrhea, constipation or any urinary symptoms. 12/16/[id number]-unjb-old female with multiple medical problem admitted with increasing shortness of breath. Noncompliant with Lasix. Also complained gain weight. Doing much better during the hospital stay. Pulse ox is 95% room air. No acute events in the last 24 hours. Afebrile. 12/17/[id number]-vqte-old female with multiple medical problems admitted for increasing shortness of breath. Patient was discharged home on p.o. Lasix. Patient was advised to be compliant with medications. She was strongly advised to follow-up with Dr. campo in 3 to 5 days. Physical Exam Vital Signs: Temp Pulse Resp BP Pulse Ox 98.1 F 65 16 122/60 95 12/17/18 11:46 12/17/18 12:00 12/17/18 12:00 12/17/18 11:46 12/17/18 12:00 General appearance: PRESENT: no acute distress, obese Head exam: PRESENT: atraumatic Eye exam: PRESENT: PERRLA Mouth exam: PRESENT: neck supple Teeth exam: PRESENT: poor dentation Neck exam: ABSENT: carotid bruit, JVD, lymphadenopathy, thyromegaly Respiratory exam: PRESENT: decreased breath sounds Cardiovascular exam: PRESENT: irregular rhythm GI/Abdominal exam: PRESENT: normal bowel sounds, soft. ABSENT: distended, guarding, mass, organolmegaly, rebound, tenderness Rectal exam: PRESENT: deferred Extremities exam: PRESENT: full ROM. ABSENT: calf tenderness, clubbing, pedal edema Neurological exam: PRESENT: alert, awake, oriented to person, oriented to place, oriented to time, oriented to situation, CN II-XII grossly intact. ABSENT: motor sensory deficit Psychiatric exam: PRESENT: appropriate affect, normal mood. ABSENT: homicidal ideation, suicidal ideation Results Laboratory Results: WBC 10.2 10^3/uL (4.0-10.5) 12/17/18 04:26 RBC 4.70 10^6/uL (3.72-5.28) 12/17/18 04:26 Hgb 12.1 g/dL (12.0-15.5) 12/17/18 04:26 Hct 38.4 % (36.0-47.0) 12/17/18 04:26 MCV 82 fl (80-97) 12/17/18 04:26 MCH 25.7 pg (27.0-33.4) L 12/17/18 04:26 MCHC 31.4 g/dL (32.0-36.0) L 12/17/18 04:26 RDW 18.0 % (11.5-14.0) H 12/17/18 04:26 Plt Count 251 10^3/uL (150-450) 12/17/18 04:26 Lymph % (Auto) 19.3 % (13-45) 12/17/18 04:26 Kay % (Auto) 10.3 % (3-13) 12/17/18 04:26 Eos % (Auto) 0.0 % (0-6) 12/17/18 04:26 Baso % (Auto) 0.8 % (0-2) 12/17/18 04:26 Absolute Neuts (auto) 7.1 10^3/uL (1.7-8.2) 12/17/18 04:26 Absolute Lymphs (auto) 2.0 10^3/uL (0.5-4.7) 12/17/18 04:26 Absolute Monos (auto) 1.0 10^3/uL (0.1-1.4) 12/17/18 04:26 Absolute Eos (auto) 0.0 10^3/uL (0.0-0.6) 12/17/18 04:26 Absolute Basos (auto) 0.1 10^3/uL (0.0-0.2) 12/17/18 04:26 Seg Neutrophils % 69.6 % (42-78) 12/17/18 04:26 PT 21.7 SEC (11.4-15.4) H 12/17/18 04:26 INR 1.86 12/17/18 04:26 APTT 31.6 SEC (23.5-35.8) 12/12/18 11:55 Carbonic Acid 1.33 mmol/L (1.05-1.35) 12/12/18 21:00 HCO3/H2CO3 Ratio 17:1 12/12/18 21:00 ABG pH 7.34 (7.35-7.45) L 12/12/18 21:00 ABG pCO2 44.3 mmHg (35-45) 12/12/18 21:00 ABG pO2 73.5 mmHg (80-100) L 12/12/18 21:00 ABG HCO3 23.3 mmol/L (20-24) 12/12/18 21:00 ABG Total CO2 24.6 mmol/L (21-25) 12/12/18 21:00 ABG O2 Saturation 93.9 % (94-98) L 12/12/18 21:00 ABG Base Excess -2.6 mmol/L 12/12/18 21:00 FiO2 2 FLOW RATE 12/12/18 21:00 Sodium 137.1 mmol/L (137-145) 12/17/18 04:26 Potassium 5.3 mmol/L (3.6-5.0) H 12/17/18 04:26 Chloride 91 mmol/L (98-107) L 12/17/18 04:26 Carbon Dioxide 39 mmol/L (22-30) H 12/17/18 04:26 Anion Gap 7 (5-19) 12/17/18 04:26 BUN 53 mg/dL (7-20) H 12/17/18 04:26 Creatinine 1.22 mg/dL (0.52-1.25) 12/17/18 04:26 Est GFR ( Amer) 51 (>60) L 12/17/18 04:26 Est GFR (MDRD) Non-Af 42 (>60) L 12/17/18 04:26 Glucose 125 mg/dL (75-110) H 12/17/18 04:26 POC Glucose 160 mg/dL (70-110) H 12/17/18 11:40 Hemoglobin A1c % 7.3 % (4.7-6.0) H 12/13/18 06:49 Calcium 9.7 mg/dL (8.4-10.2) 12/17/18 04:26 Magnesium 2.1 mg/dL (1.6-2.3) 12/17/18 04:26 Total Bilirubin 0.7 mg/dL (0.2-1.3) 12/17/18 04:26 Direct Bilirubin 0.2 mg/dL (0.0-0.4) 12/17/18 04:26 Neonat Total Bilirubin Not Reportable 12/17/18 04:26 Neonat Direct Bilirubin Not Reportable 12/17/18 04:26 Neonat Indirect Bili Not Reportable 12/17/18 04:26 AST 17 U/L (14-36) 12/17/18 04:26 ALT 15 U/L (<35) 12/17/18 04:26 Alkaline Phosphatase 87 U/L (38-126) 12/17/18 04:26 Creatine Kinase 42 U/L (30-135) 12/13/18 06:49 CK-MB (CK-2) 0.43 ng/mL (<4.55) 12/13/18 06:49 Troponin I < 0.012 ng/mL 12/13/18 06:49 NT-Pro-B Natriuret Pep 401 pg/mL (<450) 12/17/18 04:26 Total Protein 6.9 g/dL (6.3-8.2) 12/17/18 04:26 Albumin 4.0 g/dL (3.5-5.0) 12/17/18 04:26 Triglycerides 63 mg/dL (<150) 12/13/18 06:49 Cholesterol 134.35 mg/dL (0-200) 12/13/18 06:49 LDL Cholesterol Direct 71 mg/dL (<100) 12/13/18 06:49 VLDL Cholesterol 13.0 mg/dL (10-31) 12/13/18 06:49 HDL Cholesterol 53 mg/dL (>40) 12/13/18 06:49 TSH 2.15 uIU/mL (0.47-4.68) 12/13/18 06:49 Urine Color YELLOW 12/14/18 06:00 Urine Appearance CLOUDY 12/14/18 06:00 Urine pH 5.0 (5.0-9.0) 12/14/18 06:00 Ur Specific [place] 1.010 12/14/18 06:00 Urine Protein NEGATIVE mg/dL (NEGATIVE) 12/14/18 06:00 Urine Glucose (UA) NEGATIVE mg/dL (NEGATIVE) 12/14/18 06:00 Urine Ketones NEGATIVE mg/dL (NEGATIVE) 12/14/18 06:00 Urine Blood LARGE (NEGATIVE) H 12/14/18 06:00 Urine Nitrite NEGATIVE (NEGATIVE) 12/14/18 06:00 Urine Bilirubin NEGATIVE (NEGATIVE) 12/14/18 06:00 Urine Urobilinogen NEGATIVE mg/dL (<2.0) 12/14/18 06:00 Ur Leukocyte Esterase LARGE (NEGATIVE) H 12/14/18 06:00 Urine WBC (Auto) 23 /HPF 12/14/18 06:00 Urine RBC (Auto) 119 /HPF 12/14/18 06:00 Urine Bacteria (Auto) 1+ /HPF 12/14/18 06:00 Squamous Epi Cells Auto 3 /HPF 12/14/18 06:00 Amorphous Sediment Auto TRACE /HPF 12/14/18 06:00 Urine Mucus (Auto) RARE /LPF 12/14/18 06:00 Urine Ascorbic Acid NEGATIVE (NEGATIVE) 12/14/18 06:00 12/12/18 12/12/18 12/13/18 12:58 18:00 00:10 CK-MB (CK-2) 0.38 0.29 0.38 Troponin I < 0.012 < 0.012 < 0.012 NT-Pro-B Natriuret Pep 4820 H 12/13/18 12/13/18 12/17/18 06:49 06:49 04:26 CK-MB (CK-2) 0.43 Troponin I < 0.012 NT-Pro-B Natriuret Pep 6280 H 401 Impressions: Chest X-Ray 12/12/18 11:26 IMPRESSION: Mild central vascular congestion. Small bilateral pleural effusions with bibasilar airspace opacities, may represent atelectasis or pneumonia. Plan Time Spent: Greater than 30 Minutes Stroke Is this a Stroke Patient?: No Acute Heart Failure - Is this a Heart Failure Patient?: No
== END 2018-12-17 18:30 | disposition home health service (06) | DRG 292 ==
LOC: ER 11:12 → EH 14:54 → 3N 18:28
PROVIDERS: ADMIT Internal Medicine; ATTEND Internal Medicine
DX: I11.0 Hypertensive heart disease with heart failure (principal); Z68.41 Body mass index [BMI] 40.0-44.9, adult; I50.43 Acute on chronic combined systolic (congestive) and diastolic (congestive) heart failure; I48.0 Paroxysmal atrial fibrillation; J44.9 Chronic obstructive pulmonary disease, unspecified; I49.8 Other specified cardiac arrhythmias; E11.9 Type 2 diabetes mellitus without complications; G47.33 Obstructive sleep apnea (adult) (pediatric); M17.0 Bilateral primary osteoarthritis of knee; I73.9 Peripheral vascular disease, unspecified; K21.9 Gastro-esophageal reflux disease without esophagitis; M06.9 Rheumatoid arthritis, unspecified; M19.90 Unspecified osteoarthritis, unspecified site; E66.01 Morbid (severe) obesity due to excess calories; M10.9 Gout, unspecified; Z86.718 Personal history of other venous thrombosis and embolism; Z79.01 Long term (current) use of anticoagulants; Z88.0 Allergy status to penicillin; Z82.49 Family history of ischemic heart disease and other diseases of the circulatory system; Z74.01 Bed confinement status; Z91.14 Patient's other noncompliance with medication regimen; Z90.49 Acquired absence of other specified parts of digestive tract; Z90.710 Acquired absence of both cervix and uterus; Z79.899 Other long term (current) drug therapy; Z88.8 Allergy status to other drugs, medicaments and biological substances; Z59.8 Other problems related to housing and economic circumstances; Z23 Encounter for immunization
CPT/HCPCS: 36415; 51702; 71045; 80048; 80053; 80061; 81001; 82550; 82553; 82803; 82962; 83036; 83735; 83880; 84443; 84484; 85025; 85610; 85730; 87040; 90686; 93005; 93010; 94640; 99285; J1815; J1940; J1956; J2405; J3490; J7512; J7614

== ENCOUNTER → 2019-01-08 | Outpatient (CLI) | payer MEDICARE, OTHER ==
--- NOTE | 2019-01-08 13:02 | WOMENS IMAGING REPORT ---
EXAM DESCRIPTION: BILAT SCREENING MAMMO W/CAD COMPLETED DATE/TIME: 01/08/2019 11:44 am REASON FOR STUDY: Z12.31 SCREENING MAMMO Z12.31 ENCNTR SCREEN MAMMOGRAM FOR MALIGNANT NEOPLASM OF B RE COMPARISON: [id number] EXAM PARAMETERS: Standard craniocaudal and mediolateral oblique views of each breast recorded using digital acquisition. Read with the assistance of CAD. .[facility] [employer] Emergency Operator Version 9.2 LIMITATIONS: Positioning. FINDINGS: Findings present which are benign by mammographic criteria. No suspicious masses, calcifi cations or architectural distortion. Pertinent benign findings: Fibrocystic change. Calcifications. Benign mammographic findings may include one or more of the following: Smooth masses, popcorn/rim/co arse calcifications, asymmetries, post-procedure changes, and lesions with long-standing stability. IMPRESSION: BENIGN MAMMOGRAPHIC FINDINGS. BIRADS 2 BREAST DENSITY: b. There are scattered areas of fibroglandular density. BIRAD: ASSESSMENT: 2 BENIGN FINDING(S) RECOMMENDATION: ROUTINE SCREENING COMMENT: The patient has been notified of the results by letter per SA requirements. Additional no tification policies are in place for contacting patient with suspicious or incomplete findings. Quality ID #[id number]: The [employer] recommends an annual screening mammogram for women aged 40 years or over. This facility utilizes a reminder system to ensure that all patients receive reminder letters, and/or direct phone calls for appointments. This includes reminders for routine scr eening mammograms, diagnostic mammograms, or other Breast Imaging Interventions when appropriate. Th is patient will be placed in the appropriate reminder system. TECHNICAL DOCUMENTATION: FINDING NUMBER: (1) ASSESSMENT: (1) JOB ID: [id number] [employer]- All Rights Reserved Reading location - IP/workstation name: [facility]-
== END ==
LOC: WI 11:10
PROVIDERS: ATTEND Internal Medicine
DX: Z12.31 Encounter for screening mammogram for malignant neoplasm of breast (principal)
CPT/HCPCS: 77067

== ENCOUNTER → 2019-01-28 | Outpatient (CLI) | payer MEDICARE, OTHER ==
--- NOTE | 2019-01-31 13:40 | XCELERA REPORT ---
[address] [address] Transthoracic Echocardiogram Report Name: MAEGAN NARAYAN Age: 83 yrs Gender: Female : 1935 Patient Status: Outpatient Patient Location: Study Date: 01/28/2019 02:11 PM Procedure: A two-dimensional transthoracic echocardiogram with color flow and Doppler was performed. Study Quality: Technically suboptimal. The study was technically difficult with many images being suboptimal in quality. Reason For Study: ATRIAL FIBRILLATION History: ATRIAL FIBRILLATION. Ordering Physician: LOUISA GRIFFITH Performed By: Trupti Small Interpretation Summary The left ventricle is normal in size. LV EF is > than 60% Left ventricular systolic function is normal. Doppler measurements suggest impaired left ventricular relaxation, which is associated with grade I/IV or mild diastolic dysfunction The left ventricular wall motion is normal. There is no thrombus. Cannot assess ASD ,VSD , or PFO. The right ventricle is not well visualized secondary to technical limitations The right atrium is normal. There is no evidence of mitral valve prolapse. There is no vegetation seen on the mitral valve. There is no mitral valve stenosis. There is no aortic valvular vegetation. There is no aortic valve stenosis There is no LVOT obstruction. No aortic regurgitation is present. There is no tricuspid stenosis. There is a trace amount of tricuspid regurgitation There is mild pulmonary hypertension by echo RVSP is 40 to 45 mm of Hg , with RA mean of 5 to 10. There is no pulmonic valvular stenosis. There is a trace amount of pulmonic regurgitation The aortic root is normal size. The inferior vena cava appeared normal and decreased > 50% with respiration (RAP 5-10 mmHg) There is no pericardial effusion. MMode/2D Measurements & Calculations RVDd: 2.6 cm LVIDd: 3.6 cm FS: 24.3 % Ao root diam: 3.0 cm IVSd: 1.3 cm LVIDs: 2.7 cm EDV(Teich): 54.3 ml Ao root area: 7.3 cm2 LVPWd: 0.99 cm ESV(Teich): 27.5 ml EF(Teich): 49.2 % LA dimension: 3.1 cm Doppler Measurements & Calculations MV E max siobhan: MV P1/2t max siobhan: Ao V2 max: LV V1 max P.1 cm/sec 69.1 cm/sec 142.7 cm/sec 7.5 mmHg MV A max siobhan: MV P1/2t: 93.8 msec Ao max P.1 mmHg LV V1 max: 70.6 cm/sec 136.5 cm/sec MV E/A: 0.97 MVA(P1/2t): 2.3 cm2 MV dec slope: 215.7 cm/sec2 MV dec time: 0.33 sec PA V2 max: TR max siobhan: MV P1/2t-pr_phl: 97.2 cm/sec 295.9 cm/sec 93.8 msec PA max PG: TR max P.0 mmHg 3.8 mmHg Left Ventricle The left ventricle is normal in size. There is normal left ventricular wall thickness. LV EF is > than 60%. Left ventricular systolic function is normal. Doppler measurements suggest impaired left ventricular relaxation, which is associated with grade I/IV or mild diastolic dysfunction. The left ventricular wall motion is normal. There is no thrombus. Cannot assess ASD ,VSD , or PFO. Right Ventricle The right ventricle is not well visualized secondary to technical limitations. Atria The right atrium is normal. The left atrial size is normal. Mitral Valve There is no evidence of mitral valve prolapse. There is no vegetation seen on the mitral valve. There is no mitral valve stenosis. There is a trace amount of mitral regurgitation. Aortic Valve There is no aortic valvular vegetation. There is no aortic valve stenosis. There is no LVOT obstruction. No aortic regurgitation is present. Tricuspid Valve There is no tricuspid stenosis. There is a trace amount of tricuspid regurgitation. There is mild pulmonary hypertension by echo. RVSP is 40 to 45 mm of Hg , with RA mean of 5 to 10. Pulmonic Valve There is no pulmonic valvular stenosis. There is a trace amount of pulmonic regurgitation. Great Vessels The aortic root is normal size. The inferior vena cava appeared normal and decreased > 50% with respiration (RAP 5-10 mmHg). Effusions There is no pericardial effusion. : LOUISA GRIFFITH Lakshmi
== END ==
LOC: SP 12:25
PROVIDERS: ATTEND Specialist
DX: I48.0 Paroxysmal atrial fibrillation (principal)
CPT/HCPCS: 93306

== ENCOUNTER 2019-03-02 11:18 | Emergency (ER) | payer MEDICARE, OTHER ==
--- NOTE | 2019-03-02 12:10 | ER Document Report ---
Entered by IRENE ARTIS SCRIBE 03/02/19 1129 Acting as scribe for:ROSEY QUINTANA MD ED General - General Chief Complaint: Black/Tarry Stools Stated Complaint: DARK STOOLS Time Seen by Provider: 03/02/19 11:26 Primary Care Provider: GINETTE GRIFFITH MD [ACTIVE STAFF] - Follow up as needed Information source: Patient, [facility] Records Notes: This 83 year old female patient brought in by EMS presents to the ED today with complaints of black, tarry stools that occurred this morning. Patient had a loose stools and took Pepto-Bismol on Friday. Patient states that she had two bowel movements yesterday and the first one was normal, but the second was loose, so she took some more Pepto Bismol. 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 TRAVEL OUTSIDE OF THE [place] IN LAST 30 DAYS: No - Related Data Allergies/Adverse Reactions: Penicillins Allergy (Verified 12/12/18 15:09) Past Medical History - General Information source: Patient, [facility] Records - Social History Smoking Status: Never Smoker Cigarette use (# per day): No Chew tobacco use (# tins/day): No Smoking Education Provided: No Family History: Arthritis, Hypertension - Past Medical History Cardiac Medical History: Reports: Hx Atrial Fibrillation - intermittent, Hx Congestive Heart Failure, Hx DVT, Hx Hypercholesterolemia, Hx Hypertension, Hx Peripheral Vascular Disease Pulmonary Medical History: Reports: Hx Asthma, Hx COPD Endocrine Medical History: Reports: Hx Diabetes Mellitus Type 2 GI Medical History: Reports: Hx Gastroesophageal Reflux Disease Musculoskeletal Medical History: Reports Hx Arthritis - RA, 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, Reports Hx Musculoskeletal Deformity, Reports Hx Musculoskeletal Trauma Past Surgical History: Reports: Hx Cardiac Surgery - implanted monitor, Hx Cholecystectomy, Hx Hysterectomy, Hx Tonsillectomy - Immunizations Hx Diphtheria, Pertussis, Tetanus Vaccination: Yes Hx Pneumococcal Vaccination: 03/11/18 Review of Systems - Review of Systems Constitutional: No symptoms reported EENT: No symptoms reported Cardiovascular: No symptoms reported Respiratory: No symptoms reported Gastrointestinal: See HPI, Black stools, Last bowel movement - prior to arrival Genitourinary: No symptoms reported Female Genitourinary: No symptoms reported Musculoskeletal: No symptoms reported Skin: No symptoms reported Hematologic/Lymphatic: No symptoms reported Neurological/Psychological: No symptoms reported -: Yes All other systems reviewed and negative Physical Exam - Vital signs Vitals: Pulse Resp BP Pulse Ox 70 13 129/73 H 96 03/02/19 11:26 03/02/19 11:26 03/02/19 11:26 03/02/19 11:26 Interpretation: Normal - General General appearance: Appears well, Alert In distress: None - HEENT Head: Normocephalic, Atraumatic Eyes: Normal Pupils: PERRL - Respiratory Respiratory status: No respiratory distress Chest status: Nontender Breath sounds: Normal Chest palpation: Normal - Cardiovascular Rhythm: Regular Heart sounds: Normal auscultation Murmur: No - Abdominal Inspection: Obese Distension: No distension Bowel sounds: Normal Tenderness: Nontender - abdomen soft Organomegaly: No organomegaly - Rectal Stool: Heme negative, Black, See lab result, Other - hard - Back Back: Normal, Nontender - Extremities General upper extremity: Normal inspection General lower extremity: Normal inspection - Neurological Neuro grossly intact: Yes - Psychological Associated symptoms: Normal affect, Normal mood - Skin Skin Temperature: Warm Skin Moisture: Dry Skin Color: Normal Course - Re-evaluation Re-evalutation: 03/02/19 12:50 Hemoglobin is 12.2, INR is 2.11, stool is Hemoccult negative. I explained to the patient the Pepto-Bismol will give you black stools that look suspicious for GI bleed. - Vital Signs Vital signs: Temp Pulse Resp BP Pulse Ox 70 13 129/73 H 96 03/02/19 11:26 03/02/19 11:26 03/02/19 11:26 03/02/19 11:26 - Laboratory Result Diagrams: 03/02/19 12:05 03/02/19 12:05 Laboratory results interpreted by me: 03/02/19 03/02/19 03/02/19 12:05 12:05 12:05 MCHC 31.8 L RDW 18.9 H PT 24.0 H Carbon Dioxide 31 H BUN 29 H Discharge - Discharge Clinical Impression: Black stool Condition: Stable Disposition: HOME, SELF-CARE Additional Instructions: Your lab work was normal. The stool was negative for blood. I suspect the dark bowel movements were caused by the Pepto-Bismol you drink. Continue your regular medications. Drink plenty of fluids. Follow-up with your primary care provider as needed. RETURN TO THE EMERGENCY ROOM IF ANY NEW OR WORSENING SYMPTOMS. Referrals: GINETTE GRIFFITH MD [ACTIVE STAFF] - Follow up as needed Scribe Attestation: 03/02/19 12:51 I personally performed the services described in the documentation, reviewed and edited the documentation which was dictated to the scribe in my presence, and it accurately records my words and actions. I personally performed the services described in the documentation, reviewed and edited the documentation which was dictated to the scribe in my presence, and it accurately records my words and actions.
[2019-03-02 12:15] LABS: ABSOLUTE BASOPHILS # (AUTO) 0.1 10^3/uL (0.0-0.2); ABSOLUTE EOSINOPHILS # (AUTO) 0.1 10^3/uL (0.0-0.6); ABSOLUTE LYMPHOCYTES (AUTO) 3.1 10^3/uL (0.5-4.7); ABSOLUTE MONOCYTES (AUTO) 0.5 10^3/uL (0.1-1.4); ABSOLUTE NEUT (AUTO) 4.8 10^3/uL (1.7-8.2); EOSINOPHILS % (AUTO) 0.9 % (0-6); HEMATOCRIT 38.3 % (36.0-47.0); HEMOGLOBIN 12.2 g/dL (12.0-15.5); LYMPHOCYTES % (AUTO) 35.9 % (13-45); MEAN CORPUSCULAR HEMOGLOBIN 27.5 pg (27.0-33.4); MEAN CORPUSCULAR HGB CONC 31.8 g/dL (32.0-36.0); MEAN CORPUSCULAR VOLUME 87 fl (80-97); MONOCYTES % (AUTO) 5.9 % (3-13); PLATELET COUNT 242 10^3/uL (150-450); RED BLOOD COUNT 4.43 10^6/uL (3.72-5.28); RED CELL DISTRIBUTION WIDTH 18.9 % (11.5-14.0); SEGMENTED NEUTROPHILS % (AUTO) 56.3 % (42-78); TOTAL CELLS COUNTED % (AUTO) 100 %; WHITE BLOOD COUNT 8.6 10^3/uL (4.0-10.5)
[2019-03-02 12:33] LABS: INTERNATIONAL RATION (INR) 2.11
[2019-03-02 12:36] LABS: ALBUMIN 3.7 g/dL (3.5-5.0); ALKALINE PHOSPHATASE 66 U/L (38-126); ANION GAP 7 (5-19); ASPARTATE AMINO TRANSFERASE 30 U/L (14-36); BILIRUBIN,DIRECT 0.3 mg/dL (0.0-0.4); BILIRUBIN,TOTAL 0.8 mg/dL (0.2-1.3); BLOOD UREA NITROGEN 29 mg/dL (7-20); CARBON DIOXIDE 31 mmol/L (22-30); CHLORIDE 99 mmol/L (98-107); GLUCOSE 89 mg/dL (75-110); POTASSIUM 4.4 mmol/L (3.6-5.0); TOTAL PROTEIN 6.6 g/dL (6.3-8.2)
[2019-03-02 13:48] VITALS: BP 138/69
== END 2019-03-02 13:48 | disposition home or self-care (01) ==
LOC: ER 11:18
DX: R19.5 Other fecal abnormalities (principal); I48.91 Unspecified atrial fibrillation; I11.0 Hypertensive heart disease with heart failure; I50.9 Heart failure, unspecified; E78.00 Pure hypercholesterolemia, unspecified; E11.9 Type 2 diabetes mellitus without complications; Z86.718 Personal history of other venous thrombosis and embolism; Z90.49 Acquired absence of other specified parts of digestive tract; Z90.710 Acquired absence of both cervix and uterus
CPT/HCPCS: 36415; 80053; 85025; 85610; 99285